=== PATIENT | male | born 1940 | race Caucasian/White ===

== ENCOUNTER 2016-09-02 01:41 | Observation (INO) | payer MEDICARE, BC ==
[~2016-09-02] VITALS: Ht 170.2 cm; Wt 78.0 kg
[2016-09-02] VITALS (12 sets, daily range): BP systolic 98–155; BP diastolic 46–73
[~2016-09-02 01:41] MED LIST: ALBU2.5V14 NEB; ALPR0.25 PO; ALPR0.254 PO; AMLO5TAB2 PO; ASPI-482 PO; ASPI-630 PO; ASPI325T8 PO; ATOR20TA PO; ATOR20TA58 PO; CLOP75TA57 PO; DM/P295L2 PO; DOCU-150 PO; ESCITALOPRAM OX20 MG PO; FURO-69 PO; GABA-586 PO; GUAI600T47 PO; IBUP200T58 PO; LEVO500T59 PO; LIDO30CR TP; LIDO700A4 TP; METO100T11 PO; METO25TA4 PO; MIDO10TA PO; MULT-245 PO; MULT-246 PO; ONDA4TAB11 PO; OXYC-323 PO; OXYC1TAB9 PO; PANT40TA5 PO; POLY17PO5 PO; POLY255P PO; POTA10TA10 PO; PRED-220 PO; PRED5TAB19 PO; PYRI50CA PO; SENN-79 PO; SIMV40TA3 PO; SULF1TAB24 PO; TEMA15CA PO; TEMA30CA PO
[2016-09-02] MEDS ORDERED: oxyCODONE/APAP 10/325 1 TAB TABLET PO PRN (03:30)
[2016-09-02] MEDS ORDERED: ONDANSETRON ODT 4 MG TAB.RAPDIS PO PRN (04:00)
[2016-09-02] MEDS ORDERED: TEMAZEPAM 15 MG CAPSULE PO PRN (04:15)
[2016-09-02 06:25] LABS: HEMATOCRIT 21.1 % (39.0-53.0); HEMOGLOBIN 7.4 g/dL (13.0-17.5)
[2016-09-02] MEDS ORDERED: PANTOPRAZOLE 40 MG TABLET. PO SCH (07:30)
[2016-09-02] MEDS ORDERED: predniSONE 10 MG TABLET PO SCH (08:00)
[2016-09-02] MEDS ORDERED: diphenhydrAMINE 50 MG/ML VIAL IVP PRN (08:15)
[2016-09-02] MEDS ORDERED: ASPIRIN 81 MG TAB.CHEW PO SCH (09:00)
[2016-09-02] MEDS ORDERED: MULTIVITAMIN with MINERAL TABLET. PO SCH (09:00)
[2016-09-02] MEDS ORDERED: ESCITALOPRAM 20 MG TABLET. PO SCH (09:00)
[2016-09-02] MEDS: MIDODRINE 5 MG TABLET PO SCH ×2 (09:02→16:57)
[2016-09-02] MEDS ORDERED: IV NORMAL SALINE 500ML 500 ML ONE (09:25)
[2016-09-02] MEDS ORDERED: FUROSEMIDE 20 MG/2 ML VIAL IVP ONE (12:00)
[2016-09-02 17:33] LABS: HEMATOCRIT 30.2 % (39.0-53.0); HEMOGLOBIN 10.6 g/dL (13.0-17.5)
[2016-09-02] MEDS ORDERED: TEMAZEPAM 15 MG CAPSULE PO SCH (21:00)
[2016-09-02] MEDS ORDERED: ATORVASTATIN CALCIUM 20 MG TABLET PO SCH (21:00)
== END 2016-09-02 18:20 | disposition home or self-care (01) ==
LOC: ICU 02:21 → INTOOBSV 02:21
PROVIDERS: ADMIT Family Medicine; ATTEND Family Medicine
DX: D46.1 Refractory anemia with ring sideroblasts (principal); D46.Z Other myelodysplastic syndromes; I10 Essential (primary) hypertension; E78.5 Hyperlipidemia, unspecified; N40.0 Benign prostatic hyperplasia without lower urinary tract symptoms; J45.909 Unspecified asthma, uncomplicated; J44.9 Chronic obstructive pulmonary disease, unspecified; F32.9 Major depressive disorder, single episode, unspecified; F17.210 Nicotine dependence, cigarettes, uncomplicated; Z87.438 Personal history of other diseases of male genital organs; Z87.898 Personal history of other specified conditions; Z85.46 Personal history of malignant neoplasm of prostate; Z86.010 Personal history of colon polyps; Z82.62 Family history of osteoporosis; Z80.42 Family history of malignant neoplasm of prostate
CPT/HCPCS: 36415; 36430; 85014; 85018; 86850; 86900; 86901; 86920; 87641; 96374; 96375; G0378; G0379; J1200; J1940; J7040; J7512; P9016

== ENCOUNTER 2019-01-18 16:44 | Inpatient (IN) | payer MEDICARE, BC ==
[~2019-01-18] VITALS: Ht 170.2 cm; Wt 73.2 kg
[~2019-01-18 16:44] MED LIST changes: +AMLO5TAB10 PO; -AMLO5TAB2 PO; +METO-247 PO; -METO100T11 PO; +ONDA-84 PO; -ONDA4TAB11 PO; -OXYC-323 PO; +OXYC-411 PO; +OXYC1TAB15 PO; -OXYC1TAB9 PO; -POLY255P PO; +POLY255P11 PO; -SENN-79 PO; +SENN-80 PO; +SIMV40TA18 PO; -SIMV40TA3 PO
--- NOTE | 2019-01-18 17:42 | PHYS DOC ---
Past History Past Medical History: Anxiety, Bronchitis, CAD, Cancer, CHF, Depression, High Cholesterol, Heart Disease, Hypertension, Pneumonia (ALFREDITO OHARA MD) Past Medical History: Anemia, CAD, Cancer, CHF, COPD, Hypertension (ANIBAL ORTIZ MD) Past Surgical History: Cancer Surgery, Tonsillectomy (ALFREDITO OHARA MD) Smoking: Cigarettes, Less than 1pk/day Alcohol Use: Occasionally Drug Use: None (ALFREDITO OHARA MD) Adult General Chief Complaint Chief Complaint: DIZZY/LIGHT HEADED HPI HPI Patient is a 78 -year-old male presenting with dizziness. Patient is a history of myelodysplastic syndrome transfusion-dependent gets them every 2 weeks usually gets them at [facility] but it closed down recently he has a history of CHF CABG Patient Dr. Mora patient says that he's been feeling weak or dizzy lightheaded mild headache he has typical bone pain symptoms these are all symptoms are Worse just before he needs a transfusion. He was supposed to get scheduled for this week but because he was feeling so dizzy and weak he came to the emergency room for evaluation denies chest pain denies melena denies ramón tochezia (ALFREDITO OHARA MD) Review of Systems Review of Systems Constitutional: Denies fever or chills [] Eyes: Denies change in visual acuity, redness, or eye pain [] HENT: Denies nasal congestion or sore throat [] Cardiovascular: No additional information not addressed in HPI [] Integument: Denies rash or skin lesions [] All other systems were reviewed and found to be within normal limits, except as documented in this note. (ALFREDITO OHARA MD) Allergies Allergies Allergies Coded Allergies Type Severity Reaction Last Updated Verified erythromycin base Allergy Intermediate 06/17/13 Yes naproxen Allergy Unknown 01/18/19 Yes pyridostigmine Allergy Unknown 01/18/19 Yes morphine Adverse Reaction Severe Nausea and Vomiting 02/05/14 Yes (ALFREDITO OHARA MD) Physical Exam Physical Exam Constitutional: Well developed, well nourished, no acute distress, non-toxic appearance. [] HENT: Normocephalic, atraumatic, bilateral external ears normal, oropharynx moist, no oral exudates, nose normal. [] Eyes: PERRLA, EOMI, conjunctiva normal, no discharge. [] Neck: Normal range of motion, no tenderness, supple, no stridor. [] Cardiovascular:Heart rate regular rhythm, 3/6 lorne noted Lungs & Thorax: decreased bibasilar sounds Abdomen: Bowel sounds normal, soft, no tenderness, no masses, no pulsatile masses. [] Skin:pale Back: No tenderness, no CVA tenderness. [] Extremities: No tenderness, no cyanosis, no clubbing, ROM intact, Neurologic: Alert and oriented X 3, normal motor function, normal sensory function, no focal deficits noted. [] Psychologic: Affect normal, judgement normal, mood normal. [] (ALFREDITO OHARA MD) Current Patient Data Vital Signs Vital Signs Date Time Temp Pulse Resp B/P (MAP) Pulse Ox O2 Delivery O2 Flow Rate FiO2 01/18/19 16:55 98.6 79 20 95 Room Air Lab Results mperature (Fahrenheit): * 98.6 degrees F (97.6-99.5) Patient Temperature * 98.6 degrees F (97.5-99.5) Temperature Source * Oral Blood Pressure Systolic * 141 mm Hg (100-140) H Blood Pressure Diastolic * 70 mm Hg (60-100) Blood Pressure Mean * 93 mm Hg Blood Pressure Location * Right Arm Blood Pressure Source * Automatic Cuff Pulse Rate * 79 beats per minute (60-90) Pulse Assessment Method * Monitor Respiratory Rate * 20 breaths per minute (12-24) Oxygen Delivery Method * Room Air Bedside Pulse Oximetry * 95 % Treatment Prior to Arrival (ALFREDITO OHARA MD) EKG EKG [] (ALFREDITO OHARA MD) Radiology/Procedures Radiology/Procedures [] (ALFREDITO OHARA MD) Course & Med Decision Making Course & Med Decision Making Pertinent Labs and Imaging studies reviewed. (See chart for details) []78 show male multiple medical problems and bypass surgery in the past congestive heart failure coronary artery disease myelodysplastic syndrome that is transfusion dependent apparently presenting with dizziness lightheadedness concerned about anemia this point time lab work and imaging is in process care will be signed over to Dr. Ortiz (ALFREDITO OHARA MD) Course & Med Decision Making PT. admitted to Dr. Marcelo- plan transfuse 2 units of PRBC. Pt. has hx of rapid drops of his hemoglobin. . 1. Anemia Hgb 8.4 2. Dizzy 3. Thrombocytopenia 73 4. DM =178 5. Hx. CHF 6. Hx CADz 7. Myleo dysplastic syndrome (ANIBAL ORTIZ MD) Dragon Disclaimer Dragon Disclaimer This electronic medical record was generated, in whole or in part, using a voice recognition dictation system. (ALFREDITO OHARA MD) Departure Departure: Disposition: 01 HOME/RESIDENCE PRIOR TO ADM Condition: STABLE Referrals: BERTRAM MARCELO MD (PCP) Dragon Disclaimer This chart was dictated in whole or in part using Voice Recognition software in a busy, high-work load, and often noisy Emergency Department environment. It may contain unintended and wholly unrecognized errors or omissions. (ANIBAL ORTIZ MD) Dragon Disclaimer This chart was dictated in whole or in part using Voice Recognition software in a busy, high-work load, and often noisy Emergency Department environment. It may contain unintended and wholly unrecognized errors or omissions. (ALFREDITO OHARA MD) Dragon Disclaimer This chart was dictated in whole or in part using Voice Recognition software in a busy, high-work load, and often noisy Emergency Department environment. It may contain unintended and wholly unrecognized errors or omissions. (ANIBAL ORTIZ MD) Dragon Disclaimer This chart was dictated in whole or in part using Voice Recognition software in a busy, high-work load, and often noisy Emergency Department environment. It may contain unintended and wholly unrecognized errors or omissions. (ALFREDITO OHARA MD) ALFREDITO OHARA MD Jan 18, 2019 17:42 ANIBAL ORTIZ MD Jan 18, 2019 19:01
[2019-01-18 17:45] LABS: BASO % 0 % (0-3); EOS % 0 % (0-3); HEMATOCRIT 25.2 % (39.0-53.0); HEMOGLOBIN 8.4 g/dL (13.0-17.5); LYMPH # 0.3 x10^3/uL (1.0-4.8); LYMPH % 5 % (24-48); MEAN CORPUSCULAR HEMOGLOBIN 31 pg (25-35); MEAN CORPUSCULAR HGB CONC 33 g/dL (31-37); MEAN CORPUSCULAR VOLUME 92 fL (79-100); MONO # 0.4 x10^3/uL (0.0-1.1); MONO % 7 % (0-9); NEUT # 4.8 x10^3uL (1.8-7.7); NEUT % 88 % (31-73); PLATELET COUNT 73 x10^3/uL (140-400); RED BLOOD COUNT 2.73 x10^6/uL (4.30-5.70); RED CELL DISTRIBUTION WIDTH 17.7 % (11.5-14.5); WHITE BLOOD COUNT 5.5 x10^3/uL (4.0-11.0)
--- NOTE | 2019-01-18 18:29 | RAD ---
Study: CHEST AP ONLY Indication: Dizziness and weakness. Comparison: 03/13/2016 Findings: Interval placement of a left chest wall Port-A-Cath with the tip terminating at the expected location of the distal superior vena cava. Unchanged configuration of the cardiomediastinal silhouette and rex. Linear lung markings at the right lung base that were mostly present on the prior and are suggestive of atelectasis or scarring. No discrete lobar infiltrate or layering effusion. Mild basilar volume loss and left. Millimetric nodular focus. In the left lung apex is most suggestive of a granuloma as a nodule of this size would not typically be seen by radiography unless calcified. Impression: 1. Normally positioned left chest wall Port-A-Cath. 2. No acute radiographic abnormality of the chest. Atelectasis or scarring at the right lung base as well as mild basilar volume loss on the left. Electronically signed by: CE LÓPEZ MD (01/18/2019 6:26 PM) [facility]
[2019-01-18 18:38] LABS: ALBUMIN 3.9 g/dL (3.4-5.0); ALBUMIN/GLOBULIN RATIO 1.7 (1.0-1.7); CREATININE 1.3 mg/dL (0.7-1.3); GFR 53.7; POTASSIUM 4.6 mmol/L (3.5-5.1); TOTAL BILIRUBIN 0.8 mg/dL (0.2-1.0); TOTAL PROTEIN 6.2 g/dL (6.4-8.2)
[2019-01-18] MEDS ORDERED: ONDANSETRON PF 4 MG/2 ML VIAL. IV PRN (18:45)
[2019-01-18] MEDS ORDERED: ACETAMINOPHEN 325 MG TABLET PO PRN (18:45)
[2019-01-18] MEDS ORDERED: diphenhydrAMINE 50 MG/ML VIAL IVP PRN (18:45)
[2019-01-18] MEDS ORDERED: ACETAMINOPHEN 500 MG TABLET PO PRN (19:00)
[2019-01-18 19:19] LABS: BACTERIA,URINE 0 /HPF (0-FEW); BILIRUBIN,URINE NEG (NEG); CLARITY,URINE CLEAR; COLOR,URINE YELLOW; GLUCOSE,URINE NEG (NEG); NITRITE,URINE NEG (NEG); RBC,URINE 0 /HPF (0-2); SQUAMOUS EPITHELIAL CELL,UR OCC /LPF; UROBILINOGEN,URINE 0.2 mg/dL (0.2 mg/dL); WBC,URINE OCC /HPF (0-4)
--- NOTE | 2019-01-18 20:30 | NUR ---
Admit to [facility] room 111 via EMS gurney. A/O x 4. VSS. Family at bedside. Orientated to room and wandy light. Reviewed POC to include RBC transfusion, Benadryl and lasix and not to get out of bed without assist. Patient verbalized understanding. Resting in bed with call light at hand. Family at bedside.
[2019-01-18 20:49] VITALS: BP 112/68
[2019-01-18] MEDS ORDERED: ALBU2.5V5 NEB (21:33)
[2019-01-18] MEDS ORDERED: BENZ-8 PO (21:35)
[2019-01-18] MEDS ORDERED: [UNRECOGNIZED DRUG - OTHER] TOP (21:38)
[2019-01-18] MEDS ORDERED: DEFERASIROX PO (21:54)
[2019-01-18] MEDS ORDERED: FOLI20CA PO (21:56)
[2019-01-18] MEDS ORDERED: FURO80TA3 PO (21:58)
[2019-01-18] MEDS ORDERED: FURO40TA4 PO (21:59)
[2019-01-18] MEDS ORDERED: HYDR28OI2 TP (22:01)
[2019-01-18] MEDS ORDERED: HYDR20TA PO (22:03)
[2019-01-18] MEDS ORDERED: HYDR10TA PO (22:04)
[2019-01-18] MEDS ORDERED: LOPE2CAP PO (22:09)
[2019-01-18] MEDS ORDERED: MIRT30TA3 PO (22:10)
[2019-01-18] MEDS ORDERED: NITR0.4T22 SL (22:11)
[2019-01-18] MEDS ORDERED: VIT1TABL32 PO (22:12)
[2019-01-18] MEDS ORDERED: POTA10TA5 PO (22:14)
[2019-01-18] MEDS ORDERED: SPIR50TA4 PO (22:16)
[2019-01-18] MEDS ORDERED: TIOT18CA IH (22:35)
[2019-01-18] MEDS ORDERED: oxyCODONE/APAP 10/325 1 TAB TABLET PO PRN (22:45)
[2019-01-18] MEDS ORDERED: BENZONATATE 100 MG CAPSULE. PO PRN (22:45)
[2019-01-18] MEDS ORDERED: NITROGLYCERIN SUBLINGUAL 0.4 MG BOTTLE OF 25. SL PRN (22:45)
[2019-01-18] MEDS ORDERED: HYDROCORTISONE 1% TOPICAL OINTMENT 30GM TUBE. TP PRN (23:00)
[2019-01-18] MEDS ORDERED: TEMAZEPAM 15 MG CAPSULE PO PRN (23:00)
[2019-01-18] MEDS ORDERED: ONDANSETRON ODT 4 MG TAB.RAPDIS PO PRN (23:00)
[2019-01-18 23:14] VITALS: BP 137/71
[2019-01-18 23:35] VITALS: BP 116/68
[2019-01-18 23:50] VITALS: BP 121/73
[2019-01-19] VITALS (12 sets, daily range): BP systolic 100–122; BP diastolic 53–74
[2019-01-19] MEDS ORDERED: ALBUTEROL SULFATE 2.5 MG/3 ML NEBU. NEB PRN
[2019-01-19] MEDS: FUROSEMIDE 40 MG/4 ML VIAL IVP PRN ×2 (02:39→15:21)
[2019-01-19 07:13] LABS: BASO % 0 % (0-3); EOS % 0 % (0-3); HEMATOCRIT 26.2 % (39.0-53.0); HEMOGLOBIN 8.8 g/dL (13.0-17.5); LYMPH # 0.6 x10^3/uL (1.0-4.8); LYMPH % 10 % (24-48); MEAN CORPUSCULAR HEMOGLOBIN 31 pg (25-35); MEAN CORPUSCULAR HGB CONC 34 g/dL (31-37); MEAN CORPUSCULAR VOLUME 92 fL (79-100); MONO # 0.6 x10^3/uL (0.0-1.1); MONO % 10 % (0-9); NEUT # 4.8 x10^3uL (1.8-7.7); NEUT % 80 % (31-73); PLATELET COUNT 71 x10^3/uL (140-400); RED BLOOD COUNT 2.85 x10^6/uL (4.30-5.70); RED CELL DISTRIBUTION WIDTH 16.2 % (11.5-14.5); WHITE BLOOD COUNT 5.9 x10^3/uL (4.0-11.0)
[2019-01-19 07:27] LABS: CREATININE 1.2 mg/dL (0.7-1.3); GFR 58.9
[2019-01-19] MEDS ORDERED: HYDROCORTISONE 10 MG TABLET PO SCH ×2 (08:00→21:00)
[2019-01-19] MEDS: IPRATRPIUM/ALBUTEROL 0.5/2.5MG 3 ML NEBU. NEB SCH ×2 (08:00→15:56)
[2019-01-19] MEDS ORDERED: POTASSIUM CHLORIDE 10 MEQ TABLET.ER. PO SCH (08:00)
[2019-01-19] MEDS ORDERED: LOPERAMIDE 2 MG CAPSULE PO SCH (09:00)
[2019-01-19] MEDS ORDERED: FUROSEMIDE 80 MG TABLET PO SCH (09:00)
[2019-01-19] MEDS ORDERED: SPIRONOLACTONE 25 MG TABLET PO SCH (09:00)
[2019-01-19] MEDS ORDERED: ASPIRIN 81 MG TAB.CHEW PO SCH (09:00)
[2019-01-19] MEDS ORDERED: FOLIC ACID 1 MG TABLET PO SCH (09:00)
[2019-01-19] MEDS ORDERED: CITALOPRAM 20 MG TABLET. PO SCH (09:00)
[2019-01-19] MEDS ORDERED: MULTIVITAMIN I-VITE TABLET. PO SCH (09:00)
[2019-01-19] MEDS ORDERED: diphenhydrAMINE HCL 25 MG CAPSULE PO PRN (11:15)
--- NOTE | 2019-01-19 11:17 | HP ---
ADMIT DATE: 01/18/2019 HISTORY OF PRESENT ILLNESS: A 78-year-old male with history of myelodysplastic syndrome. The patient has been feeling lightheaded and tired and weak. He has a standing order with Dr. Payton who is the head of Hematology/Oncology down at to receive blood transfusions for hemoglobins of 8 if he is symptomatic. He said he was symptomatic and so he was brought in for transfusion of 1 unit packed RBCs. Went up to 8.6 or 8 I believe and referral was made to Dr. Sánchez, pathologist who agreed to give him a second unit for now until Dr. Edwards could discuss with Dr. Payton the necessity of these situations with his transfusions, so the patient was admitted for transfusion. PAST MEDICAL HISTORY: As noted myelodysplastic disorder, right carotid endarterectomy, right-sided neck numbness since endarterectomy, chronic AFib, heart murmur, aneurysms, AAA, hypercholesterolemia, interstitial lung disease, cholecystectomy, bowel surgery, obesity. He has had myelodysplastic syndrome, orthopedic surgery of the right knee x 2, psychiatric problems, depression, anemia, cancer. IMMUNIZATIONS: Tetanus diphtheria, influenza, pneumococcal all up-to-date. FAMILY HISTORY: Mother with lung cancer, father with some form of cancer. Brother with cancer. ALLERGIES: ADVERSE EFFECTS TO ERYTHROMYCIN, MORPHINE, NAPROXEN AND PYRIDOSTIGMINE. SOCIAL HISTORY: The patient used to be a former smoker, but has not smoked for many years. Denies alcohol or drug use. CODE STATUS: The patient is a full code. REVIEW OF SYSTEMS: The patient has lightheadedness, shortness of breath, more so than usual. Denies chest pain; however, denies abdominal pain. Denies nausea, vomiting, melena, hematochezia, or hematemesis. Neurologically baseline except for his weakness, which he attributes to the low blood count. MEDICATIONS: Spiriva, albuterol, DuoNeb treatments, Lipitor 20, nitroglycerin, spironolactone, aspirin, oxycodone, Lexapro, temazepam, potassium chloride, furosemide, benzoate, loperamide, hydrocortisone, folic acid, multivitamins, deferasirox. PHYSICAL EXAMINATION: GENERAL: This is a white male, looking a little bit weak, lightheaded. VITAL SIGNS: Blood pressure 88/83, respiratory rate 20, pulse 92, afebrile. HEENT: The patient's head was atraumatic, normocephalic. Eyes: PERRLA without jaundice. The mouth and throat were normal. NECK: Supple, no JVD or thyromegaly. LUNGS: Diminished, but basically clear. CARDIOVASCULAR: Irregularly irregular rhythm. ABDOMEN: Soft, nontender, no rebound or guarding. Positive bowel sounds, no hepatosplenomegaly was noted. EXTREMITIES: No clubbing, cyanosis or edema. NEUROLOGIC: The patient was alert and oriented, little bit lightheaded, weak as noted, but otherwise no focal neurological abnormalities were noted throughout this individual. LABORATORY DATA: Showed an initial hemoglobin of 8.4 and hematocrit 25, white count 5, platelets low at 73. Sodium and potassium 137 and 4.6, BUN and creatinine 29 and 1.3, and a blood sugar in the 150s average. IMPRESSION: Myelodysplastic syndrome, anemia secondary to #1, history of congestive heart failure. PLAN: The patient will be transfused as noted in the HPI. BERTRAM MARCELO MD DR: DONALDO/silvia JOB#: [id number] / [id number]
--- NOTE | 2019-01-19 11:45 | NUR ---
1 more unit was ordered Dr Escudero did speak with Dr Sánchez the pathologist. PT can be discharged after second unit is complete, then pt will be coming in for scheduled blood transfusions. Wale HILLS
--- NOTE | 2019-01-19 13:00 | NUR ---
Tubing primed with saline then blood. Started transfusion at 60 cc per hour for 15 minutes, no reaction noted and increased rate to 100. IV started to leak, port was accessed using sterile technique with at 20g barnett needle. Blood transfusing with ease. Wale Mcdonough
[2019-01-19] MEDS ORDERED: FUROSEMIDE 40 MG/4 ML VIAL IVP ONE (13:30)
--- NOTE | 2019-01-19 15:24 | NUR ---
Blood transfusion completed,pt tolerated well. PT to be discharged home. Inge HILLS
--- NOTE | 2019-01-19 15:45 | NUR ---
PT dc to home. PT is able to verbalize understanding of discharge instructions and medications. Pt to have an H and H on Sunday. PT is in the process of setting up outpatient transfusion orders for q 2 weeks here OP. After DR Escudero had to call to talk to DR Sánchez the pathologist today, They want to review his outpatient case before authorizing. Wale HILLS
[2019-01-19] MEDS ORDERED: FUROSEMIDE 40 MG TABLET PO SCH (16:00)
[2019-01-19] MEDS ORDERED: MIRTAZAPINE 30 MG TABLET PO SCH (21:00)
[2019-01-19] MEDS ORDERED: ATORVASTATIN CALCIUM 20 MG TABLET PO SCH (21:00)
--- NOTE | 2019-01-20 12:14 | EKG ---
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
--- NOTE | 2019-01-24 17:17 | DS ---
DATE OF DISCHARGE: 01/19/2019 HOSPITAL COURSE: A 78-year-old gentleman came in for blood transfusion. He has a myelodysplastic syndrome. He is followed by doctors at the Hematology department at the [facility] They in turn have given the order to transfuse this gentleman if his hemoglobin goes in the low 8s and he is symptomatic. He did come in feeling generalized weakness and shortness of breath and as a result of this, he was feeling lightheaded, tired and weak. The patient came in and was given 1 unit and then the second unit was approved by the pathologist. He will talk to the surveillance sensor officer/oncologist, Dr. Strange down at to determine whether or not this gentleman needs this much blood. But in the meantime, he was transfused. His last blood pressure 122/74, respiratory rate 20, pulse was good at 80. The patient had a chest x-ray, which showed a Port-A-Cath, otherwise, basically unremarkable. The patient made good progress. See MRAD. He will be on a regular diet, decreased activity. Followup with his doctors down there at for further evaluation. IMPRESSION: Myelodysplastic disorder, anemia secondary to #1. PLAN: As above. Continue to monitor the patient as an outpatient and make further evaluation on him as indicated. BERTRAM MARCELO MD DR: DONALDO/silvia JOB#: [id number] / [id number]
== END 2019-01-19 15:45 | disposition home or self-care (01) | DRG 74 ==
LOC: ER 16:44 → 1 SOUTH 19:21
PROVIDERS: ADMIT Family Medicine; ATTEND Family Medicine
PROC: 30233N1 Transfusion of Nonautologous Red Blood Cells into Peripheral Vein, Percutaneous Approach (ICD-10-PCS; principal; 2019-01-18)
DX: G90.8 Other disorders of autonomic nervous system (principal); I48.20 Chronic atrial fibrillation, unspecified; D46.9 Myelodysplastic syndrome, unspecified; F41.9 Anxiety disorder, unspecified; I25.10 Atherosclerotic heart disease of native coronary artery without angina pectoris; I11.0 Hypertensive heart disease with heart failure; I50.9 Heart failure, unspecified; E78.00 Pure hypercholesterolemia, unspecified; J44.9 Chronic obstructive pulmonary disease, unspecified; D69.6 Thrombocytopenia, unspecified; D63.8 Anemia in other chronic diseases classified elsewhere; F32.9 Major depressive disorder, single episode, unspecified; E66.9 Obesity, unspecified; Z68.25 Body mass index [BMI] 25.0-25.9, adult; Z80.1 Family history of malignant neoplasm of trachea, bronchus and lung; Z95.1 Presence of aortocoronary bypass graft; Z88.1 Allergy status to other antibiotic agents; Z88.5 Allergy status to narcotic agent; Z87.891 Personal history of nicotine dependence
CPT/HCPCS: 36415; 71045; 80048; 80053; 81001; 83036; 84484; 85025; 85045; 86850; 86900; 86901; 86920; 93005; J1200; J1940; P9016; Q0163; 99285-25

== ENCOUNTER 2019-04-18 00:11 | Inpatient (IN) | payer MEDICARE, BC ==
[2019-04-18] VITALS (13 sets, daily range): BP systolic 102–120; BP diastolic 50–74
[~2019-04-18] VITALS: Ht 170.2 cm; Wt 76.9 kg
[~2019-04-18 00:11] MED LIST changes: +ALBU2.5V5 NEB; +BENZ-8 PO; +DEFERASIROX PO; +FOLI20CA PO; +FURO40TA4 PO; +FURO80TA3 PO; +HYDR10TA PO; +HYDR20TA PO; +HYDR28OI2 TP; +LOPE2CAP PO; +MIRT30TA3 PO; +NITR0.4T22 SL; +POTA10TA5 PO; +SPIR50TA4 PO; +TIOT18CA IH; +VIT1TABL32 PO; +[UNRECOGNIZED DRUG - OTHER] TOP
--- NOTE | 2019-04-18 00:46 | PHYS DOC ---
Past History Past Medical History: Anemia, CAD, Cancer, CHF, COPD, Hypertension Past Surgical History: Cancer Surgery, Tonsillectomy Smoking: Cigarettes, Less than 1pk/day Alcohol Use: Occasionally Drug Use: None Adult General Chief Complaint Chief Complaint: SHORTNESS OF BREATH HPI HPI Patient is a 78-year-old male with history of CAD, congestive heart failure, mild dysplastic syndrome and anemia who presents with progressive shortness breath past several hours. Patient wears oxygen at rest reports increased dyspnea with mild exertion and when supine. Reports chronic cough with clear sputum. No fevers chills or sweats. Reports chest tightness no chest pain. No abdominal pain. Denies increased leg pain or swelling. States she frequently becomes short of breath when his hemoglobin drops below 8.5 g/dL. Last had CBC drawn 2 days ago with a hemoglobin of 9.7 g/dL noted. [] Review of Systems Review of Systems Review of symptoms as per history of present illness. All other review symptoms are negative All other systems were reviewed and found to be within normal limits, except as documented in this note. Allergies Allergies Allergies Coded Allergies Type Severity Reaction Last Updated Verified erythromycin base Allergy Intermediate 06/17/13 Yes naproxen Allergy Unknown 01/18/19 Yes pyridostigmine Allergy Unknown 01/18/19 Yes morphine Adverse Reaction Severe Nausea and Vomiting 02/05/14 Yes Physical Exam Physical Exam Constitutional: Well developed, well nourished, no acute distress, non-toxic appearance. [] HENT: Normocephalic, atraumatic, bilateral external ears normal, oropharynx moist, no oral exudates, nose normal. [] Eyes: PERRLA, EOMI, conjunctiva normal, no discharge. [] Neck: Normal range of motion, no tenderness, supple, no stridor. [] Cardiovascular: Irregular rhythm, systolic heart murmur[] Lungs & Thorax respirations nonlabored, coarse breath sounds throughout all lung solitario most pronounced at bases, trace peripheral edema [] Abdomen: Bowel sounds normal, soft, no tenderness, no masses, no pulsatile masses. [] Skin: Warm, dry, no erythema, no rash. [] ] Extremities: No tenderness, no cyanosis, no clubbing, ROM intact, no edema. [] Neurologic: Alert and oriented X 3, normal motor function, normal sensory func tion, no focal deficits noted. [] Psychologic: Affect normal, judgement normal, mood normal. [] Current Patient Data Vital Signs Vital Signs Date Time Temp Pulse Resp B/P (MAP) Pulse Ox O2 Delivery O2 Flow Rate FiO2 04/18/19 00:11 98.0 77 16 84/34 (51) 97 Room Air EKG EKG EKG: A. fib, rate 80, no acute ST-T wave changes, QTC[] Radiology/Procedures Radiology/Procedures Chest x-ray: Pulmonary vascular congestion] Course & Med Decision Making Course & Med Decision Making Pertinent Labs and Imaging studies reviewed. (See chart for details) [CHF exacerbation. IV lasix given. Will admit to Dr. Escudero's service. ] Dragon Disclaimer Dragon Disclaimer This electronic medical record was generated, in whole or in part, using a voice recognition dictation system. Departure Departure: Impression: Primary Impression: Anemia Additional Impression: Dyspnea Disposition: ADMITTED INPATIENT Admitting Physician: Dean Escudero Condition: IMPROVED Referrals: DEAN ESCUDERO MD (PCP) Problem Qualifiers SHADE CROWE DO Apr 18, 2019 00:46
--- NOTE | 2019-04-18 00:49 | RAD ---
CHEST AP ONLY History: Shortness of breath Comparison: January 18, 2019 Findings: Mild bibasilar linear atelectasis. Stable left chest wall port. No pleural effusion. No pneumothorax. Unchanged heart size. Impression: 1. Mild bibasilar linear atelectasis. Electronically signed by: Giles Cline DO (04/18/2019 12:46 AM) [id number]
[2019-04-18] MEDS ORDERED: FUROSEMIDE 40 MG/4 ML VIAL IVP ONE (01:00)
[2019-04-18 01:12] LABS: BASO % 0 % (0-3); EOS % 0 % (0-3); HEMATOCRIT 26.4 % (39.0-53.0); HEMOGLOBIN 8.6 g/dL (13.0-17.5); LYMPH # 0.5 x10^3/uL (1.0-4.8); LYMPH % 9 % (24-48); MEAN CORPUSCULAR HEMOGLOBIN 30 pg (25-35); MEAN CORPUSCULAR HGB CONC 33 g/dL (31-37); MEAN CORPUSCULAR VOLUME 92 fL (79-100); MONO # 0.6 x10^3/uL (0.0-1.1); MONO % 10 % (0-9); NEUT # 4.8 x10^3uL (1.8-7.7); NEUT % 81 % (31-73); PLATELET COUNT 113 x10^3/uL (140-400); RED BLOOD COUNT 2.86 x10^6/uL (4.30-5.70); RED CELL DISTRIBUTION WIDTH 16.9 % (11.5-14.5); WHITE BLOOD COUNT 5.9 x10^3/uL (4.0-11.0)
[2019-04-18 01:19] LABS: CALCIUM 7.5 mg/dL (8.5-10.1); CREATININE 1.2 mg/dL (0.7-1.3); GFR 58.9; POTASSIUM 3.9 mmol/L (3.5-5.1)
[2019-04-18 01:25] LABS: ALBUMIN 4.1 g/dL (3.4-5.0); ALBUMIN/GLOBULIN RATIO 1.7 (1.0-1.7); TOTAL BILIRUBIN 0.8 mg/dL (0.2-1.0); TOTAL PROTEIN 6.5 g/dL (6.4-8.2)
[2019-04-18] MEDS ORDERED: ONDANSETRON PF 4 MG/2 ML VIAL. IV PRN (01:30)
[2019-04-18] MEDS ORDERED: IV NORMAL SALINE 1,000ML 1,000 ML IV ONE (02:15)
[2019-04-18] MEDS: oxyCODONE/APAP 10/325 1 TAB TABLET PO PRN ×2 (03:52→18:03)
--- NOTE | 2019-04-18 04:25 | EKG ---
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
[2019-04-18 05:28] LABS: BASO % 1 % (0-3); EOS % 0 % (0-3); HEMATOCRIT 23.5 % (39.0-53.0); HEMOGLOBIN 7.8 g/dL (13.0-17.5); LYMPH # 0.6 x10^3/uL (1.0-4.8); LYMPH % 13 % (24-48); MEAN CORPUSCULAR HEMOGLOBIN 30 pg (25-35); MEAN CORPUSCULAR HGB CONC 33 g/dL (31-37); MEAN CORPUSCULAR VOLUME 92 fL (79-100); MONO # 0.5 x10^3/uL (0.0-1.1); MONO % 10 % (0-9); NEUT # 3.5 x10^3uL (1.8-7.7); NEUT % 77 % (31-73); PLATELET COUNT 98 x10^3/uL (140-400); RED BLOOD COUNT 2.56 x10^6/uL (4.30-5.70); RED CELL DISTRIBUTION WIDTH 17.1 % (11.5-14.5); WHITE BLOOD COUNT 4.6 x10^3/uL (4.0-11.0)
[2019-04-18 05:34] LABS: CALCIUM 7.2 mg/dL (8.5-10.1); CREATININE 1.2 mg/dL (0.7-1.3); GFR 58.9; POTASSIUM 3.7 mmol/L (3.5-5.1)
[2019-04-18] MEDS ORDERED: HEPARIN PF 500 UNIT/5 ML DISP.SYRIN. IVP ONE (06:30)
[2019-04-18] MEDS ORDERED: ACETAMINOPHEN 325 MG TABLET PO ONE (06:30)
[2019-04-18] MEDS ORDERED: diphenhydrAMINE 50 MG/ML VIAL IVP ONE (06:30)
[2019-04-18] MEDS ORDERED: FUROSEMIDE 20 MG/2 ML VIAL IVP ONE ×2 (06:30)
[2019-04-18] MEDS ORDERED: LOPERAMIDE 2 MG CAPSULE PO SCH (09:00)
[2019-04-18] MEDS ORDERED: FUROSEMIDE 40 MG/4 ML VIAL IVP SCH (09:00)
[2019-04-18] MEDS ORDERED: clonazePAM 0.5 MG TABLET PO PRN (09:45)
[2019-04-18] MEDS: POTASSIUM CHLORIDE 10 MEQ TABLET.ER. PO SCH (10:05)
[2019-04-18] MEDS: ASPIRIN 81 MG TAB.CHEW PO SCH (10:05)
[2019-04-18] MEDS: CITALOPRAM 20 MG TABLET. PO SCH (10:05)
[2019-04-18] MEDS: FOLIC ACID 1 MG TABLET PO SCH (10:05)
--- NOTE | 2019-04-18 12:41 | RAD ---
Clinical Indications: Syncope. History of right endarterectomy.. Exam : Carotid Duplex with Grayscale Ultrasound and Spectral and Color Doppler Analysis: PQRS Compliance Statement - Stenosis calculations for CT, MR and conventional angiography are based upon measurement of the distal ICA diameter in accordance with the NASCET methodology. Stenosis calculations for carotid ultrasound studies are derived from validated velocity criteria which are known to correlate with the NASCET methodology. Comparison study: None available. Findings: The common, internal and external carotid arteries were examined by grayscale, color and spectral Doppler ultrasound. Postendarterectomy changes are present in the right internal carotid artery. Scattered atherosclerotic plaque along the right common carotid artery is present. Heavier plaque burden is present along the left carotid artery system. Flow in both vertebral arteries was antegrade and normal. The following are the velocities and ratios in the carotid arteries on both sides: RIGHT ICA PV: 122cm/sec RIGHT CCA PV: 73cm/sec RIGHT ICA ED: 60cm/sec RIGHT IC/CCPV: 1.6 RIGHT VERTEBRAL: antegrade flow RIGHT % STENOSIS: Less than 50 percent LEFT ICA PV: 308cm/sec LEFT CCA PV: 54cm/sec LEFT ICA ED: 113cm/sec LEFT IC/CCPV: 4.1 LEFT VERTEBRAL: antegrade flow LEFT % STENOSIS: Greater than 70 percent <50% ICA Stenosis: PSV < 125cm/s (EDV < 40cm/s; SVR < 2.0) 50-69% ICA Stenosis: PSV < 125-229cm/s (EDV 40-99cm/s; SVR 2.0-3.9) >70% ICA Stenosis: PSV > 230cm/s (EDV >100cm/s; SVR >4.0) Impression: 1. Greater than 70 percent stenosis of the left proximal internal carotid artery 2. Less than 50 percent stenosis of the distal right internal carotid artery, status post endarterectomy. Electronically signed by: Blanca Mckeon MD (04/18/2019 12:38 PM) [id number]
[2019-04-18] MEDS ORDERED: LOPERAMIDE 2 MG CAPSULE PO PRN (14:15)
[2019-04-18] MEDS: clonazePAM 0.5 MG TABLET PO PRN (14:18)
--- NOTE | 2019-04-18 14:42 | PDOC2 ---
CONSULT Date of Admission DATE: 04/18/19 TIME: 14:27 Reason for Consult: Congestive heart failure Referring Physician: Dr. Escudero Chief Complaint Shortness of breath Source: Chart review, Patient Problem List Problems Medical Problems: (1) Anemia Status: Acute (2) Dyspnea Status: Acute History of Present Illness 78-year-old male with history of coronary artery disease, heart failure with preserved ejection fraction, tricuspid regurgitation with RV dilatation, s/p Cardiomems usually followed by heart failure and transplant clinic at [facility] has history of myelodysplastic syndrome and has had recurrent outpatient blood transfusions at [facility] in the past. He felt like his anemia was coming back with his usual symptoms of dyspnea on mild exertion and initially presented to [facility] and subsequently transferred to [facility] for blood transfusion for hemoglobin of 7.8. He denied any chest pain, palpitations or syncope. His dyspnea improved since admission after diuresis and blood transfusion. Past Medical History Heart failure with preserved ejection fraction Severe tricuspid regurgitation with RV dilatation and dysfunction Coronary artery disease s/p PTCA without any stent placement in 2009 Abdominal aortic aneurysm s/p surgical repair in 2009 CardioMEMS placement 2-3 years ago with last check showing PAD 15 mmHg Myelodysplastic syndrome with recurrent anemia and blood transfusions Paroxysmal atrial fibrillation CAD stage 3 Adrenal insufficiency Pulmonary embolism Interstitial lung disease Depression Carotid artery stenosis Past Surgical History Tonsillectomy Surgical repair of abdominal aortic aneurysm Family History Not contributory Social History Patient smokes less than one pack of cigars daily and admitted to occasional alcohol use. He denied any drug abuse Current Medications Current Medications Furosemide (Lasix) 40 mg 1X ONCE IVP Last administered on 04/18/19at 01:50; Start 04/18/19 at 01:00; Stop 04/18/19 at 01:02; Status DC Ondansetron HCl (Zofran) 4 mg PRN Q4HRS PRN IV NAUSEA/VOMITING; Start 04/18/19 at 01:30; Stop 04/19/19 at 01:29 Furosemide (Lasix) 40 mg Q12HR IVP ; Start 04/18/19 at 09:00; Stop 04/18/19 at 14:07; Status DC Sodium Chloride 1,000 ml @ 60 mls/hr 1X ONCE IV Last administered on 04/18/19at 02:06; Start 04/18/19 at 02:15; Stop 04/18/19 at 18:54 Oxycodone/ Acetaminophen (Percocet 10/325) 1 tab PRN Q6HRS PRN PO PAIN Last administered on 04/18/19at 03:52; Start 04/18/19 at 03:15 Acetaminophen (Tylenol) 650 mg 1X ONCE PO Last administered on 04/18/19at 07:07; Start 04/18/19 at 06:30; Stop 04/18/19 at 06:31; Status DC Diphenhydramine HCl (Benadryl) 25 mg 1X ONCE IVP Last administered on 04/18/19 07:07; Start 04/18/19 at 06:30; Stop 04/18/19 at 06:31; Status DC Furosemide (Lasix) 20 mg 1X ONCE IVP Last administered on 04/18/19at 10:04; Start 04/18/19 at 06:30; Stop 04/18/19 at 06:31; Status DC Furosemide (Lasix) 20 mg 1X ONCE IVP ; Start 04/18/19 at 06:30; Stop 04/18/19 at 06:31; Status DC Heparin Sodium (Porcine) (Hep Lock Adult) 500 unit 1X ONCE IVP ; Start 04/18/19 at 06:30; Stop 04/18/19 at 06:31; Status DC Aspirin (Children'S Aspirin) 81 mg DAILY PO Last administered on 04/18/19at 10:05; Start 04/18/19 at 09:00 Loperamide HCl (Imodium) 2 mg DAILY PO ; Start 04/18/19 at 09:00 Citalopram Hydrobromide (CeleXA) 40 mg DAILY PO Last administered on 04/18/19at 10:05; Start 04/18/19 at 09:00 Folic Acid (Folic Acid) 1 mg DAILY PO Last administered on 04/18/19 10:05; Start 04/18/19 at 09:00 Potassium Chloride (Klor-Con) 10 meq DAILYWBKFT PO Last administered on 04/18/19at 10:05; Start 04/18/19 at 09:00 Clonazepam (KlonoPIN) 0.5 mg PRN Q8HRS PRN PO ANXIETY / AGITATION Last administered on 04/18/19at 10:05; Start 04/18/19 at 09:45; Stop 04/18/19 at 14:07; Status DC Clonazepam (KlonoPIN) 0.5 mg PRN Q4HRS PRN PO ANXIETY / AGITATION Last administered on 04/18/19at 14:18; Start 04/18/19 at 14:15 Furosemide (Lasix) 40 mg [id number] IVP ; Start 04/18/19 at 14:30 Active Scripts Active Temazepam 30 Mg Capsule 1 Cap PO QHS Reported Spiriva (Tiotropium [place]) 18 Mcg Cap.w.dev 18 Mcg IH DAILY Spironolactone 50 Mg Tablet 50 Mg PO DAILY Klor-Con 10 (Potassium Chloride) 10 Meq Tablet.er 4 Tab PO DAILY 30 Days Ocuvite Tablet (Vit A,C & E/Lutein/Minerals) 1 Each Tablet 1 Tab PO DAILY 30 Days NITROGLYCERIN SubLingual (Nitroglycerin) 0.4 Mg Tab.subl 0.4 Mg SL PRN Q5MIN PRN Mirtazapine 30 Mg Tablet 30 Mg PO HS Loperamide (Loperamide Hcl) 2 Mg Capsule 2 Mg PO DAILY Take 2 capsules by mouth initially, followed by 1 capsule by mouth after each loose stool up to a maximum of 8 tablets in 24 hours Cortef (Hydrocortisone) 10 Mg Tablet 10 Mg PO HS Cortef (Hydrocortisone) 20 Mg Tablet 20 Mg PO DAILY Hydrocortisone (Hydrocortisone Acetate) 28 Gm Oint...g. 28 Gm TP Q6HRS Furosemide 80 Mg Tablet 80 Mg PO DAILY Folic Acid 20 Mg Capsule 1 Cap PO DAILY 30 Days [Deferasirox] Unknown Dose PO [clobetas] TOP WEEKLY Benzonatate 100 Mg Capsule 100 Mg PO Q4HRS PRN Albuterol Sulfate Neb Soln (Albuterol Sulfate) 2.5 Mg/3 Ml Vial.neb 2.5 Mg NEB Q6HRS Oxycodone-Acetaminophen 10-325 (Oxycodone Hcl/Acetaminophen) 1 Each Tablet 1 Tab PO PRN Q6HRS PRN NEXT DOSE DUE: DATE: TODAY TIME: IF NEEDED Aspirin 81 Mg Tab.chew 81 Mg PO DAILY NEXT DOSE DUE: DATE: RESTART TODAY TIME: WHEN YOU GET HOME Atorvastatin Calcium 20 Mg Tablet 20 Mg PO QHS LAST DOSE GIVEN: DATE: YESTERDAY TIME: AT BEDTIME NEXT DOSE DUE: DATE: TODAY TIME: AT BEDTIME Ondansetron Hcl 4 Mg Tablet 8 Mg PO Q8HRS PRN NEXT DOSE DUE: DATE: TODAY TIME: IF NEEDED Escitalopram Oxalate 20 Mg Tablet 1 Tab PO DAILY NEXT DOSE DUE: DATE: RESTART TODAY TIME: WHEN YOU GET HOME Allergies: Coded Allergies: erythromycin base (Verified Allergy, Intermediate, 06/17/13) naproxen (Verified Allergy, Unknown, 01/18/19) pyridostigmine (Verified Allergy, Unknown, 01/18/19) morphine (Verified Adverse Reaction, Severe, Nausea and Vomiting, 02/05/14) PSYCHOLOGICAL ROS: No: Hallucinations Eyes: No: Loss of vision HEENT: No: Epistaxis Respiratory: YES: Cough, Shortness of breath; No: Hemoptysis Cardiovascular: No: Chest Pain Gastrointestinal: No: Vomiting, Diarrhea Neurological: No: Seizures Skin: No: Rash General: Alert, No acute distress HEENT: Atraumatic, PERRLA Lungs: Other (scattered crepitation bilaterally) Heart: Regular rate, Other (PSM left lower PSB) Abdomen: Soft Extremities: Other (trace edema) Psych/Mental Status: Mood NL VITALS Vital Signs Date Time Temp Pulse Resp B/P (MAP) Pulse Ox O2 Delivery O2 Flow Rate FiO2 04/18/19 11:41 98.0 86 16 117/52 (73) 98 Nasal Cannula 3.0 Labs Laboratory Tests Test 04/18/19 00:49 04/18/19 05:10 04/18/19 08:08 White Blood Count 5.9 x10^3/uL (4.0-11.0) 4.6 x10^3/uL (4.0-11.0) Red Blood Count 2.86 x10^6/uL (4.30-5.70) 2.56 x10^6/uL (4.30-5.70) Hemoglobin 8.6 g/dL (13.0-17.5) 7.8 g/dL (13.0-17.5) Hematocrit 26.4 % (39.0-53.0) 23.5 % (39.0-53.0) Mean Corpuscular Volume 92 fL (79-100) 92 fL (79-100) Mean Corpuscular Hemoglobin 30 pg (25-35) 30 pg (25-35) Mean Corpuscular Hemoglobin Concent 33 g/dL (31-37) 33 g/dL (31-37) Red Cell Distribution Width 16.9 % (11.5-14.5) 17.1 % (11.5-14.5) Platelet Count 113 x10^3/uL (140-400) 98 x10^3/uL (140-400) Neutrophils (%) (Auto) 81 % (31-73) 77 % (31-73) Lymphocytes (%) (Auto) 9 % (24-48) 13 % (24-48) Monocytes (%) (Auto) 10 % (0-9) 10 % (0-9) Eosinophils (%) (Auto) 0 % (0-3) 0 % (0-3) Basophils (%) (Auto) 0 % (0-3) 1 % (0-3) Neutrophils # (Auto) 4.8 x10^3uL (1.8-7.7) 3.5 x10^3uL (1.8-7.7) Lymphocytes # (Auto) 0.5 x10^3/uL (1.0-4.8) 0.6 x10^3/uL (1.0-4.8) Monocytes # (Auto) 0.6 x10^3/uL (0.0-1.1) 0.5 x10^3/uL (0.0-1.1) Eosinophils # (Auto) 0.0 x10^3/uL (0.0-0.7) 0.0 x10^3/uL (0.0-0.7) Basophils # (Auto) 0.0 x10^3/uL (0.0-0.2) 0.0 x10^3/uL (0.0-0.2) Sodium Level 140 mmol/L (136-145) 139 mmol/L (136-145) Potassium Level 3.9 mmol/L (3.5-5.1) 3.7 mmol/L (3.5-5.1) Chloride Level 102 mmol/L (98-107) 102 mmol/L (98-107) Carbon Dioxide Level 27 mmol/L (21-32) 28 mmol/L (21-32) Anion Gap 11 (6-14) 9 (6-14) Blood Urea Nitrogen 24 mg/dL (8-26) 23 mg/dL (8-26) Creatinine 1.2 mg/dL (0.7-1.3) 1.2 mg/dL (0.7-1.3) Estimated GFR (Cockcroft-Gault) 58.9 58.9 BUN/Creatinine Ratio 20 (6-20) Glucose Level 120 mg/dL (70-99) 121 mg/dL (70-99) Calcium Level 7.5 mg/dL (8.5-10.1) 7.2 mg/dL (8.5-10.1) Total Bilirubin 0.8 mg/dL (0.2-1.0) Aspartate Amino Transf (AST/SGOT) 16 U/L (15-37) Alanine Aminotransferase (ALT/SGPT) 29 U/L (16-63) Alkaline Phosphatase 66 U/L (46-116) Troponin I Quantitative 0.078 ng/mL (0-0.055) 0.076 ng/mL (0-0.055) 0.081 ng/mL (0-0.055) KT-Qzi-O-Type Natriuretic Peptide 3141 pg/mL (0-449) Total Protein 6.5 g/dL (6.4-8.2) Albumin 4.1 g/dL (3.4-5.0) Albumin/Globulin Ratio 1.7 (1.0-1.7) Creatine Kinase < 15 U/L (39-308) Assessment/Plan 1. Acute on chronic diastolic heart failure, probably precipitated by anemia. Symptoms improving with diuresis with Lasix. Patient has history of RV dysfunction, enlargement and tricuspid regurgitation and had undergone CardioMEMS in the past at [facility]. Check 2-D echo to assess LV/RV systolic function. 2. Slightly elevated troponin level most probably type 2/demand ischemia. He is currently chest pain-free. Patient has history of coronary artery disease and had undergone TTC without stent placement in 2009. Consider ischemic evaluation as an outpatient. 3. Myelodysplastic syndrome, anemia with hemoglobin 7.8, currently receiving blood transfusion. 4. Carotid artery stenosis s/p left CEA with carotid arterial duplex scan this admission showing 70% right ICA stenosis and less than 50% left ICA stenosis. Patient denied any TIA/CVA. Consider outpatient referral to ask for surgery. 5. Paroxysmal atrial fibrillation, presently in sinus rhythm. Patient is probably a poor candidate for long-term anticoagulation. 6. Hyperlipidemia: Continue statin therapy. Thank you for your consultation. AJ HERNANDEZ MD Apr 18, 2019 14:42
[2019-04-18] MEDS ORDERED: POTASSIUM CHLORIDE 20 MEQ TABLET.ER. PO ONE (15:00)
--- NOTE | 2019-04-18 15:03 | CARD ---
MR#: [id number] Date of Study: 04/18/2019 Ordering Physician: BERTRAM MARCELO, Referring Physician: BERTRAM MARCELO, Tech: Sana Madrid APPROVED REPORT EXAM: Two-dimensional and M-mode echocardiogram with Doppler and color Doppler. Other Information Quality : AverageHR: 80bpm INDICATION COPD Palpitations Dyspnea Cardiac Disease: CAD Chest Pain Congestive Heart Failure RISK FACTORS Hypertension 2D DIMENSIONS RVDd3.4 (2.9-3.5cm)Left Atrium(2D)3.1 (1.6-4.0cm) IVSd1.1 (0.7-1.1cm)Aortic Root(2D)3.8 (2.0-3.7cm) LVDd5.0 (3.9-5.9cm)LVOT Diameter2.2 (1.8-2.4cm) PWd0.9 (0.7-1.1cm)LVDs3.3 (2.5-4.0cm) FS (%) 33.4 %SV73.5 ml LVEF(%)61.9 (>50%) Aortic Valve AoV Peak Fabio.197.5cm/sAoV VTI42.9cm AO Peak GR.15.6mmHgLVOT Peak Fabio.144.5cm/s LVOT VTI 28.74cmAO Mean GR.7mmHg JADYN (VMAX)2.42dk6XDW (VTI)2.48cm2 Mitral Valve MV E Ayqmoyjz32.1cm/sMV E Peak Gr.36mmHg MV DECEL [id number] A Zemrphms01.3cm/s E/A Ratio0.9 Pulmonary Valve PV Peak Nprmsnkw74.7cm/sPV Peak Grad.3mmHg Tricuspid Valve TR P. Kyqohawi355pn/sTR Peak Gr.58mmHg Pulmonary Vein S1 Hdwvswei65.1cm/sD2 Zrsyklwl89.7cm/s LEFT VENTRICLE The left ventricle is normal size. There is borderline to mild concentric left ventricular hypertroph y. The left ventricular systolic function is normal and the ejection fraction is within normal range. The Ejection Fraction is 55%. Septal motion suggestive of conduction defect and RV pressure overload . Otherwise, normal LV wall motion. Transmitral Doppler flow pattern is Grade II-pseudonormal filling dynamics. RIGHT VENTRICLE The right ventricle is severely dilated. There is normal right ventricular wall thickness. RV Systoli c function is mildly reduced. ATRIA The left atrium is borderline dilated. The right atrium is moderately dilated. The interatrial septum is intact with no evidence for an atrial septal defect or patent foramen ovale as noted on 2-D or Do ppler imaging. AORTIC VALVE The aortic valve is normal in structure and function. Doppler and Color Flow revealed no significant aortic regurgitation. There is no significant aortic valvular stenosis. MITRAL VALVE The mitral valve is normal in structure and function. There is no evidence of mitral valve prolapse. There is no mitral valve stenosis. Doppler and Color-flow revealed trace mitral regurgitation. TRICUSPID VALVE The tricuspid valve is normal in structure and function. Doppler and Color Flow revealed probable sev ere eccentric tricuspid regurgitation with an estimated PAP of 61 mmHg. There is severe pulmonary hyp ertension. There is no tricuspid valve stenosis. PULMONIC VALVE Doppler and Color Flow revealed mild pulmonic valvular regurgitation. There is no pulmonic valvular s tenosis. GREAT VESSELS The aortic root is mildly enlarged. The ascending aorta is Mildly dilated. The IVC is normal in size and collapses >50% with inspiration. PERICARDIAL EFFUSION There is no evidence of significant pericardial effusion. Critical Notification Critical Value: No <Conclusion> The left ventricular systolic function is normal and the ejection fraction is within normal range. Th e Ejection Fraction is 55%. Septal motion suggestive of conduction defect and RV pressure overload. Otherwise, normal LV wall mot ion. The right ventricle is severely dilated. RV Systolic function is mildly reduced. Doppler and Color Flow revealed probable severe eccentric tricuspid regurgitation with an estimated P AP of 61 mmHg. There is severe pulmonary hypertension. Signed by : Anupam Butler, Electronically Approved : 04/18/2019 15:03:25
[2019-04-18] MEDS ORDERED: HEPARIN PF 500 UNIT/5 ML DISP.SYRIN. ONE (15:46)
[2019-04-18] MEDS: MUPIROCIN 2% TOPICAL OINTMENT 22GM TUBE. TP SCH ×2 (16:49→21:11)
[2019-04-18] MEDS: FUROSEMIDE 40 MG/4 ML VIAL IVP SCH (16:49)
--- NOTE | 2019-04-18 19:48 | HP ---
ADMIT DATE: 04/18/2019 HISTORY OF PRESENT ILLNESS: A 78-year-old male came in through the Emergency Room last night. The patient was feeling extremely tired and run down. The patient has myeloproliferative disorder and has problems with when his hemoglobin drops down below 8, he becomes very weak. He has been seen by Dr. Alexandr horton at , who is the head, adjunct instructor who agrees because of his other multiple medical problems, the patient would require 2 units of packed RBCs. The patient has been wearing oxygen at home and after hydration, his hemoglobin had dropped down to 7.8 and 23. Otherwise, the patient's troponins have been 0.081 and a little bit lower than that. Otherwise, calcium low at 7.2. The patient was admitted for further evaluation, acute on top of chronic diastolic heart failure. BNP of greater than 3000. PAST MEDICAL HISTORY: As stated, extensive dizziness, right carotid endarterectomy, right sided neck numbness secondary to endarterectomy, chronic atrial fibrillation, AAA repair. He is on Plavix, hypercholesterol medications multiple, bronchitis, interstitial lung disease, gallbladder disorder, obstructive bowel disorder, hiatal hernia, abdominal surgery, bowel surgery, obesity, bone cancer, arthritis, orthopedic surgeries, psychiatric problems, depression, myelodysplastic syndrome. VACCINATIONS: Influenza, pneumococcal up-to-date. FAMILY HISTORY: Long history of lung disease, allergies, coronary artery disease, hyperlipidemia, gallstones, COPD, carotid artery stenosis, abdominal aortic aneurysm repair and the like. ALLERGIES: THE PATIENT HAS ALLERGY TO ERYTHROMYCIN, MORPHINE, NAPROXEN AND PYRIDOSTIGMINE. SOCIAL HISTORY: The patient has a history of about [id number] history of smoking, quit several years ago. Denies alcohol or drug use. He is a full code. REVIEW OF SYSTEMS: Generalized weakness. Denies chest pain, does have shortness of breath. Denies abdominal pain. Denies nausea, vomiting, melena, hematochezia, and hematemesis, generalized weakness in his extremities. Neurologically some slight change in mental status, somewhat agitated and irritated overall. PHYSICAL EXAMINATION: GENERAL: The patient otherwise on exam is a very pleasant white male, somewhat frail appearing. VITAL SIGNS: Blood pressure 114/70, respiratory rate 16. His blood pressure had gone down as low as 84/34, respiratory rate 16, pulse 77, afebrile as well. He was given 2 units of packed RBCs as he was symptomatic with hypotension. HEENT: Atraumatic, normocephalic. Eyes: PERRLA without jaundice. Mouth and throat were normal. NECK: Supple, without JVD, carotid bruits or thyromegaly. LUNGS: Diminished throughout, poor movement of air, but basically clear. CARDIOVASCULAR: Regular sinus rhythm, S1, S2, without murmur, rub, thrill, or extra heart sound. ABDOMEN: Soft, nontender. EXTREMITIES: No clubbing, cyanosis or edema. NEUROLOGIC: The patient is alert and oriented, baseline for this individual hemoglobin as noted, went down to 7.8 and 23. LABORATORY DATA: The patient's troponins 0.081. BNP greater than 3000. The patient will be seen by Cardiology. Echocardiogram shows 55% ejection fraction. IMPRESSION: Hypotension secondary to anemia, myelodysplastic syndrome causing anemia, elevated troponin levels, acute on top of chronic diastolic heart failure, mild agitation, hypocalcemia. We will continue to monitor. Two units of packed RBCs. Cardiology to evaluate and make further evaluation at that time. BERTRAM MARCELO MD DR: DONALDO/silvia JOB#: [id number] / [id number]
[2019-04-19] MEDS ORDERED: chlordiazePOXIDE HCL 25 MG CAPSULE PO PRN ×2 (00:45)
[2019-04-19] MEDS: clonazePAM 0.5 MG TABLET PO PRN ×3 (01:39→22:22)
[2019-04-19 06:00] VITALS: BP 100/57
[2019-04-19] MEDS: oxyCODONE/APAP 10/325 1 TAB TABLET PO PRN ×4 (08:20→20:55)
[2019-04-19] MEDS: ASPIRIN 81 MG TAB.CHEW PO SCH (08:20)
[2019-04-19] MEDS: FOLIC ACID 1 MG TABLET PO SCH (08:21)
[2019-04-19] MEDS: CITALOPRAM 20 MG TABLET. PO SCH (08:21)
[2019-04-19] MEDS: POTASSIUM CHLORIDE 10 MEQ TABLET.ER. PO SCH (08:21)
[2019-04-19] MEDS: FUROSEMIDE 40 MG/4 ML VIAL IVP SCH ×2 (08:22→15:55)
[2019-04-19] MEDS ORDERED: MVI, ADULT NO.4 WITH VIT K 10 ML, THIAMINE INJ 100 MG, FOLIC ACID INJ 1 MG in IV NORMAL... IV SCH ×4 (09:00)
[2019-04-19 09:02] LABS: BASO % 0 % (0-3); EOS % 0 % (0-3); HEMATOCRIT 30.9 % (39.0-53.0); HEMOGLOBIN 10.2 g/dL (13.0-17.5); LYMPH # 0.8 x10^3/uL (1.0-4.8); LYMPH % 12 % (24-48); MEAN CORPUSCULAR HEMOGLOBIN 30 pg (25-35); MEAN CORPUSCULAR HGB CONC 33 g/dL (31-37); MEAN CORPUSCULAR VOLUME 92 fL (79-100); MONO # 0.7 x10^3/uL (0.0-1.1); MONO % 10 % (0-9); NEUT # 5.2 x10^3uL (1.8-7.7); NEUT % 77 % (31-73); PLATELET COUNT 114 x10^3/uL (140-400); RED BLOOD COUNT 3.36 x10^6/uL (4.30-5.70); RED CELL DISTRIBUTION WIDTH 16.8 % (11.5-14.5); WHITE BLOOD COUNT 6.8 x10^3/uL (4.0-11.0)
--- NOTE | 2019-04-19 09:20 | RAD ---
Right Leg Venous Doppler Ultrasound, 04/19/2019 Indication: Pain and swelling Comparison: None available Procedure: Real-time grayscale, color flow color duplex Doppler and spectral analysis are obtained with and without compression in the area of the common femoral vein, superficial femoral vein - femoral vein junction, main femoral vein (superficial femoral vein) and popliteal vein. Veins of the proximal calf are also imaged. Findings: There is normal duplex flow, color flow and compressibility of all visualized vein segments. No evidence of deep venous thrombus is present. Impression: Negative venous Doppler of right lower extremity. Electronically signed by: Shelly Kulkarni MD (04/19/2019 9:17 AM) [id number]
[2019-04-19 09:30] LABS: CALCIUM 7.8 mg/dL (8.5-10.1); CREATININE 1.2 mg/dL (0.7-1.3); GFR 58.9; POTASSIUM 4.1 mmol/L (3.5-5.1)
[2019-04-19] MEDS ORDERED: LIDOCAINE 2%/EPI 1:100,000 20 ML VIAL. IJ ONE (09:30)
[2019-04-19 11:00] VITALS: BP 102/48
[2019-04-19] MEDS: DICLOFENAC SODIUM 1% TOPICAL GEL 100GM TUBE. TP SCH ×2 (11:02→22:11)
[2019-04-19] MEDS: MUPIROCIN 2% TOPICAL OINTMENT 22GM TUBE. TP SCH ×2 (11:02→22:11)
--- NOTE | 2019-04-19 13:58 | RAD ---
Exam performed: 3 views right knee and 3 views right elbow. Clinical indication: Swelling Date of Service: 04/19/2019 Comparison: None available 3 views [right] knee findings: There is mild narrowing of the lateral tibiofemoral and patellofemoral joint. The articular margins are smooth. There is no fracture or dislocation. Evidence of calcific loose body or joint effusion is absent. Impression: 1. Degenerative arthrosis. No acute abnormality seen. End impression 3 views right elbow findings: AP, oblique and lateral radiographs of the elbow reveal the osseous structures to be intact and well aligned. The joint space is well-preserved. Evidence of fracture or dislocation is not seen. Impression: 1. No acute findings seen in the right elbow. Electronically signed by: Shelly Kulkarni MD (04/19/2019 1:55 PM) [id number]
--- NOTE | 2019-04-19 14:15 | OP ---
DATE OF SURGERY: INDICATIONS: A 78-year-old male in with swelling to his right elbow, was fairly soft, tender to touch. The patient requested it to be drained and we did an arthrocentesis of the right elbow. DESCRIPTION OF PROCEDURE: After the patient gave his written consent, told the possible complications of infection and drainage and the like, the patient gave his consent. We went ahead with nurse, Ledy, celeste. Sterile preparation was performed over the elbow itself in sterile technique, lidocaine with epinephrine was injected to numb up the entry point. Another sterile 18-gauge needle was introduced into the olecranon area of the right elbow and drawn off approximately 16 mL of a murky-looking fluid that we could not read the newspaper print through and that was deposited in a sterile cup. Culture sensitivities were performed and then that was sent to the lab for further analysis. Culture sensitivities ____. The patient tolerated the procedure well, had good relief actually with the drainage of all the fluid out of the right elbow. It was sterilely dressed. The patient remained in bed where he was in the ICU bed #2. There were no complications. Answered questions for the patient. IMPRESSION: Olecranon bursitis with procedure of drainage of the olecranon bursa and arthrocentesis of that joint. BERTRAM MARCELO MD DR: DONALDO/silvia JOB#: [id number] / [id number]
[2019-04-19 15:22] VITALS: BP 102/48
[2019-04-19 16:22] LABS: BF CLARITY CLOUDY; BF COLOR AMBER; BF SOURCE SYNOVIAL
[2019-04-19 16:23] LABS: BF MON % 28 %; BF PMN % 72 %; BF RBC COUNT 3629; BF WBC COUNT 1158
[2019-04-19 19:37] VITALS: BP 105/67
[2019-04-19] MEDS: methylPREDNISolone SOD SUCC PF 40 MG/ML VIAL. IV SCH (20:55)
[2019-04-19] MEDS: FEBUXOSTAT 40 MG TABLET PO SCH (21:00)
--- NOTE | 2019-04-19 21:49 | PN ---
DATE: SUBJECTIVE: A 78-year-old gentleman in with myelodysplastic disorder. The patient received 2 units packed RBCs; however, this morning, his right knee became increasingly twice the normal size, swelling up, unable to walk. The patient also has swelling to his right elbow and a procedure now was performed on that is aspiration. OBJECTIVE GENERAL: The patient otherwise does not feel good. LUNGS: Diminished throughout, but clear. CARDIOVASCULAR: Regular sinus rhythm, 1/6 systolic ejection murmur. ABDOMEN: Soft, nontender, no rebound or guarding, positive bowel sounds, no hepatosplenomegaly. EXTREMITIES: The patient's right elbow was markedly swollen and erythematous, although after aspiration it went down. The patient in turn the right knee is swollen and tender, hot to touch and will continue to be monitored there. Probably get an x-ray of that. The patient otherwise has no swelling to the lower extremities. NEUROLOGIC: The patient is alert and oriented x 3. IMPRESSION: 1. Myelodysplastic disorder. 2. Anemia secondary to #1. 3. Severe acute flare-up of the right knee. 4. Elevated troponins. Has been reviewed by Cardiology. Make further evaluation on him as indicated per those results. 5. Also hypotension, acute degenerative arthritis, olecranon bursitis, hyperglycemia, elevated troponin levels, thrombocytopenia. PLAN: Continue to monitor the patient accordingly, make further evaluation on him as indicated. BERTRAM MARCELO MD DR: DONALDO/silvia JOB#: [id number] / [id number]
[2019-04-19] MEDS: MIRTAZAPINE 30 MG TABLET PO SCH (22:10)
[2019-04-19 22:57] VITALS: BP 130/64
--- NOTE | 2019-04-20 00:29 | PN ---
DATE: SUBJECTIVE: The patient had some swelling in his right knee as well as his right elbow. We aspirated the right elbow and sent that off to pathology for possible birefringent status to rule out gout look for uric acid crystals, which are anti-birefringent or pseudogout. In any case, the patient is resting fairly comfortably. He has got his blood transfusion. OBJECTIVE: VITAL SIGNS: Blood pressure 102/48, respirations 16, pulse 82, afebrile. GENERAL: The patient otherwise seems to be resting fairly comfortably. Sed rate was only 22. He had elevated cardiac enzymes which are also a problem. His uric acid was elevated at 11.7. Whether or not this is related to the gout or not it is hard to say. Cultures on the situation on his elbow, see procedure note. Like I said, he needs to be further evaluated for crystals. Anyway for now, we will put him on Uloric because of the elevated uric acid and otherwise continue to monitor him. LUNGS: Diminished throughout, but clear. CARDIOVASCULAR: Stable. EXTREMITIES: Right elbow after aspiration looks much better down the right knee is swollen; however, it is not red, it is little bit warm, but not very much. X-rays of the knee demonstrated degenerative arthritic changes. The right elbow did not look like anything in particular. He does not have any tophaceous gouty evidence on his hands or fingers. So in any case, he does have elevated uric acid. We will continue to monitor him accordingly and start him on Uloric, some prednisone. He is on pain medication and we will continue to monitor his progression with these other issues at hand. He is not on ICU today. BERTRAM MARCELO MD DR: DONALDO/silvia JOB#: [id number] / [id number]
[2019-04-20] MEDS: clonazePAM 0.5 MG TABLET PO PRN ×2 (05:12→21:07)
[2019-04-20 05:17] VITALS: BP 103/61
[2019-04-20 06:50] LABS: BASO % 0 % (0-3); EOS % 0 % (0-3); HEMATOCRIT 28.8 % (39.0-53.0); HEMOGLOBIN 9.6 g/dL (13.0-17.5); LYMPH # 0.3 x10^3/uL (1.0-4.8); LYMPH % 4 % (24-48); MEAN CORPUSCULAR HEMOGLOBIN 31 pg (25-35); MEAN CORPUSCULAR HGB CONC 33 g/dL (31-37); MEAN CORPUSCULAR VOLUME 92 fL (79-100); MONO # 0.4 x10^3/uL (0.0-1.1); MONO % 6 % (0-9); NEUT # 5.9 x10^3uL (1.8-7.7); NEUT % 90 % (31-73); PLATELET COUNT 102 x10^3/uL (140-400); RED BLOOD COUNT 3.13 x10^6/uL (4.30-5.70); RED CELL DISTRIBUTION WIDTH 16.4 % (11.5-14.5); WHITE BLOOD COUNT 6.6 x10^3/uL (4.0-11.0)
[2019-04-20 06:58] LABS: CREATININE 1.5 mg/dL (0.7-1.3); GFR 45.5
[2019-04-20] MEDS: POTASSIUM CHLORIDE 10 MEQ TABLET.ER. PO SCH (08:00)
[2019-04-20] MEDS ORDERED: HYDROCORTISONE 10 MG TABLET PO SCH ×2 (08:00→12:00)
[2019-04-20 08:50] LABS: CALCIUM 7.9 mg/dL (8.5-10.1); POTASSIUM 5.1 mmol/L (3.5-5.1)
[2019-04-20] MEDS: FUROSEMIDE 40 MG/4 ML VIAL IVP SCH (09:37)
[2019-04-20] MEDS: methylPREDNISolone SOD SUCC PF 40 MG/ML VIAL. IV SCH ×2 (09:38→21:07)
[2019-04-20] MEDS: FOLIC ACID 1 MG TABLET PO SCH (09:38)
[2019-04-20] MEDS: CITALOPRAM 20 MG TABLET. PO SCH (09:38)
[2019-04-20] MEDS: ASPIRIN 81 MG TAB.CHEW PO SCH (09:38)
[2019-04-20] MEDS: FEBUXOSTAT 40 MG TABLET PO SCH (09:39)
[2019-04-20] MEDS: MUPIROCIN 2% TOPICAL OINTMENT 22GM TUBE. TP SCH ×2 (09:41→21:00)
[2019-04-20] MEDS: DICLOFENAC SODIUM 1% TOPICAL GEL 100GM TUBE. TP SCH ×2 (09:41→21:09)
[2019-04-20 10:42] LABS: % ATYL 3 % (0-0); % BANDS 9 % (0-9); % LYMPHS 5 % (24-48); % MONOS 6 % (0-10); % MYELOS 1 % (0-0); % SEGS 76 % (35-66)
[2019-04-20 10:44] LABS: PLT ESTIMATE DECREASED (ADEQUATE)
[2019-04-20 10:47] LABS: BURR CELLS PRESENT; TEAR DROP CELLS PRESENT
[2019-04-20 11:50] VITALS: BP 95/57
[2019-04-20] MEDS ORDERED: IV 1/2 NORMAL SALINE 1,000 ML IV PRN (12:00)
[2019-04-20] MEDS ORDERED: BISACODYL 10 MG SUPP.RECT PR PRN (12:00)
[2019-04-20] MEDS ORDERED: TRIAMCINOLONE ACETONIDE 40 MG/ML VIAL. INT SYNO ONE (12:15)
[2019-04-20] MEDS ORDERED: LIDOCAINE 2%/EPI 1:100,000 20 ML VIAL. IJ ONE (12:15)
[2019-04-20] MEDS: oxyCODONE/APAP 10/325 1 TAB TABLET PO PRN ×2 (13:16→23:29)
[2019-04-20] MEDS: DOCUSATE SODIUM 100 MG CAPSULE PO SCH ×2 (13:16→21:08)
[2019-04-20 15:44] VITALS: BP 93/49
--- NOTE | 2019-04-20 16:39 | RAD ---
Exam performed: CT abdomen and pelvis without contrast. HISTORY: Abdominal pain and nausea with vomiting. DATE OF SERVICE: 10/02/2019 COMPARISON: CT abdomen and pelvis from 07/13/2013 and 03/07/2010 TECHNIQUE: Contiguous helical acquisitions are obtained through the abdomen and pelvis without IV contrast. Sagittal and coronal reformatted images are obtained and reviewed. FINDINGS: Linear bibasilar opacities likely atelectasis. The visualized heart is normal. Atheromatous coronary calcification. Liver is normal, cyst right hepatic lobe.. Cholecystectomy. Stable Splenomegaly. Pancreas appears unremarkable. Both adrenal glands and bilateral kidneys are normal in size. Probable cyst in the right mid to inferior renal pole is unchanged. Diffuse atheromatous aortic calcification with ectasia. No definite aneurysm. Small and large bowel loops are nondilated and unremarkable. The urinary bladder is distended. Prostate gland, seminal vesicles and rectum appear normal. Bones are grossly normal. IMPRESSION: No acute intra-abdominal or pelvic process seen. Splenomegaly. PQRS Compliance Statement: One or more of the following individualized dose reduction techniques were utilized for this examination: 1. Automated exposure control 2. Adjustment of the mA and/or kV according to patient size 3. Use of iterative reconstruction technique Electronically signed by: Shelly Kulkarni MD (04/20/2019 4:36 PM) [id number]
[2019-04-20 19:35] VITALS: BP 109/68
[2019-04-20] MEDS: MIRTAZAPINE 30 MG TABLET PO SCH (21:07)
[2019-04-20] MEDS: SENNOSIDES 8.6 MG TABLET PO SCH (21:08)
[2019-04-20 21:50] LABS: BACTERIA,URINE FEW /HPF (0-FEW); BILIRUBIN,URINE NEG (NEG); CLARITY,URINE CLEAR; COLOR,URINE AMBER; GLUCOSE,URINE NEG (NEG); NITRITE,URINE NEG (NEG); RBC,URINE OCC /HPF (0-2); SQUAMOUS EPITHELIAL CELL,UR OCC /LPF; UROBILINOGEN,URINE 0.2 mg/dL (0.2 mg/dL); WBC,URINE OCC /HPF (0-4)
[2019-04-20 21:51] LABS: HYALINE CASTS, URINE MOD /HPF
[2019-04-20 22:40] VITALS: BP 103/64
--- NOTE | 2019-04-20 22:58 | OP ---
DATE OF SURGERY: INDICATIONS: A 78-year-old male with severe pain to his right knee. The patient wanted to have it injected with steroid to help relieve the pain and some of the swelling that was occurring to the joint itself. DESCRIPTION OF PROCEDURE: After the patient gave his written consent, told the possible complication, benefit versus risk, I answered questions for him. The patient's area was prepped in the usual sterile fashion and sterile technique, injected with a steroid injection of 40 mg of triamcinolone. The patient tolerated the procedure well. Had some relief to the joint after the infusion of the steroid into the right knee. IMPRESSION: Degenerative arthritis of the right knee with attempted arthrocentesis and injection of steroid into the right knee. BERTRAM MARCELO MD DR: DONALDO/silvia JOB#: [id number] / [id number]
--- NOTE | 2019-04-21 01:26 | PN ---
DATE: 04/20/2019 SUBJECTIVE: The patient is a 78-year-old male with multiple medical problems include myelodysplastic disease, anemia. The patient has been having flareups of severe pain to his right knee and right elbow. He has also been extremely hypotensive as well. The patient had a procedure today. Other than that, the patient is still in severe pain with his knee and unable to bear weight on it. OBJECTIVE: VITAL SIGNS: The patient's blood pressure is 93/49, pulse rate 64, afebrile. GENERAL: The patient is alert and oriented. LUNGS: Diminished, but clear. CARDIOVASCULAR: Regular sinus rhythm. ABDOMEN: Soft, nontender. Right elbow is healing up. Right knee is swollen, tender, and hot to touch. LABORATORY DATA: Hemoglobin 9.6 and 28, white count 6.6, platelets 102. IMPRESSION: Therefore, anemia secondary to myelodysplastic disorder, hypotension, possible gout, hyperuricemia, degenerative arthritis of the right knee, acute renal stasis, and hypocalcemia. PLAN: As above. Continue to monitor the patient accordingly. BERTRAM MARCELO MD DR: DONALDO/silvia JOB#: [id number] / [id number]
[2019-04-21 05:27] VITALS: BP 119/68
[2019-04-21 06:34] LABS: BASO % 0 % (0-3); EOS % 0 % (0-3); HEMATOCRIT 26.1 % (39.0-53.0); HEMOGLOBIN 8.7 g/dL (13.0-17.5); LYMPH # 0.2 x10^3/uL (1.0-4.8); LYMPH % 4 % (24-48); MEAN CORPUSCULAR HEMOGLOBIN 31 pg (25-35); MEAN CORPUSCULAR HGB CONC 33 g/dL (31-37); MEAN CORPUSCULAR VOLUME 93 fL (79-100); MONO # 0.1 x10^3/uL (0.0-1.1); MONO % 3 % (0-9); NEUT # 4.8 x10^3uL (1.8-7.7); NEUT % 93 % (31-73); PLATELET COUNT 96 x10^3/uL (140-400); RED BLOOD COUNT 2.82 x10^6/uL (4.30-5.70); RED CELL DISTRIBUTION WIDTH 16.5 % (11.5-14.5); WHITE BLOOD COUNT 5.1 x10^3/uL (4.0-11.0)
[2019-04-21 06:41] LABS: CALCIUM 8.5 mg/dL (8.5-10.1); CREATININE 1.5 mg/dL (0.7-1.3); GFR 45.5; POTASSIUM 5.1 mmol/L (3.5-5.1)
[2019-04-21] MEDS: SENNOSIDES 8.6 MG TABLET PO SCH (08:26)
[2019-04-21] MEDS: ASPIRIN 81 MG TAB.CHEW PO SCH (08:26)
[2019-04-21] MEDS: CITALOPRAM 20 MG TABLET. PO SCH (08:26)
[2019-04-21] MEDS: FEBUXOSTAT 40 MG TABLET PO SCH (08:27)
[2019-04-21] MEDS: DOCUSATE SODIUM 100 MG CAPSULE PO SCH (08:27)
[2019-04-21] MEDS: FOLIC ACID 1 MG TABLET PO SCH (08:27)
[2019-04-21] MEDS: DICLOFENAC SODIUM 1% TOPICAL GEL 100GM TUBE. TP SCH (08:27)
[2019-04-21] MEDS: methylPREDNISolone SOD SUCC PF 40 MG/ML VIAL. IV SCH (08:27)
[2019-04-21] MEDS: MUPIROCIN 2% TOPICAL OINTMENT 22GM TUBE. TP SCH (08:28)
[2019-04-21 10:39] VITALS: BP 117/65
[2019-04-21] MEDS ORDERED: DICL100G18 TP (12:22)
[2019-04-21] MEDS ORDERED: DOCU-109 PO (12:22)
[2019-04-21] MEDS ORDERED: BISA10SU4 PR (12:22)
[2019-04-21] MEDS ORDERED: PRED-220 PO (12:22)
[2019-04-21] MEDS ORDERED: FEBU40TA PO (12:22)
[2019-04-21] MEDS ORDERED: SENN-87 PO (12:22)
[2019-04-21] MEDS ORDERED: FURO40TA4 PO (12:22)
--- NOTE | 2019-04-21 12:25 | DISCH ---
HOME HEALTH DISCHARGE/MEDS DISCHARGE INFORMATION: Discharge Date: Apr 21, 2019 Final Diagnosis: Problems Medical Problems: (1) Anemia Status: Acute (2) Dyspnea Status: Acute Condition on Discharge: Stable CODE STATUS: Code Status: Full HOME HEALTH: Face to Face: I certify this patient is under my care and that I, or a nurse practitioner or physician's shop assistant working with me, had a face to face encounter that meets the physician face to face encounter requirements with this patient on [Date]. Medical Condition(s): CHF, Other (wound on coccyx area) Snf For: Assess Cardiopulm Status, Assess & Educate Safety, Assess/Skilled Observatio, Medication Management, Pain Management, Wound Care Homebound Status Met By: Unsteady balance w/ amb,, Fatigue w/ amb. POST DISCHARGE ORDERS: Activity Instructions for Disc: Activity as tolerated Weight Bearing Status after Di: No restrictions DIET AFTER DISCHARGE: Regular CERTIFICATION STATEMENT: Certification Statement: Based on the above finding, I certify that this patient is confined to the home and needs intermittent fdc care, physical therapy and/or speech therapy, or continues to need occupational therapy.~ This patient is under my care, and I have initiated the establishment of the plan of care.~ This patient will be followed by myself or a community physician who will periodically review the plan of care. DISCHARGE MEDICATIONS: Home Meds Active Scripts Temazepam (TEMAZEPAM) 30 Mg Capsule, 1 CAP PO QHS, #30 CAP 2 Refills Prov:BERTRAM MARCELO MD 03/14/16 Reported Medications Tiotropium [place] (SPIRIVA) 18 Mcg Cap.w.dev, 18 MCG IH DAILY for asthma 01/18/19 Spironolactone (SPIRONOLACTONE) 50 Mg Tablet, 50 MG PO DAILY for diuretic, TAB 01/18/19 Potassium Chloride (KLOR-CON 10) 10 Meq Tablet.er, 4 TAB PO DAILY for potassium supplement for 30 Days, #120 TAB 0 Refills 01/18/19 Vit A,C & E/Lutein/Minerals (OCUVITE TABLET) 1 Each Tablet, 1 TAB PO DAILY for supplement for 30 Days, #30 TAB 0 Refills 01/18/19 Nitroglycerin (NITROGLYCERIN SubLingual) 0.4 Mg Tab.subl, 0.4 MG SL PRN Q5MIN PRN for CHEST PAIN, BOTTLE 01/18/19 Mirtazapine (MIRTAZAPINE) 30 Mg Tablet, 30 MG PO HS for insomnia, TAB 01/18/19 Loperamide Hcl (LOPERAMIDE) 2 Mg Capsule, 2 MG PO DAILY for diarrhea, CAP Take 2 capsules by mouth initially, followed by 1 capsule by mouth after each loose stool up to a maximum of 8 tablets in 24 hours 01/18/19 Hydrocortisone (CORTEF) 10 Mg Tablet, 10 MG PO HS for rejection, TAB 01/18/19 Hydrocortisone (CORTEF) 20 Mg Tablet, 20 MG PO DAILY for rejection, TAB 01/18/19 Hydrocortisone Acetate (HYDROCORTISONE) 28 Gm Oint...g., 28 GM TP Q6HRS for itching, MISC 01/18/19 Furosemide (FUROSEMIDE) 80 Mg Tablet, 80 MG PO DAILY for CHF, TAB 01/18/19 Folic Acid (FOLIC ACID) 20 Mg Capsule, 1 CAP PO DAILY for suplement for 30 Days, #30 CAP 0 Refills 01/18/19 [Deferasirox] No Conflict Check, PO for 4 tablets in morning juice 01/18/19 [clobetas] No Conflict Check, TOP WEEKLY 01/18/19 Benzonatate (BENZONATATE) 100 Mg Capsule, 100 MG PO Q4HRS PRN for COUGH, CAP 01/18/19 Albuterol Sulfate (ALBUTEROL SULFATE NEB SOLN ) 2.5 Mg/3 Ml Vial.neb, 2.5 MG NEB Q6HRS for short of breath or wheezing, EACH 0 Refills 01/18/19 Oxycodone Hcl/Acetaminophen (OXYCODONE-ACETAMINOPHEN 10-325) 1 Each Tablet, 1 TAB PO PRN Q6HRS PRN for PAIN NEXT DOSE DUE: DATE: TODAY TIME: IF NEEDED 03/13/16 Aspirin (ASPIRIN) 81 Mg Tab.chew, 81 MG PO DAILY for PREVENT BLOOD CLOTS NEXT DOSE DUE: DATE: RESTART TODAY TIME: WHEN YOU GET HOME 12/07/15 Atorvastatin Calcium (ATORVASTATIN CALCIUM) 20 Mg Tablet, 20 MG PO QHS for FOR CHOLESTEROL LAST DOSE GIVEN: DATE: YESTERDAY TIME: AT BEDTIME NEXT DOSE DUE: DATE: TODAY TIME: AT BEDTIME 12/07/15 Ondansetron Hcl (ONDANSETRON HCL) 4 Mg Tablet, 8 MG PO Q8HRS PRN for NAUSEA NEXT DOSE DUE: DATE: TODAY TIME: IF NEEDED 12/07/15 Escitalopram Oxalate (ESCITALOPRAM OXALATE) 20 Mg Tablet, 1 TAB PO DAILY for DEPRESSION NEXT DOSE DUE: DATE: RESTART TODAY TIME: WHEN YOU GET HOME 12/07/15 BERTRAM MARCELO MD Apr 21, 2019 12:25
[2019-04-21] MEDS: clonazePAM 0.5 MG TABLET PO PRN (13:49)
[2019-04-24] MEDS ORDERED: FOLIC ACID 1 MG TABLET PO SCH (09:00)
[2019-04-24] MEDS ORDERED: THIAMINE 100 MG TABLET. PO SCH (09:00)
[2019-04-24] MEDS ORDERED: MULTIVITAMIN with MINERAL TABLET. PO SCH (09:00)
== END 2019-04-21 13:55 | disposition home health service (06) | DRG 557 ==
LOC: ER 00:11 → ICU 01:00 → 1 SOUTH 04-19 19:23
PROVIDERS: ADMIT Family Medicine; ATTEND Family Medicine
PROC: 30233N1 Transfusion of Nonautologous Red Blood Cells into Peripheral Vein, Percutaneous Approach (ICD-10-PCS; 2019-04-18)
PROC: 0R9L3ZX Drainage of Right Elbow Joint, Percutaneous Approach, Diagnostic (ICD-10-PCS; 2019-04-19)
PROC: 3E0U33Z Introduction of Anti-inflammatory into Joints, Percutaneous Approach (ICD-10-PCS; principal; 2019-04-20)
PROC: 3E0U3BZ Introduction of Anesthetic Agent into Joints, Percutaneous Approach (ICD-10-PCS; 2019-04-20)
DX: M70.20 Olecranon bursitis, unspecified elbow (principal); I50.33 Acute on chronic diastolic (congestive) heart failure; E27.40 Unspecified adrenocortical insufficiency; I48.20 Chronic atrial fibrillation, unspecified; I24.8 Other forms of acute ischemic heart disease; J84.9 Interstitial pulmonary disease, unspecified; D46.9 Myelodysplastic syndrome, unspecified; M25.421 Effusion, right elbow; M17.11 Unilateral primary osteoarthritis, right knee; D69.6 Thrombocytopenia, unspecified; E78.00 Pure hypercholesterolemia, unspecified; E78.5 Hyperlipidemia, unspecified; E83.51 Hypocalcemia; F17.210 Nicotine dependence, cigarettes, uncomplicated; I07.1 Rheumatic tricuspid insufficiency; I11.0 Hypertensive heart disease with heart failure; I25.10 Atherosclerotic heart disease of native coronary artery without angina pectoris; I48.0 Paroxysmal atrial fibrillation; I65.29 Occlusion and stenosis of unspecified carotid artery; J44.9 Chronic obstructive pulmonary disease, unspecified; Z79.02 Long term (current) use of antithrombotics/antiplatelets; Z82.49 Family history of ischemic heart disease and other diseases of the circulatory system; Z82.5 Family history of asthma and other chronic lower respiratory diseases; Z86.711 Personal history of pulmonary embolism; Z86.79 Personal history of other diseases of the circulatory system; Z98.61 Coronary angioplasty status; Z99.81 Dependence on supplemental oxygen; E66.9 Obesity, unspecified; F32.9 Major depressive disorder, single episode, unspecified; K44.9 Diaphragmatic hernia without obstruction or gangrene; K82.9 Disease of gallbladder, unspecified; Z23 Encounter for immunization
CPT/HCPCS: 36415; 71045; 73080; 73562; 74176; 80048; 80053; 81001; 82550; 83880; 84132; 84443; 84484; 84550; 85007; 85025; 85651; 86850; 86900; 86901; 86920; 87071; 87075; 89050; 89060; 93005; 93306; 93880; 93971; 96361; 96374; J1200; J1940; J2920; J3301; P9016; 99285-25; J7030

== ENCOUNTER 2019-07-17 19:44 | Emergency (ER) | payer MEDICARE, BC ==
[~2019-07-17] VITALS: Ht 170.2 cm; Wt 73.0 kg
[~2019-07-17 19:44] MED LIST changes: +BISA10SU4 PR; +DICL100G18 TP; +DOCU-109 PO; +FEBU40TA PO; +SENN-182 PO; -SENN-80 PO; +SENN-87 PO
[2019-07-17] MEDS ORDERED: IV RINGERS SOLUTION,LACTATED 1,000 ML IV SCH (19:52)
--- NOTE | 2019-07-17 19:52 | PHYS DOC ---
Past History Past Medical History: A-Fib, Anemia, Arthritis, Bronchitis, CAD, Cancer, CHF, COPD, Depression, Hypertension, Kidney Stones Past Medical History Gout, myelo dysplastic, interstitial lung disease Past Surgical History: Cancer Surgery, Tonsillectomy Past Surgical History Aortic aneurysm repair, ports for IV access right and left subclavian, endarterectomy Smoking: Cigarettes, Less than 1pk/day Alcohol Use: Occasionally Drug Use: None General Adult HPI: HPI: ".. I usually have diarrhea at least once a day... but I ve had over six diarrheas today.. not blood ..just watery... I should not be anemic because I ve had two units already... " Patient is a 79 year old male who presents with above hx and complaints of Diarrhea with Dyspnea. Patient has a history of chronic anemia secondary to myelodysplastic syndrome. Patient normally follows with Dr. Strange at as is oncology/medical record retrieval specialist. Patient also follows with Dr. Nunez at for his cardiac issues. Patient follows Dr. Mora as a primary. Patient denies any intake of bad food. No recent travel outside the [place] area. No specific ill contacts. Patient has other medical history of hypertension, gout, hyperuricemia, degenerative arthritis, bursitis, renal stones, hypocalcemia, coronary artery disease, COPD, coronary artery disease, continued tobacco use, chronic bronchitis, interstitial lung disease, periodic obstructive bowel ileus, hiatal hernia, depression, A. fib and deconditioning, Review of Systems: Review of Systems: Constitutional: Denies fever or chills Eyes: Denies change in visual acuity HENT: Denies nasal congestion or sore throat Respiratory: Complains of dyspnea Cardiovascular: Denies chest pain or edema GI: Denies abdominal pain, nausea, vomiting, bloody stools. Complains of diarrhea : Denies dysuria Musculoskeletal: Denies back pain or joint pain Integument: Denies rash Neurologic: Denies headache, focal weakness or sensory changes Endocrine: Denies polyuria or polydipsia Lymphatic: Denies swollen glands Psychiatric: Denies depression or anxiety Heart Score: HEART Score for Chest Pain: HEART Score for Chest Pain Response (Comments) Value History Moderately Suspicious 1 ECG Nonspecific Repolarizatio 1 Age > 65 2 Risk Factors 1 or 2 Risk Factors 1 Total 5 Risk Factors: Risk Factors: DM, Current or recent (<one month) smoker, HTN, HLP, family history of CAD, obesity. Risk Scores: Score 0 - 3: 2.5% MACE over next 6 weeks - Discharge Home Score 4 - 6: 20.3% MACE over next 6 weeks - Admit for Clinical Observation Score 7 - 10: 72.7% MACE over next 6 weeks - Early Invasive Strategies Family History: Family History: Noncontributory to presentation., There is history of lung disease allergies coronary artery disease hyperlipidemia gallstones COPD carotid artery stenosis aortic aneurysms. Current Medications: Current Meds: See nursing for home meds Allergies: Allergies: Allergies Coded Allergies Type Severity Reaction Last Updated Verified erythromycin base Allergy Intermediate 06/17/13 Yes naproxen Allergy Unknown 01/18/19 Yes pyridostigmine Allergy Unknown 01/18/19 Yes morphine Adverse Reaction Severe Nausea and Vomiting 02/05/14 Yes Physical Exam: PE: Constitutional: , no acute distress, non-toxic appearance. [] HENT: Normocephalic, atraumatic, bilateral external ears normal, oropharynx moist, no oral exudates, nose normal. [] Eyes: PERRLA, EOMI, conjunctiva normal, no discharge. [] Neck: Normal range of motion, no tenderness, supple, no stridor. Carotid scars Cardiovascular:Heart rate regular rhythm, no murmur [, PMI to the left, does have occasional PACs and PVCs on monitor.] Lungs & Thorax: Bilateral breath sounds equal apex with basilar crackles on auscultation []. Has old port site on right. New port site on left. Old surgery scars. Abdomen: Bowel sounds hyperactivity, soft, no tenderness, no masses, no pulsatile masses. Large midline Scar Back: No tenderness, no CVA tenderness. [] Extremities: No tenderness, no cyanosis, no clubbing, ROM intact, no edema. Arthritic changes. Neurologic: Alert and oriented X 3, normal motor function, normal sensory function, no focal deficits noted. [] Psychologic: Affect anxious, judgement normal, mood normal. [] EKG: EKG: My interpretation EKG shows a sinus rhythm at 89 bpm. Does have occasional premature complexes and PAC. RVH, no findings acute STEMI with contra lateral changes [] Radiology/Procedures: Radiology/Procedures: [][address] [address] IMAGING REPORT Signed PATIENT: TERELL CALDWELL ACCOUNT: [id number] : 1940 LOCATION: ER AGE: 79 SEX: M EXAM STATUS: PRE ER ORD. PHYSICIAN: ANIBAL PATEL MD REASON: pain, WEAKNESS, DIFFICULTY BREATHING. PROCEDURE: ACUTE ABDOMEN SERIES Exam: Acute abdominal series INDICATION: Pain TECHNIQUE: Frontal view of chest with upright and supine views of the abdomen Comparisons: CT abdomen pelvis 04/20/2019 FINDINGS: Left anterior chest wall port with catheter tip at the atrial caval junction. The cardiomediastinal silhouette and pulmonary vessels are within normal limits. Strandy opacities at dependent portion the lung bases bilaterally likely atelectasis. Air and stool are noted throughout the colon to level the rectum in a nonobstructive bowel gas pattern. No suspicious masses or calcifications. IMPRESSION: 1. Bibasilar atelectasis. 2. Nonobstructive bowel gas pattern. Electronically signed by: Adebayo Gimenez MD (07/17/2019 9:34 PM) [id number] DICTATED AND SIGNED BY: ADEBAYO GIMENEZ MD DATE: 07/17/192133 CC: BERTRAM MARCELO MD; ANIBAL PATEL MD ~ Course & Med Decision Making: Course & Med Decision Making Pertinent Labs and Imaging studies reviewed. (See chart for details) Patient insistent on discharge in spite of abnormal d-dimer, hypo-magnesium, anemia and thrombocytopenia. Patient exhibits UCAR capacity. States he will follow up with Dr. Marcelo and his Oncologist. Pt. encouraged to return if elected admit and further evaluation. Pt. did not have a stool during ED evaluation. Impression: 1. Complaints of increased diarrhea 2. Complaints of dyspnea 3. Hx chronic anemia some secondary to myelodysplastic anemia 4. Hemoglobin 9.5 5. Thrombocytopenia= 90 6. Elevated d-dimer 1.33 7. Hypo-magnesium 1.7 8. BNP 963 9. Complaints of Diarrhea. [] Dragon Disclaimer: Dragon Disclaimer: This electronic medical record was generated, in whole or in part, using a voice recognition dictation system. Departure Departure: Disposition: 01 HOME/RESIDENCE PRIOR TO ADM Condition: STABLE Referrals: BERTRAM MARCELO MD (PCP) Em[place] Disclaimer This chart was dictated in whole or in part using Voice Recognition software in a busy, high-work load, and often noisy Emergency Department environment. It may contain unintended and wholly unrecognized errors or omissions. ANIBAL PATEL MD Jul 17, 2019 19:52
[2019-07-17 20:59] LABS: BILIRUBIN,URINE NEG (NEG); CLARITY,URINE CLEAR; COLOR,URINE YELLOW; GLUCOSE,URINE NEG (NEG); NITRITE,URINE NEG (NEG); UROBILINOGEN,URINE 0.2 mg/dL (0.2 mg/dL)
[2019-07-17] MEDS ORDERED: MORPHINE SULFATE 10 MG/ML SYRINGE. SQ ONE (21:00)
[2019-07-17 21:01] LABS: BACTERIA,URINE FEW /HPF (0-FEW); RBC,URINE RARE /HPF (0-2); SQUAMOUS EPITHELIAL CELL,UR FEW /LPF; WBC,URINE 0 /HPF (0-4)
[2019-07-17 21:16] LABS: BASO % 1 % (0-3); EOS % 0 % (0-3); HEMATOCRIT 28.8 % (39.0-53.0); LYMPH # 0.6 x10^3/uL (1.0-4.8); LYMPH % 10 % (24-48); MEAN CORPUSCULAR HEMOGLOBIN 30 pg (25-35); MEAN CORPUSCULAR HGB CONC 33 g/dL (31-37); MEAN CORPUSCULAR VOLUME 92 fL (79-100); MONO # 0.6 x10^3/uL (0.0-1.1); MONO % 9 % (0-9); NEUT # 5.2 x10^3uL (1.8-7.7); NEUT % 80 % (31-73); PLATELET COUNT 90 x10^3/uL (140-400); RED BLOOD COUNT 3.14 x10^6/uL (4.30-5.70); RED CELL DISTRIBUTION WIDTH 18.4 % (11.5-14.5); WHITE BLOOD COUNT 6.4 x10^3/uL (4.0-11.0)
[2019-07-17 21:17] LABS: HEMOGLOBIN 9.5 g/dL (13.0-17.5)
[2019-07-17 21:28] LABS: CALCIUM 8.1 mg/dL (8.5-10.1); CREATININE 1.3 mg/dL (0.7-1.3); GFR 53.5; POTASSIUM 3.9 mmol/L (3.5-5.1)
--- NOTE | 2019-07-17 21:37 | RAD ---
Exam: Acute abdominal series INDICATION: Pain TECHNIQUE: Frontal view of chest with upright and supine views of the abdomen Comparisons: CT abdomen pelvis 04/20/2019 FINDINGS: Left anterior chest wall port with catheter tip at the atrial caval junction. The cardiomediastinal silhouette and pulmonary vessels are within normal limits. Strandy opacities at dependent portion the lung bases bilaterally likely atelectasis. Air and stool are noted throughout the colon to level the rectum in a nonobstructive bowel gas pattern. No suspicious masses or calcifications. IMPRESSION: 1. Bibasilar atelectasis. 2. Nonobstructive bowel gas pattern. Electronically signed by: Adebayo Gaming MD (07/17/2019 9:34 PM) [id number]
[2019-07-17 21:41] LABS: DIRECT BILIRUBIN 0.3 mg/dL (0.0-0.2); MAGNESIUM 1.7 mg/dL (1.8-2.4); TOTAL BILIRUBIN 0.8 mg/dL (0.2-1.0); TOTAL PROTEIN 6.5 g/dL (6.4-8.2)
[2019-07-17 23:00] LABS: AMPHETAMINE/METHAMPHETAMINE NEG (NEG); BARBITURATES NEG (NEG); BENZODIAZEPINES NEG (NEG); CANNABINOIDS NEG (NEG); COCAINE NEG (NEG); METHADONE NEG (NEG); OPIATES POS (NEG); PHENCYCLIDINE NEG (NEG)
[2019-07-17 23:15] VITALS: BP 114/54
--- NOTE | 2019-07-18 06:45 | EKG ---
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
[2019-07-18 20:49] LABS: THYROID STIM HORMONE (TSH) 1.885 uIU/mL (0.358-3.740)
== END 2019-07-17 23:18 | disposition home or self-care (01) ==
LOC: ER 19:44
DX: R19.7 Diarrhea, unspecified (principal); R06.00 Dyspnea, unspecified; D69.6 Thrombocytopenia, unspecified; R79.1 Abnormal coagulation profile; E83.42 Hypomagnesemia; I48.91 Unspecified atrial fibrillation; M19.90 Unspecified osteoarthritis, unspecified site; I25.10 Atherosclerotic heart disease of native coronary artery without angina pectoris; I11.0 Hypertensive heart disease with heart failure; I50.9 Heart failure, unspecified; J44.9 Chronic obstructive pulmonary disease, unspecified; F17.210 Nicotine dependence, cigarettes, uncomplicated; Z86.2 Personal history of diseases of the blood and blood-forming organs and certain disorders involving the immune mechanism; Z87.442 Personal history of urinary calculi; Z88.1 Allergy status to other antibiotic agents; Z88.8 Allergy status to other drugs, medicaments and biological substances
CPT/HCPCS: 36415; 74022; 80048; 80061; 80076; 80307; 81001; 82550; 83605; 83690; 83735; 83880; 84443; 84484; 85025; 85045; 85379; 85610; 85730; 86850; 86900; 86901; 87040; 87205; 93005; 96360; 96361; 96372; 99285; J2270; J7120

== ENCOUNTER → 2019-08-29 | Outpatient (CLI) | payer MEDICARE, BC ==
[~2019-08-29] MED LIST changes: +ACET325T9 PO; -OXYC-411 PO; +OXYC1TAB20 PO; -PANT40TA5 PO; +PANT40TA6 PO; +SPIR25TA5 PO
[2019-09-02 16:00] VITALS: BP 99/49
[2019-09-23 14:14] LABS: HEMATOCRIT 27.6 % (39.0-53.0); HEMOGLOBIN 9.2 g/dL (13.0-17.5); MEAN CORPUSCULAR HEMOGLOBIN 32 pg (25-35); MEAN CORPUSCULAR HGB CONC 34 g/dL (31-37); MEAN CORPUSCULAR VOLUME 96 fL (79-100); PLATELET COUNT 117 x10^3/uL (140-400); RED BLOOD COUNT 2.87 x10^6/uL (4.30-5.70); RED CELL DISTRIBUTION WIDTH 26.3 % (11.5-14.5); WHITE BLOOD COUNT 5.9 x10^3/uL (4.0-11.0)
[2019-09-23 14:15] LABS: % SEGS 81 % (35-66); BASO % 1 % (0-3); EOS % 0 % (0-3); LYMPH % 16 % (24-48); MONO # 0.5 x10^3/uL (0.0-1.1); MONO % 8 % (0-9); NEUT # 4.4 x10^3uL (1.8-7.7); NEUT % 75 % (31-73)
[2019-09-23 14:18] LABS: % EOS 1 % (0-5); % LYMPHS 12 % (24-48); % MONOS 6 % (0-10); PLT ESTIMATE DECREASED (ADEQUATE)
[2019-09-23 14:19] LABS: ANISOCYTOSIS MARKED; OVALOCYTES FEW; POLYCHROMASIA SLIGHT; TARGET CELLS OCC; TEAR DROP CELLS OCC
== END | disposition home or self-care (01) ==
LOC: LAB 09:25
PROVIDERS: ATTEND Internal Medicine Hematology & Oncology
DX: E83.111 Hemochromatosis due to repeated red blood cell transfusions (principal); N18.3 Chronic kidney disease, stage 3 (moderate); I50.32 Chronic diastolic (congestive) heart failure; I25.110 Atherosclerotic heart disease of native coronary artery with unstable angina pectoris; D63.0 Anemia in neoplastic disease; I48.0 Paroxysmal atrial fibrillation; D46.Z Other myelodysplastic syndromes
CPT/HCPCS: 36415; 85007; 85025

== ENCOUNTER 2019-09-01 19:52 | Inpatient (IN) | payer MEDICARE, BC ==
[~2019-09-01] VITALS: Ht 170.2 cm; Wt 73.8 kg
[~2019-09-01 19:52] MED LIST changes: -ACET325T9 PO; +OXYC-411 PO; -OXYC1TAB20 PO; +PANT40TA5 PO; -PANT40TA6 PO; -SPIR25TA5 PO
[2019-09-01] MEDS ORDERED: IV NORMAL SALINE 1,000ML 1,000 ML IV ONE (20:15)
[2019-09-01 20:40] LABS: BASO % 0 % (0-3); EOS % 0 % (0-3); HEMATOCRIT 24.2 % (39.0-53.0); HEMOGLOBIN 8.2 g/dL (13.0-17.5); LYMPH # 0.5 x10^3/uL (1.0-4.8); LYMPH % 9 % (24-48); MEAN CORPUSCULAR HEMOGLOBIN 33 pg (25-35); MEAN CORPUSCULAR HGB CONC 34 g/dL (31-37); MEAN CORPUSCULAR VOLUME 97 fL (79-100); MONO # 0.5 x10^3/uL (0.0-1.1); MONO % 9 % (0-9); NEUT # 4.5 x10^3uL (1.8-7.7); NEUT % 81 % (31-73); PLATELET COUNT 113 x10^3/uL (140-400); RED BLOOD COUNT 2.49 x10^6/uL (4.30-5.70); RED CELL DISTRIBUTION WIDTH 25.8 % (11.5-14.5); WHITE BLOOD COUNT 5.6 x10^3/uL (4.0-11.0)
[2019-09-01 20:48] LABS: CREATININE 1.2 mg/dL (0.7-1.3); GFR 58.7; POTASSIUM 4.2 mmol/L (3.5-5.1)
[2019-09-01 20:53] LABS: ALBUMIN 4.1 g/dL (3.4-5.0); ALBUMIN/GLOBULIN RATIO 1.6 (1.0-1.7); TOTAL BILIRUBIN 1.2 mg/dL (0.2-1.0); TOTAL PROTEIN 6.7 g/dL (6.4-8.2)
[2019-09-01] MEDS ORDERED: HYDROmorphone PF 1 MG/ML DISP.SYRIN ONE (20:57)
--- NOTE | 2019-09-01 20:59 | PHYS DOC ---
Past History Past Medical History: A-Fib, Anemia, Arthritis, Bronchitis, CAD, Cancer, CHF, COPD, Depression, Hypertension, Kidney Stones Past Surgical History: Cancer Surgery, Tonsillectomy Smoking: Cigarettes, Less than 1pk/day Alcohol Use: Occasionally Drug Use: None General Adult EDM: Chief Complaint: SHORTNESS OF BREATH HPI: HPI: 79-year-old male returns emergency room with generalized body aches and fatigue. Patient has longstanding difficulty with anemia. See previous notes for more details. Today around 5:00 he started to feel a little lower short of breath and generally crampy and fatigue. He was not doing anything strenuous. He was worried that it could be his hemoglobin dropping again. He has been taking his breathing treatments. He has been using his oxygen at home. He denies fever chills. Review of Systems: Review of Systems: Constitutional: Fatigue. Denies fever or chills. Body aches Eyes: Denies change in visual acuity HENT: Denies nasal congestion or sore throat Respiratory: shortness of breath Cardiovascular: Denies chest pain or edema GI: Denies abdominal pain, nausea, vomiting, bloody stools or diarrhea : Denies dysuria Musculoskeletal: Denies back pain or joint pain Integument: Denies rash Neurologic: Denies headache, focal weakness or sensory changes Endocrine: Denies polyuria or polydipsia Lymphatic: Denies swollen glands Psychiatric: Denies depression or anxiety Heart Score: Risk Factors: Risk Factors: DM, Current or recent (<one month) smoker, HTN, HLP, family history of CAD, obesity. Risk Scores: Score 0 - 3: 2.5% MACE over next 6 weeks - Discharge Home Score 4 - 6: 20.3% MACE over next 6 weeks - Admit for Clinical Observation Score 7 - 10: 72.7% MACE over next 6 weeks - Early Invasive Strategies Current Medications: Current Meds: Current Medications Medications (Trade) Dose Ordered Sig/Rod Start Time Stop Time Status Last Admin Dose Admin Hydromorphone HCl (Dilaudid) 1 mg 1X ONCE 09/01/19 21:00 09/01/19 21:01 UNV Sodium Chloride 1,000 ml @ 1,000 mls/hr 1X ONCE 09/01/19 20:15 09/01/19 21:14 09/01/19 20:28 1,000 MLS/HR Allergies: Allergies: Allergies Coded Allergies Type Severity Reaction Last Updated Verified erythromycin base Allergy Intermediate 06/17/13 Yes naproxen Allergy Intermediate 07/17/19 Yes pyridostigmine Allergy Intermediate 07/17/19 Yes Physical Exam: PE: Constitutional: Well developed, well nourished, no acute distress, non-toxic appearance. [] HENT: Normocephalic, atraumatic, bilateral external ears normal, oropharynx moist, no oral exudates, nose normal. [] Eyes: PERRLA, EOMI, conjunctiva normal, no discharge. [] Neck: Normal range of motion, no tenderness, supple, no stridor. [] Cardiovascular: Heart rate regular rhythm, 4/6 systolic murmur [] Lungs & Thorax: Bilateral breath sounds clear to auscultation [] Abdomen: Bowel sounds normal, soft, no tenderness, no masses, no pulsatile masses. [] Skin: Various stages of bruising on the bilateral arms [] Back: No tenderness, no CVA tenderness. [] Extremities: No tenderness, no cyanosis, no clubbing, ROM intact, no edema. [] Neurologic: Alert and oriented X 3, normal motor function, normal sensory function, no focal deficits noted. [] Psychologic: Affect normal, judgement normal, mood anxious. [] Current Patient Data: Labs: Laboratory Tests Test 09/01/19 20:26 White Blood Count 5.6 x10^3/uL (4.0-11.0) Red Blood Count 2.49 x10^6/uL (4.30-5.70) L Hemoglobin 8.2 g/dL (13.0-17.5) L Hematocrit 24.2 % (39.0-53.0) L Mean Corpuscular Volume 97 fL (79-100) Mean Corpuscular Hemoglobin 33 pg (25-35) Mean Corpuscular Hemoglobin Concent 34 g/dL (31-37) Red Cell Distribution Width 25.8 % (11.5-14.5) H Platelet Count 113 x10^3/uL (140-400) L Neutrophils (%) (Auto) 81 % (31-73) H Lymphocytes (%) (Auto) 9 % (24-48) L Monocytes (%) (Auto) 9 % (0-9) Eosinophils (%) (Auto) 0 % (0-3) Basophils (%) (Auto) 0 % (0-3) Neutrophils # (Auto) 4.5 x10^3uL (1.8-7.7) Lymphocytes # (Auto) 0.5 x10^3/uL (1.0-4.8) L Monocytes # (Auto) 0.5 x10^3/uL (0.0-1.1) Eosinophils # (Auto) 0.0 x10^3/uL (0.0-0.7) Basophils # (Auto) 0.0 x10^3/uL (0.0-0.2) Sodium Level 138 mmol/L (136-145) Potassium Level 4.2 mmol/L (3.5-5.1) Chloride Level 100 mmol/L (98-107) Carbon Dioxide Level 27 mmol/L (21-32) Anion Gap 11 (6-14) Blood Urea Nitrogen 24 mg/dL (8-26) Creatinine 1.2 mg/dL (0.7-1.3) Estimated GFR (Cockcroft-Gault) 58.7 BUN/Creatinine Ratio 20 (6-20) Glucose Level 126 mg/dL (70-99) H Calcium Level 8.0 mg/dL (8.5-10.1) L Total Bilirubin 1.2 mg/dL (0.2-1.0) H Aspartate Amino Transferase (AST) 24 U/L (15-37) Alanine Aminotransferase (ALT) 44 U/L (16-63) Alkaline Phosphatase 63 U/L (46-116) Total Protein 6.7 g/dL (6.4-8.2) Albumin 4.1 g/dL (3.4-5.0) Albumin/Globulin Ratio 1.6 (1.0-1.7) Vital Signs: Vital Signs Date Time Temp Pulse Resp B/P (MAP) Pulse Ox O2 Delivery O2 Flow Rate FiO2 09/01/19 19:52 98.4 82 20 129/70 (89) 98 Nasal Cannula 3.0 EKG: EKG: [] Radiology/Procedures: Radiology/Procedures: [] Course & Med Decision Making: Course & Med Decision Making Pertinent Labs and Imaging studies reviewed. (See chart for details) The patient's hemoglobin is 8.2. He is usually transfuse anything below 8.8. Admit him to the hospital for transfusions. I spoke with Dr. Johns and he has accepted the patient for admission. [] Dragon Disclaimer: Dragon Disclaimer: This electronic medical record was generated, in whole or in part, using a voice recognition dictation system. Departure Departure: Impression: Primary Impression: Anemia Disposition: ADMITTED INPATIENT Admitting Physician: Ishan Johns Condition: STABLE Referrals: BERTRAM MARCELO MD (PCP) Justification of Admission: Justification of Admission: Justification of Admission Dx: Comment: Comments: anemia requiring transfusion per cardiology SHADE DUPREE DO Sep 01, 2019 20:59
[2019-09-01] MEDS ORDERED: HYDROmorphone PF 1 MG/ML DISP.SYRIN IV ONE (21:30)
[2019-09-01] MEDS ORDERED: ONDANSETRON PF 4 MG/2 ML VIAL. IVP PRN (21:30)
--- NOTE | 2019-09-01 21:31 | RAD ---
EXAM: AP View of the chest DATE: 09/01/2019 8:09 PM INDICATION: Shortness of breath, cough COMPARISON: 04/18/2019, 01/18/2019 FINDINGS: Left chest port tip terminates within the distal SVC. The heart is not enlarged. Atherosclerotic calcifications of aorta are seen. Linear opacities right greater than left lung base as well as patchy opacities infrahilar right lung likely consolidation and/or atelectasis/scarring. No lobar consolidation. No pleural effusion or pneumothorax. IMPRESSION: 1. Bibasilar opacities may represent atelectasis or developing consolidative process. Imaging follow-up to resolution is recommended. 2. Left port is in stable position. Electronically signed by: Sandoval Varma MD (09/01/2019 9:28 PM) MIREYA
[2019-09-01 22:20] LABS: ANISOCYTOSIS MOD; HYPOCHROMIA SLIGHT; PLT ESTIMATE DECREASED (ADEQUATE)
[2019-09-01 22:21] LABS: OVALOCYTES FEW
[2019-09-01 22:22] LABS: POLYCHROMASIA SLIGHT; TEAR DROP CELLS OCC
[2019-09-01 22:23] LABS: POIKILOCYTOSIS SLIGHT
[2019-09-01 23:38] VITALS: BP 125/54
[2019-09-02] VITALS (12 sets, daily range): BP systolic 90–116; BP diastolic 37–57
[2019-09-02] MEDS: HYDROmorphone PF 1 MG/ML DISP.SYRIN IV PRN ×4 (01:19→13:40)
[2019-09-02 06:22] LABS: BASO % 0 % (0-3); EOS % 0 % (0-3); HEMATOCRIT 21.5 % (39.0-53.0); HEMOGLOBIN 7.3 g/dL (13.0-17.5); LYMPH # 0.6 x10^3/uL (1.0-4.8); LYMPH % 15 % (24-48); MEAN CORPUSCULAR HEMOGLOBIN 33 pg (25-35); MEAN CORPUSCULAR HGB CONC 34 g/dL (31-37); MEAN CORPUSCULAR VOLUME 97 fL (79-100); MONO # 0.5 x10^3/uL (0.0-1.1); MONO % 11 % (0-9); NEUT # 3.3 x10^3uL (1.8-7.7); NEUT % 74 % (31-73); PLATELET COUNT 104 x10^3/uL (140-400); RED BLOOD COUNT 2.23 x10^6/uL (4.30-5.70); RED CELL DISTRIBUTION WIDTH 26.5 % (11.5-14.5); WHITE BLOOD COUNT 4.4 x10^3/uL (4.0-11.0)
[2019-09-02] MEDS ORDERED: diphenhydrAMINE 50 MG/ML VIAL IVP ONE ×2 (07:00→10:00)
[2019-09-02] MEDS ORDERED: ACETAMINOPHEN 325 MG TABLET PO ONE (07:15)
[2019-09-02] MEDS ORDERED: FURO80TA3 PO (08:49)
[2019-09-02] MEDS ORDERED: SPIR25TA5 PO (08:49)
[2019-09-02] MEDS ORDERED: FURO40TA4 PO (08:49)
[2019-09-02] MEDS ORDERED: LOPERAMIDE 2 MG CAPSULE PO PRN (09:00)
[2019-09-02] MEDS ORDERED: BENZONATATE 100 MG CAPSULE. PO PRN (09:00)
[2019-09-02] MEDS ORDERED: MULTIVITAMIN I-VITE TABLET. PO SCH (09:00)
[2019-09-02] MEDS ORDERED: ASPIRIN CHEWABLE 81 MG TABLET. PO SCH (09:00)
[2019-09-02] MEDS ORDERED: NON FORMULARY ITEM (Tiotropium Bromide (Spiriva) 18 MCG) IH SCH (09:00)
[2019-09-02] MEDS ORDERED: DOCUSATE SODIUM 100 MG CAPSULE PO SCH (09:00)
[2019-09-02] MEDS ORDERED: NITROGLYCERIN SUBLINGUAL 0.4 MG BOTTLE OF 25. SL PRN (09:00)
[2019-09-02] MEDS ORDERED: DICLOFENAC SODIUM 1% TOPICAL GEL 100GM TUBE. TP SCH ×3 (09:00→14:00)
[2019-09-02] MEDS ORDERED: NON FORMULARY ITEM (Folic Acid 1 CAP) PO SCH (09:00)
[2019-09-02] MEDS ORDERED: SENNOSIDES 8.6 MG TABLET PO SCH (09:00)
[2019-09-02] MEDS ORDERED: BISACODYL 10 MG SUPP.RECT PR PRN (09:00)
[2019-09-02] MEDS ORDERED: FUROSEMIDE 80 MG TABLET PO SCH (09:00)
[2019-09-02] MEDS ORDERED: oxyCODONE/APAP 10/325 1 TAB TABLET PO PRN (09:00)
[2019-09-02] MEDS ORDERED: ONDANSETRON ODT 4 MG TAB.RAPDIS PO PRN (09:30)
[2019-09-02] MEDS ORDERED: FUROSEMIDE 20 MG/2 ML VIAL IVP ONE ×2 (10:00→15:45)
--- NOTE | 2019-09-02 10:06 | HP ---
ADMIT DATE: HISTORY OF PRESENT ILLNESS: A 79-year-old male with long history of myelodysplastic disease, came in through the Emergency Room, general body ache, longstanding difficulty with anemia. He has been seen by Dr. Strange, noted program aide group work at , recommended to get a couple units of packed RBCs. The patient was short of breath, generally crampy, fatigue, severe pain throughout his body. The patient was brought in for transfusion as well as continue to monitor his achiness. He was seen through the Emergency Room. The patient denies fever, chills, chest pain, shortness of breath. PAST MEDICAL AND SURGICAL HISTORY: Fairly extensive in the multiplicity of medical problems included endarterectomy of the right carotid on 01/14/2014, chronic headaches, numbness on the right side of the neck, numbness since endarterectomy, cardiac symptoms of AFib, history of aneurysm. He has had AAA surgery repair. He has had cardiac catheterization. He has been on Plavix. Hypercholesterolemia, bronchitis, interstitial lung disease, pneumonias, cholecystectomy, hiatal hernias, abdominal surgery, abdominal aortic aneurysm surgery, bowel surgery. Obesity, bone cancer that is to say his myelodysplastic disease, multiple polyarthritis, psychiatric problems of severe depression. Right knee surgery, arthroscopes, no hardware. Tetanus, influenza and pneumococcal vaccines all up-to-date. Last pneumococcal 2016. FAMILY HISTORY: Mother with lung disease. Father with some form of cancer and that is all that is known. ALLERGIES: He has allergies to ERYTHROMYCIN, NAPROXEN and PYRIDOSTIGMINE. SOCIAL HISTORY: The patient used to be a smoker, quit in the last several years. Denies alcohol or drug use of any sort outside of what is given to him. REVIEW OF SYSTEMS: Just general body achiness. He denies fever, chills, nausea, vomiting, headaches. Denies any significant shortness of breath or orthopnea than usual. No chest pain. Denies abdominal pain, nausea, vomiting, problem with bowels or bladder. Neurologically baseline except he is in pain. PHYSICAL EXAMINATION: GENERAL: The patient is a pleasant gentleman. Complaining of pain 8-9/10. VITAL SIGNS: Blood pressure 108/50, respiratory rate 20, pulse 80. He is afebrile, 2 liters at 98%. HEENT: The patient otherwise head was atraumatic, normocephalic. Eyes: PERRLA without jaundice. The mouth and throat were normal. NECK: Supple, without JVD, carotid bruits. No thyromegaly. Numbness on the right side of his neck and side of his face. LUNGS: The patient's lungs are diminished. Some crackles noted in the bases, very faint. CARDIOVASCULAR: Regular sinus rhythm. ABDOMEN: Soft, diffusely tender, but no rebound or guarding. Positive bowel sounds. EXTREMITIES: No clubbing, cyanosis, or edema. Pulses noted distally, dorsalis pedis, posterior tibialis. NEUROLOGIC: Alert and oriented. Speech is fluent, spontaneous, appropriate. Speech pattern normal. He is just talking about pain, especially in his left AC joint. We will put some Voltaren gel on that. LABORATORY DATA: Otherwise, his labs show a drop in his hemoglobin from 8.2-7.3 in approximately 5 hours. The patient otherwise is alert and oriented and other labs are basically stable. Sodium and potassium 138 and 4.2, BUN and creatinine of 24 and 1.2, glucose 126, total bilirubin 1.2, albumin 4.1. Platelets 104. IMPRESSION: Myelodysplastic disorder with anemia, polyarthritis, chronic pain. He has O positive blood. Hyperbilirubinemia, thrombocytopenia. PLAN: The patient will be admitted, transfused with 2 units packed RBCs given adjusted on his pain medication and make further evaluation per those results. BERTRAM MARCELO MD DR: DONALDO/silvia JOB#: [id number] / [id number]
[2019-09-02] MEDS: IPRATRPIUM/ALBUTEROL 0.5/2.5MG 3 ML NEBU. NEB SCH ×2 (10:35→15:32)
[2019-09-02] MEDS ORDERED: ALBUTEROL SULFATE 2.5 MG/3 ML NEBU. NEB PRN (12:00)
[2019-09-02] MEDS ORDERED: SPIRONOLACTONE 25 MG TABLET PO SCH (12:00)
[2019-09-02] MEDS ORDERED: FUROSEMIDE 40 MG TABLET PO SCH (14:00)
[2019-09-02] MEDS ORDERED: MIRTAZAPINE 30 MG TABLET PO SCH (21:00)
[2019-09-02] MEDS ORDERED: TEMAZEPAM 15 MG CAPSULE PO SCH (21:00)
[2019-09-02] MEDS ORDERED: HYDROCORTISONE 10 MG TABLET PO SCH (21:00)
[2019-09-02] MEDS ORDERED: ATORVASTATIN CALCIUM 20 MG TABLET PO SCH (21:00)
[2019-09-03] MEDS ORDERED: POTASSIUM CHLORIDE 20 MEQ TABLET.ER. PO SCH (08:00)
[2019-09-03] MEDS ORDERED: HYDROCORTISONE 10 MG TABLET PO SCH (08:00)
[2019-09-03] MEDS ORDERED: CITALOPRAM 20 MG TABLET. PO SCH (09:00)
== END 2019-09-02 16:34 | disposition home or self-care (01) | DRG 841 ==
LOC: ER 19:52 → ICU 21:22
PROVIDERS: ADMIT Family Medicine; ATTEND Family Medicine
PROC: 30233N1 Transfusion of Nonautologous Red Blood Cells into Peripheral Vein, Percutaneous Approach (ICD-10-PCS; principal; 2019-09-02)
DX: C94.6 Myelodysplastic disease, not elsewhere classified (principal); R17 Unspecified jaundice; R71.0 Precipitous drop in hematocrit; D69.6 Thrombocytopenia, unspecified; E78.00 Pure hypercholesterolemia, unspecified; G89.29 Other chronic pain; I11.0 Hypertensive heart disease with heart failure; I25.10 Atherosclerotic heart disease of native coronary artery without angina pectoris; I48.91 Unspecified atrial fibrillation; I50.9 Heart failure, unspecified; J44.9 Chronic obstructive pulmonary disease, unspecified; M13.0 Polyarthritis, unspecified; Z87.442 Personal history of urinary calculi; Z87.891 Personal history of nicotine dependence; E66.9 Obesity, unspecified; F32.9 Major depressive disorder, single episode, unspecified; Z79.899 Other long term (current) drug therapy; Z88.8 Allergy status to other drugs, medicaments and biological substances
CPT/HCPCS: 36415; 71045; 80053; 85025; 86850; 86900; 86901; 86920; 94640; 96360; 99285; J1170; J1200; P9016; J7030

== ENCOUNTER 2019-09-26 15:24 | Inpatient (IN) | payer MEDICARE, BC ==
[~2019-09-26] VITALS: Ht 170.2 cm; Wt 71.9 kg
[~2019-09-26 15:24] MED LIST changes: -OXYC-411 PO; +OXYC1TAB20 PO; +SPIR25TA5 PO
--- NOTE | 2019-09-26 15:58 | PHYS DOC ---
Past History Past Medical History: A-Fib, Anemia, Arthritis, Bronchitis, CAD, Cancer, CHF, COPD, Depression, Hypertension, Kidney Stones Past Surgical History: Cancer Surgery, Tonsillectomy Smoking: Cigarettes, Less than 1pk/day Alcohol Use: Occasionally Drug Use: None General Adult EDM: Chief Complaint: SHORTNESS OF BREATH HPI: HPI: 79-year-old male past medical history of "myelodysplasia"-diagnosed 2017, CHF, history of DVT and PEs (formally on Coumadin, no IVC filter), AAA w/repair, presents to the ED with complaints of worsening, exertional shortness of breath, is very concerned he is anemic. Reports KRISTEN has a hospital protocol if his hemoglobin drops below 8.8 he needs a transfusion. Had blood work drawn this morning but states he is confident his hemoglobin has decreased since then. Patient states he was told by his pcp that he cannot get covid because of his blood disorder. States he was started on 3 L nasal cannula du to having a blood clot in his chest, that the oxygen is for his heart. Denies any falls or head trauma. Review of systems: Denies associated fever, chills, hemoptysis, sore throat, cough, leg swelling, n/v/d/c, abdominal or back pain, headache, neck pain, Review of Systems: Review of Systems: Constitutional: Denies fever or chills Eyes: Denies change in visual acuity HENT: Denies nasal congestion or sore throat Respiratory: Denies cough Cardiovascular: Denies chest pain or edema GI: Denies abdominal pain, nausea, vomiting, bloody stools or diarrhea : Denies dysuria Musculoskeletal: Denies back pain or joint pain Integument: Denies rash Neurologic: Denies headache, focal weakness or sensory changes Endocrine: Denies polyuria or polydipsia Lymphatic: Denies swollen glands Psychiatric: Denies depression or anxiety Heart Score: Risk Factors: Risk Factors: DM, Current or recent (<one month) smoker, HTN, HLP, family history of CAD, obesity. Risk Scores: Score 0 - 3: 2.5% MACE over next 6 weeks - Discharge Home Score 4 - 6: 20.3% MACE over next 6 weeks - Admit for Clinical Observation Score 7 - 10: 72.7% MACE over next 6 weeks - Early Invasive Strategies Current Medications: Current Meds: Current Medications Medications (Trade) Dose Ordered Sig/Rod Start Time Stop Time Status Last Admin Dose Admin Iohexol (Omnipaque 350 Mg/ml) 100 ml 1X ONCE 09/26/19 16:00 09/26/19 16:01 Allergies: Allergies: Allergies Coded Allergies Type Severity Reaction Last Updated Verified erythromycin base Allergy Intermediate 06/17/13 Yes naproxen Allergy Intermediate 07/17/19 Yes pyridostigmine Allergy Intermediate 07/17/19 Yes Physical Exam: PE: Constitutional: Well developed, well nourished, no acute distress, non-toxic appearance. [] HENT: Normocephalic, atraumatic, bilateral external ears normal, oropharynx moist, nose normal. [] Eyes: EOMI, conjunctiva normal, no discharge. [] Neck: Normal range of motion, no tenderness, supple, no stridor. [] Cardiovascular:Heart rate regular rhythm, no murmur [] Lungs & Thorax: Bilateral breath sounds intact, some expiratory wheezing, on 3L NC Abdomen: Bowel sounds normal, soft, no tenderness, no masses, no pulsatile masses. [] Skin: Warm, dry, no erythema, no rash. [] Back: No tenderness, no CVA tenderness. [] Extremities: No tenderness, no cyanosis, no clubbing, ROM intact, no edema. [] Neurologic: Alert and oriented X 3, normal motor function, normal sensory function, no focal deficits noted. [] Psychologic: Affect normal, judgement normal, mood normal. [] Current Patient Data: Vital Signs: Vital Signs Date Time Temp Pulse Resp B/P (MAP) Pulse Ox O2 Delivery O2 Flow Rate FiO2 09/26/19 15:43 98.4 102 18 116/51 (72) 93 Nasal Cannula 3.0 EKG: EKG: [] Radiology/Procedures: Radiology/Procedures: IMAGING REPORT Signed PATIENT: TERELL CALDWELL ACCOUNT: [id number] : 1940 LOCATION: ER AGE: 79 SEX: M EXAM STATUS: REG ER ORD. PHYSICIAN: TRUDY VITAL DO REASON: r/o pe, short of air PROCEDURE: CT ANGIOGRAPHY CHEST Exam: CT of chest with contrast INDICATION: Short of air TECHNIQUE: Sequential axial images through the chest obtained following the administration of IV contrast. Sagittal and coronal reformatted images were reconstructed from the axial data and reviewed. Comparisons: Chest x-ray 09/01/2019 FINDINGS: Visualized portions of the thyroid are unremarkable. No enlarged mediastinal lymph nodes are identified. Heart size is normal. No pericardial effusion. Thoracic aorta has a normal course and caliber. Pulmonary artery is not enlarged. No pulmonary embolus identified within the main, lobar or segmental pulmonary arteries. Airways are patent. No consolidation or pneumothorax. Strandy opacities noted at dependent portion lungs likely representing atelectasis. Mild centrilobular emphysematous change in the upper lungs. No pleural effusion or thickening. Spleen is enlarged measuring up to 18 cm in long axis. Otherwise visualized upper abdomen is unremarkable. No suspicious osseous lesions or acute fractures. IMPRESSION: 1. No pulmonary embolus identified within the main, lobar or segmental pulmonary arteries. 2. Strandy opacities at dependent portion lungs likely represent atelectasis. 3. Splenomegaly Exposure: One or more of the following in the visualized dose reduction techniques were utilized for this examination: 1. Automated exposure control 2. Adjustment of the MA and/or KV according to patient size 3. Use of iterative of reconstructive technique Electronically signed by: Adebayo Gimenez MD (09/26/2019 4:30 PM) [id number] DICTATED AND SIGNED BY: ADEBAYO GIMENEZ MD DATE: 09/26/19 1630 CC: BERTRAM MARCELO MD; TRUDY VITAL DO ~ Course & Med Decision Making: Course & Med Decision Making Pertinent Labs and Imaging studies reviewed. (See chart for details) CT of the chest showed no evidence for pulmonary embolus. Hemoglobin went from 9 to 8.4. Reports no sxs of blood loss (no hematuria, hemoptysis, melena, hematochezia, or hematemesis). Labs show chronic thrombocytopenia, roughly at baseline. Creatinine 1.5, has been elevated to this level back in July. Covid test pending. Suspect dypsnea could be related to copd - mild expiratory wheezing. On 3L NC. Steroids/breathing txs started in ed. I discussed patient's care with Dr. Mora who states he would review his chart and consider transfusion. Pt does continue to ask for pain medications, suspect this may play a role in his persistence to be admitted for a transfusion. Will admit to the medical surgical floor for further monitoring. Patient agrees with this plan. I have spoken with the patient and/or caregivers. I have explained the patient's condition, diagnosis and treatment plan based on the information available to me at this time. I have answered the patient's and/or caregivers questions and answered any concerns. The patient and/or caregivers have as good an understanding of the patient's diagnosis, condition and treatment plan as can be expected at this point. The patient has been stabilized within the capability of the emergency department. The patient will be transported for further care and management or will be moved to an observation or inpatient service. I have communicated with the staff or medical practitioner taking over this patient's care. Dragon Disclaimer: Dragon Disclaimer: This electronic medical record was generated, in whole or in part, using a voice recognition dictation system. Departure Departure: Impression: Primary Impression: Dyspnea Additional Impression: COPD (chronic obstructive pulmonary disease) with chronic bronchitis Disposition: ADMITTED INPATIENT Admitting Physician: Bertram Marcelo Condition: STABLE Referrals: BERTRAM MARCELO MD (PCP) Justification of Admission: Justification of Admission: Justification of Admission Dx: Yes Acute COPD Exacerbation: Acute COPD Exacerbation TRUDY VITAL DO Sep 26, 2019 15:58
[2019-09-26] MEDS ORDERED: IOHEXOL 350 MG/ML 100 ML VIAL. IV ONE (16:00)
[2019-09-26] MEDS ORDERED: MORPHINE SULFATE 4 MG/ML DISP.SYRIN. IV ONE ×2 (16:15→18:30)
[2019-09-26 16:19] LABS: BASO % 1 % (0-3); EOS % 0 % (0-3); HEMATOCRIT 24.5 % (39.0-53.0); HEMOGLOBIN 8.4 g/dL (13.0-17.5); LYMPH # 0.4 x10^3/uL (1.0-4.8); LYMPH % 6 % (24-48); MEAN CORPUSCULAR HEMOGLOBIN 33 pg (25-35); MEAN CORPUSCULAR HGB CONC 34 g/dL (31-37); MEAN CORPUSCULAR VOLUME 97 fL (79-100); MONO # 0.4 x10^3/uL (0.0-1.1); MONO % 6 % (0-9); NEUT # 5.6 x10^3uL (1.8-7.7); NEUT % 88 % (31-73); PLATELET COUNT 107 x10^3/uL (140-400); RED BLOOD COUNT 2.53 x10^6/uL (4.30-5.70); RED CELL DISTRIBUTION WIDTH 24.3 % (11.5-14.5); WHITE BLOOD COUNT 6.3 x10^3/uL (4.0-11.0)
[2019-09-26 16:29] LABS: CALCIUM 8.2 mg/dL (8.5-10.1); CREATININE 1.5 mg/dL (0.7-1.3); GFR 45.4; POTASSIUM 4.2 mmol/L (3.5-5.1)
--- NOTE | 2019-09-26 16:33 | RAD ---
Exam: CT of chest with contrast INDICATION: Short of air TECHNIQUE: Sequential axial images through the chest obtained following the administration of IV contrast. Sagittal and coronal reformatted images were reconstructed from the axial data and reviewed. Comparisons: Chest x-ray 09/01/2019 FINDINGS: Visualized portions of the thyroid are unremarkable. No enlarged mediastinal lymph nodes are identified. Heart size is normal. No pericardial effusion. Thoracic aorta has a normal course and caliber. Pulmonary artery is not enlarged. No pulmonary embolus identified within the main, lobar or segmental pulmonary arteries. Airways are patent. No consolidation or pneumothorax. Strandy opacities noted at dependent portion lungs likely representing atelectasis. Mild centrilobular emphysematous change in the upper lungs. No pleural effusion or thickening. Spleen is enlarged measuring up to 18 cm in long axis. Otherwise visualized upper abdomen is unremarkable. No suspicious osseous lesions or acute fractures. IMPRESSION: 1. No pulmonary embolus identified within the main, lobar or segmental pulmonary arteries. 2. Strandy opacities at dependent portion lungs likely represent atelectasis. 3. Splenomegaly Exposure: One or more of the following in the visualized dose reduction techniques were utilized for this examination: 1. Automated exposure control 2. Adjustment of the MA and/or KV according to patient size 3. Use of iterative of reconstructive technique Electronically signed by: Adebayo Gaming MD (09/26/2019 4:30 PM) [id number]
[2019-09-26 16:35] LABS: ALBUMIN 3.8 g/dL (3.4-5.0); ALBUMIN/GLOBULIN RATIO 1.5 (1.0-1.7); MAGNESIUM 1.5 mg/dL (1.8-2.4); TOTAL BILIRUBIN 1.1 mg/dL (0.2-1.0); TOTAL PROTEIN 6.4 g/dL (6.4-8.2)
[2019-09-26 17:07] LABS: % BANDS 7 % (0-9); % LYMPHS 7 % (24-48); % MONOS 1 % (0-10); % MYELOS 2 % (0-0); % SEGS 83 % (35-66)
[2019-09-26 17:08] LABS: PLT ESTIMATE DECREASED (ADEQUATE)
[2019-09-26 17:10] LABS: ANISOCYTOSIS SLIGHT
[2019-09-26] MEDS ORDERED: IPRATRPIUM/ALBUTEROL 0.5/2.5MG 3 ML NEBU. NEB ONE (17:30)
[2019-09-26] MEDS ORDERED: methylPREDNISolone SOD SUCC PF 125 MG/2 ML VIAL. IV ONE (17:30)
[2019-09-26] MEDS ORDERED: oxyCODONE/APAP 10/325 1 TAB TABLET PO PRN (18:45)
[2019-09-26] MEDS ORDERED: BENZONATATE 100 MG CAPSULE. PO PRN (18:45)
[2019-09-26] MEDS ORDERED: LOPERAMIDE 2 MG CAPSULE PO PRN (18:45)
[2019-09-26] MEDS ORDERED: BISACODYL 10 MG SUPP.RECT PR PRN (18:45)
[2019-09-26] MEDS ORDERED: NITROGLYCERIN SUBLINGUAL 0.4 MG BOTTLE OF 25. SL PRN (18:45)
[2019-09-26 19:15] VITALS: BP 106/82
[2019-09-26] MEDS ORDERED: ONDANSETRON ODT 4 MG TAB.RAPDIS PO PRN ×2 (19:15)
--- NOTE | 2019-09-26 19:15 | NUR ---
Pt admitted from ER to ICU bed 4 via gurney, accompanied by EMS and nursing staff. Admission assessment completed. VSS, pt on 3L NC O2 (his normal O2 requirements). Pt here for increased SOA, COPD and weakness. Pt was here earlier today as an outpt for lab draw for a possible blood transfusion. Pt did not meet transfusion requirements per his standing order, so he went home and had increasing SOA and came back in to the ER. Health history and home medications reviewed with pt. Pt was swabbed in ER for Covid, placed in precautions as a PUI. Lives home alone. SCDs for VTE. Dr Escudero called for orders, to transfuse only 1 unit of PRBCs tonight and recheck in the AM. POC reviewed with pt, understanding verbalized. Pt was given written information regarding hospital policies, unit procedures and contact persons. Valuables were checked and left at bedside.
[2019-09-26] MEDS ORDERED: ALBUTEROL SULFATE 8GM INHALER. INH PRN (19:30)
[2019-09-26] MEDS ORDERED: IPRATRPIUM/ALBUTEROL 0.5/2.5MG 3 ML NEBU. NEB SCH (20:00)
[2019-09-26 20:15] VITALS: BP 118/47
[2019-09-26] MEDS ORDERED: diphenhydrAMINE 50 MG/ML VIAL IVP ONE (20:15)
[2019-09-26 21:00] VITALS: BP 113/57
[2019-09-26] MEDS ORDERED: MIRTAZAPINE 30 MG TABLET PO SCH (21:00)
[2019-09-26] MEDS ORDERED: HYDROCORTISONE 10 MG TABLET PO SCH (21:00)
[2019-09-26] MEDS ORDERED: TEMAZEPAM 15 MG CAPSULE PO SCH (21:00)
[2019-09-26] MEDS ORDERED: ATORVASTATIN CALCIUM 20 MG TABLET PO SCH (21:00)
[2019-09-26] MEDS ORDERED: FUROSEMIDE 40 MG TABLET PO SCH (21:00)
[2019-09-26] MEDS ORDERED: FUROSEMIDE 20 MG/2 ML VIAL IVP ONE (21:00)
[2019-09-26] MEDS: ACETAMINOPHEN 325 MG TABLET PO PRN (21:12)
--- NOTE | 2019-09-26 21:15 | NUR ---
Pt premedicated with PO Tylenol and IV Benadryl. Blood verified by 2 RNs at bedside. Blood transfusion started at 5. Tubing primed with normal saline and then primed with blood. Transfusion started at 60mls/hr, pt was monitored closely [id number]. No reaction noted, transfusion rate increased to 120mls/hr. Pt to receive IV Lasix after unit. Recheck in AM.
[2019-09-26 21:30] VITALS: BP 123/49
[2019-09-26] MEDS: DOCUSATE SODIUM 100 MG CAPSULE PO SCH (21:39)
[2019-09-26] MEDS: DICLOFENAC SODIUM 1% TOPICAL GEL 100GM TUBE. TP SCH (21:40)
[2019-09-26] MEDS: SENNOSIDES 8.6 MG TABLET PO SCH (21:41)
[2019-09-26] MEDS: IPRATROPIUM/ALBUTEROL 20/100mcg/INH INHALER. INH SCH (21:41)
[2019-09-26 22:30] VITALS: BP 99/53
[2019-09-26 23:30] VITALS: BP 113/47
[2019-09-27] VITALS (10 sets, daily range): BP systolic 112–118; BP diastolic 40–55
[2019-09-27] MEDS ORDERED: ALBUTEROL SULFATE 2.5 MG/3 ML NEBU. NEB PRN
[2019-09-27 05:43] LABS: BASO % 0 % (0-3); EOS % 0 % (0-3); HEMOGLOBIN 9.2 g/dL (13.0-17.5); LYMPH # 0.3 x10^3/uL (1.0-4.8); LYMPH % 6 % (24-48); MEAN CORPUSCULAR HEMOGLOBIN 33 pg (25-35); MEAN CORPUSCULAR HGB CONC 34 g/dL (31-37); MEAN CORPUSCULAR VOLUME 96 fL (79-100); MONO # 0.1 x10^3/uL (0.0-1.1); MONO % 1 % (0-9); NEUT # 5.4 x10^3uL (1.8-7.7); NEUT % 93 % (31-73); PLATELET COUNT 87 x10^3/uL (140-400); RED BLOOD COUNT 2.82 x10^6/uL (4.30-5.70); RED CELL DISTRIBUTION WIDTH 22.6 % (11.5-14.5); WHITE BLOOD COUNT 5.8 x10^3/uL (4.0-11.0)
[2019-09-27 05:51] LABS: CALCIUM 7.8 mg/dL (8.5-10.1); CREATININE 1.6 mg/dL (0.7-1.3); GFR 42.1; POTASSIUM 5.3 mmol/L (3.5-5.1)
[2019-09-27] MEDS ORDERED: POTASSIUM CHLORIDE 20 MEQ TABLET.ER. PO SCH (08:00)
[2019-09-27] MEDS ORDERED: HYDROCORTISONE 10 MG TABLET PO SCH (08:00)
[2019-09-27] MEDS: IPRATROPIUM/ALBUTEROL 20/100mcg/INH INHALER. INH SCH ×3 (08:00→17:22)
[2019-09-27] MEDS: SENNOSIDES 8.6 MG TABLET PO SCH (08:46)
[2019-09-27] MEDS: DOCUSATE SODIUM 100 MG CAPSULE PO SCH (08:48)
[2019-09-27] MEDS ORDERED: FUROSEMIDE 80 MG TABLET PO SCH (09:00)
[2019-09-27] MEDS ORDERED: CITALOPRAM 20 MG TABLET. PO SCH (09:00)
[2019-09-27] MEDS: DICLOFENAC SODIUM 1% TOPICAL GEL 100GM TUBE. TP SCH (09:00)
[2019-09-27] MEDS ORDERED: ASPIRIN CHEWABLE 81 MG TABLET. PO SCH (09:00)
[2019-09-27] MEDS ORDERED: MAGNESIUM CHLORIDE ER 64 MG TABLET.ER PO SCH (09:00)
[2019-09-27] MEDS ORDERED: FOLIC ACID 1 MG TABLET PO SCH (09:00)
[2019-09-27] MEDS ORDERED: MULTIVITAMIN I-VITE TABLET. PO SCH (09:00)
[2019-09-27] MEDS ORDERED: NON FORMULARY ITEM (Tiotropium Bromide (Spiriva) 18 MCG) IH SCH (09:00)
[2019-09-27] MEDS ORDERED: ACETAMINOPHEN 500 MG TABLET PO PRN (10:30)
[2019-09-27] MEDS ORDERED: diphenhydrAMINE 50 MG/ML VIAL IVP ONE (11:30)
[2019-09-27] MEDS ORDERED: SPIRONOLACTONE 25 MG TABLET PO SCH (12:00)
[2019-09-27] MEDS: ACETAMINOPHEN 325 MG TABLET PO PRN (13:59)
--- NOTE | 2019-09-27 16:13 | NUR ---
Blood transfusion started at 1444. Tubing primed w Normal Saline and then primed with blood. Transfusion started at 60mL/hr then increased to 120 at 1545. Pt port-a-cath already accessed, blood return noted. Pt pretreated with 625mg PO tylenol and 50mg IV benadryl.
[2019-09-27] MEDS ORDERED: HEPARIN PF 500 UNIT/5 ML DISP.SYRIN. IVP ONE (18:00)
[2019-09-27] MEDS ORDERED: FUROSEMIDE 20 MG/2 ML VIAL IVP ONE (18:00)
[2019-09-27 18:33] LABS: HEMATOCRIT 30.5 % (39.0-53.0); HEMOGLOBIN 10.5 g/dL (13.0-17.5)
[2019-09-27] MEDS ORDERED: ACET325T9 PO (18:36)
--- NOTE | 2019-09-27 19:07 | NUR ---
Blood transfusion complete at 1758- 1X dose of 20mg IV lasix given, H&H collected, and IVAD de-accessed with a heparin lock. Pt tolerated well, bandage applied. Pt had all belongings including cell phone, portable oxygen tank, and wallet. Daughter in law was at hospital to pick patient up at 1850, patient ambulated to personal vehicle in stable condition.
--- NOTE | 2019-09-28 21:53 | HP ---
ADMIT DATE: 09/26/2019 HISTORY OF PRESENT ILLNESS: A 79-year-old male came in through the Emergency Room increasingly weak and tired. The patient in turn has a history of a myelodysplastic disorder. He has been seen by Dr. Alexandr horton at [facility] and they recommended if his hemoglobin drops below 8.5, to receive packed RBCs. He stated to the ER doctor that I told him he could not get COVID because of his blood disorder, I never said any such thing and obviously, he is probably a little bit more at risk than anybody because of his decreased immune status because of his myelodysplastic disorder. In any case, the patient with increased shortness of breath and he was on 6 liters per nasal cannula when he came in to maintain proper oxygen saturation. He was admitted for acute exacerbation of respiratory distress as well as his myelodysplastic syndrome. PAST MEDICAL HISTORY: Indicates that of right carotid endarterectomy in 2013. He has had right-sided neck numbness since then. Chronic atrial fibrillation, congestive heart failure, aneurysm AAA repair. He has been on Plavix. COPD, chronic bronchitis, pneumonia, interstitial lung disease, oxygen administration 2-3 liters at all times, cholecystectomy, hiatal hernia, abdominal surgery, bowel surgery, obesity, bone cancer, arthritis; orthopedic surgery, right knee x 2, no hardware; depression. The patient has a smoking history, continues to smoke off and on. Blood disorder, myelodysplastic anemia and does get blood transfusions every 2-3 weeks and has been chelated down at because of accumulation of iron. His immunizations are all up-to-date. FAMILY HISTORY: Significant for heart disease in several relatives as well as cancer in the father and the like. ALLERGIES: ERYTHROMYCIN, NAPROXEN AND PYRIDOSTIGMINE. MEDICATIONS: The patient's home medications include that of Spiriva, albuterol sulfate, atorvastatin 20, nitroglycerin, spironolactone 25 mg, aspirin 81, Voltaren gel, oxycodone 10/325, Lexapro 20, temazepam 30, potassium chloride, furosemide, benzoate, loperamide, docusate sodium, vitamins and alike. SOCIAL HISTORY: As noted, has about [id number] history of smoking. Very rare occasional alcohol use. The patient is a full code. REVIEW OF SYSTEMS: The patient denies any headaches, visual changes, blurred vision, just generalized weakness and inability to breathe well. He denies any fever, chills, nausea, loss of taste, loss of smell. Denies chest pain, abdominal pain. Denies any melena, hematochezia, hematemesis and neurologically baseline for him. He is on continuous oxygen. PHYSICAL EXAMINATION: VITAL SIGNS: The patient's blood pressure 120/50, respiratory rate 16, temperature 97.9. He has been on 3 liters of oxygen. His pulse rate at one time was over 100. HEENT: The patient's head is atraumatic, normocephalic. Eyes: PERRLA without jaundice. Mouth and throat were normal. NECK: Supple. No JVD or thyromegaly. LUNGS: Diminished throughout, poor movement of air, decreased breath sounds. CARDIOVASCULAR: Regular sinus rhythm and tachycardic at times. ABDOMEN: Soft, nontender, no rebound or guarding. Positive bowel sounds. Some mild splenomegaly was noted. Previous surgical scars from previous surgeries noted. EXTREMITIES: No clubbing, cyanosis or edema. NEUROLOGIC: Speech was fluent, spontaneous, appropriate. Cranial nerves 2-12 are grossly intact. LABORATORY DATA: The patient's white count was 6, hemoglobin 8.4 and hematocrit 24, platelets down to 87,000. The patient otherwise chemistries, sodium 136, potassium did go up to 5.3. He was discontinued on his potassium sparing drugs. Coags were negative. The patient's serology was COVID-19 negative. The patient had a CTA of his chest that was basically negative for PE, some atelectasis and he does have splenomegaly as noted. IMPRESSION: 1. Myelodysplastic disorder. 2. Anemia secondary to myelodysplastic disorder. 3. Generalized weakness and fatigue secondary to myelodysplastic disorder. 4. Acute on top of chronic respiratory distress, pulmonary fibrosis. PLAN: The patient will be admitted for further evaluation and blood transfusion, apparently 2 units recommended by with Dr. Strange. I will make further evaluation on him as indicated per those results. BERTRAM MARCELO MD DR: DONALDO/silvia JOB#: [id number] / [id number]
--- NOTE | 2019-10-01 12:32 | NUR ---
IP: notified patient of COVID result.
== END 2019-09-27 18:50 | disposition home or self-care (01) | DRG 812 ==
LOC: ER 15:24 → ICU 18:30
PROVIDERS: ADMIT Family Medicine; ATTEND Family Medicine
PROC: 30233N1 Transfusion of Nonautologous Red Blood Cells into Peripheral Vein, Percutaneous Approach (ICD-10-PCS; principal; 2019-09-26)
DX: D46.9 Myelodysplastic syndrome, unspecified (principal); J98.11 Atelectasis; I48.20 Chronic atrial fibrillation, unspecified; R06.03 Acute respiratory distress; D63.8 Anemia in other chronic diseases classified elsewhere; I11.0 Hypertensive heart disease with heart failure; I25.10 Atherosclerotic heart disease of native coronary artery without angina pectoris; I50.9 Heart failure, unspecified; J44.9 Chronic obstructive pulmonary disease, unspecified; J84.10 Pulmonary fibrosis, unspecified; Z86.718 Personal history of other venous thrombosis and embolism; Z86.79 Personal history of other diseases of the circulatory system; Z87.442 Personal history of urinary calculi; Z87.891 Personal history of nicotine dependence; E66.9 Obesity, unspecified; F32.9 Major depressive disorder, single episode, unspecified; M19.90 Unspecified osteoarthritis, unspecified site; Z20.828 Contact with and (suspected) exposure to other viral communicable diseases; Z88.8 Allergy status to other drugs, medicaments and biological substances; Z79.899 Other long term (current) drug therapy; Z68.24 Body mass index [BMI] 24.0-24.9, adult
CPT/HCPCS: 36415; 71275; 80048; 80053; 83735; 84484; 85007; 85014; 85018; 85025; 85610; 85730; 86850; 86900; 86901; 86920; 94640; 96374; 96375; J1200; J2270; J2930; J7613; P9016; Q9967; 97530; 99285-25; U0003-CS

== ENCOUNTER 2019-10-13 17:36 | Emergency (ER) | payer MEDICARE, BC ==
[~2019-10-13] VITALS: Ht 170.2 cm; Wt 74.0 kg
[~2019-10-13 17:36] MED LIST changes: +ACET325T9 PO; -PANT40TA5 PO; +PANT40TA6 PO
[2019-10-13 17:39] VITALS: BP 99/61
--- NOTE | 2019-10-13 18:17 | PHYS DOC ---
Past History Past Medical History: Cancer Additional Past Medical Histor: leukemia Past Surgical History: Cholecystectomy, Knee Replacement, Other Additional Past Surgical Histo: AAA repair Smoking: Cigarettes, Less than 1pk/day Alcohol Use: Rarely Drug Use: None General Adult EDM: Chief Complaint: SHORTNESS OF BREATH HPI: HPI: 79-year-old male presents with shortness of breath and concern for low hemoglobin. Patient has leukemia and he has standing orders for blood transfusions when his hemoglobin gets below 8.8. Patient has been feeling much more short of breath today. He is on 3 L at baseline. His oxygen saturation is maintaining okay at 3 L, but he feels more winded. When he typically gets this feeling, his hemoglobin is low. He has not had it checked recently and is concerned it is getting low again. He denies fever or chills. He has no other complaints at this time. Review of Systems: Review of Systems: Constitutional: Denies fever or chills Eyes: Denies change in visual acuity HENT: Denies nasal congestion or sore throat Respiratory: shortness of breath Cardiovascular: Denies chest pain or edema GI: Denies abdominal pain, nausea, vomiting, bloody stools or diarrhea : Denies dysuria Musculoskeletal: Denies back pain or joint pain Integument: Denies rash Neurologic: Denies headache, focal weakness or sensory changes Endocrine: Denies polyuria or polydipsia Lymphatic: Denies swollen glands Psychiatric: Denies depression or anxiety Heart Score: Risk Factors: Risk Factors: DM, Current or recent (<one month) smoker, HTN, HLP, family history of CAD, obesity. Risk Scores: Score 0 - 3: 2.5% MACE over next 6 weeks - Discharge Home Score 4 - 6: 20.3% MACE over next 6 weeks - Admit for Clinical Observation Score 7 - 10: 72.7% MACE over next 6 weeks - Early Invasive Strategies Allergies: Allergies: Allergies Coded Allergies Type Severity Reaction Last Updated Verified erythromycin base Allergy Intermediate 06/17/13 Yes naproxen Allergy Intermediate 07/17/19 Yes pyridostigmine Allergy Intermediate 07/17/19 Yes Physical Exam: PE: Constitutional: Well developed, well nourished, no acute distress, non-toxic appearance. [] HENT: Normocephalic, atraumatic, bilateral external ears normal, oropharynx moist, no oral exudates, nose normal. [] Eyes: PERRLA, EOMI, conjunctiva normal, no discharge. [] Neck: Normal range of motion, no tenderness, supple, no stridor. [] Cardiovascular: Heart rate regular rhythm, no murmur [] Lungs & Thorax: Bilateral breath sounds clear to auscultation, on 3 L nasal cannula [] Abdomen: Bowel sounds normal, soft, no tenderness, no masses, no pulsatile masses. [] Skin: Various bruises on different stages of healing. Warm, dry, no erythema, no rash. [] Back: No tenderness, no CVA tenderness. [] Extremities: No tenderness, no cyanosis, no clubbing, ROM intact, no edema. [] Neurologic: Alert and oriented X 3, normal motor function, normal sensory function, no focal deficits noted. [] Psychologic: Affect normal, judgement normal, mood normal. [] Current Patient Data: Vital Signs: Vital Signs Date Time Temp Pulse Resp B/P (MAP) Pulse Ox O2 Delivery O2 Flow Rate FiO2 10/13/19 17:39 98.4 90 20 99/61 (74) 99 Nasal Cannula 3.0 EKG: EKG: [] Radiology/Procedures: Radiology/Procedures: [] Impressions: Chest AP portable at 1843: Reason for examination: Short of breath. Comparison is made to previous study dated 09/01/2019. Port-A-Cath remains present on the left with the tip at the superior vena cava/right atrial junction. The heart size is normal. Mediastinum is unremarkable. Lung solitario continue show a linear density at the right lung base consistent with atelectasis or scarring which is unchanged. No new infiltrates or pleural effusions are seen. No acute bony abnormalities are seen. Impression: Continued presence of linear densities at the right lung base consistent with atelectasis or scarring. No other acute abnormalities evident. Electronically signed by: Nguyen Ray MD (10/13/2019 7:30 PM) [facility] DICTATED AND SIGNED BY: NGUYEN RAY MD DATE: 10/13/191929 CC: SHADE DUPREE DO; BERTRAM MARCELO MD ~ Course & Med Decision Making: Course & Med Decision Making Pertinent Labs and Imaging studies reviewed. (See chart for details) The patient's labs remarkable for hemoglobin of 8.8. His transfusion limit is 8.5. He does not need to be transfused tonight. I spoke with Dr. Mora and he is in agreement with this plan. The patient is also in agreement. He will follow-up his labs tomorrow or the next day at the office. He is stable for discharge at this time. [] Dragon Disclaimer: Dragon Disclaimer: This electronic medical record was generated, in whole or in part, using a voice recognition dictation system. Departure Departure: Impression: Primary Impression: Anemia Qualified Codes: D61.9 - Aplastic anemia, unspecified Additional Impression: Dyspnea Disposition: HOME/RESIDENCE PRIOR TO ADM Condition: STABLE Referrals: BERTRAM MARCELO MD (PCP) Justification of Admission: Justification of Admission: Justification of Admission Dx: N/A Acute COPD Exacerbation: Acute COPD Exacerbation SHADE DUPREE DO Oct 13, 2019 18:17
[2019-10-13] MEDS ORDERED: ONDANSETRON PF 4 MG/2 ML VIAL. IVP ONE (18:30)
[2019-10-13] MEDS ORDERED: MORPHINE SULFATE 2 MG/ML DISP.SYRIN. IV ONE ×2 (18:30→20:15)
[2019-10-13 18:59] LABS: BASO # 0.1 x10^3/uL (0.0-0.2); BASO % 1 % (0-3); EOS % 0 % (0-3); HEMATOCRIT 25.8 % (39.0-53.0); HEMOGLOBIN 8.8 g/dL (13.0-17.5); LYMPH # 0.5 x10^3/uL (1.0-4.8); LYMPH % 8 % (24-48); MEAN CORPUSCULAR HEMOGLOBIN 33 pg (25-35); MEAN CORPUSCULAR HGB CONC 34 g/dL (31-37); MEAN CORPUSCULAR VOLUME 98 fL (79-100); MONO # 0.5 x10^3/uL (0.0-1.1); MONO % 7 % (0-9); NEUT # 5.7 x10^3uL (1.8-7.7); NEUT % 85 % (31-73); PLATELET COUNT 84 x10^3/uL (140-400); RED BLOOD COUNT 2.64 x10^6/uL (4.30-5.70); RED CELL DISTRIBUTION WIDTH 24.2 % (11.5-14.5); WHITE BLOOD COUNT 6.7 x10^3/uL (4.0-11.0)
[2019-10-13 19:07] LABS: CALCIUM 7.8 mg/dL (8.5-10.1); CREATININE 1.2 mg/dL (0.7-1.3); GFR 58.7; POTASSIUM 4.4 mmol/L (3.5-5.1)
[2019-10-13 19:13] LABS: ALBUMIN/GLOBULIN RATIO 1.5 (1.0-1.7); TOTAL PROTEIN 6.6 g/dL (6.4-8.2)
--- NOTE | 2019-10-13 19:33 | RAD ---
Chest AP portable at 1843: Reason for examination: Short of breath. Comparison is made to previous study dated 09/01/2019. Port-A-Cath remains present on the left with the tip at the superior vena cava/right atrial junction. The heart size is normal. Mediastinum is unremarkable. Lung solitario continue show a linear density at the right lung base consistent with atelectasis or scarring which is unchanged. No new infiltrates or pleural effusions are seen. No acute bony abnormalities are seen. Impression: Continued presence of linear densities at the right lung base consistent with atelectasis or scarring. No other acute abnormalities evident. Electronically signed by: Nguyen Robles MD (10/13/2019 7:30 PM) [facility]
[2019-10-13 19:39] LABS: BILIRUBIN,URINE NEG (NEG); CLARITY,URINE CLEAR; COLOR,URINE YELLOW; GLUCOSE,URINE NEG (NEG)
[2019-10-13 19:41] LABS: BACTERIA,URINE 0 /HPF (0-FEW); NITRITE,URINE NEG (NEG); RBC,URINE OCC /HPF (0-2); UROBILINOGEN,URINE 0.2 mg/dL (0.2 mg/dL); WBC,URINE OCC /HPF (0-4)
[2019-10-13 21:15] LABS: ANISOCYTOSIS MOD; PLT ESTIMATE DECREASED (ADEQUATE)
== END 2019-10-13 19:26 | disposition home or self-care (01) ==
LOC: ER 17:36
DX: D61.9 Aplastic anemia, unspecified (principal); R06.02 Shortness of breath; F17.210 Nicotine dependence, cigarettes, uncomplicated
CPT/HCPCS: 36415; 71045; 80053; 81001; 85025; 96374; 96375; 96376; 99284; J2270; J2405

== ENCOUNTER → 2019-10-14 | Outpatient (CLI) | payer MEDICARE, BC ==
[2019-10-14] VITALS (9 sets, daily range): BP systolic 94–124; BP diastolic 46–65
[~2019-10-14] MED LIST changes: +ACETAMINOPHEN 325 MG TABLET PO ONE; +FUROSEMIDE 20 MG/2 ML VIAL IVP ONE; +FUROSEMIDE 20 MG/2 ML VIAL ONE; +HEPARIN PF 500 UNIT/5 ML DISP.SYRIN. IVP ONE; +HEPARIN PF 500 UNIT/5 ML DISP.SYRIN. ONE; +diphenhydrAMINE 50 MG/ML VIAL IVP ONE
[2019-10-14 09:31] LABS: HEMATOCRIT 26.8 % (39.0-53.0); HEMOGLOBIN 9.1 g/dL (13.0-17.5); RED BLOOD COUNT 2.75 x10^6/uL (4.30-5.70); RED CELL DISTRIBUTION WIDTH 23.9 % (11.5-14.5); WHITE BLOOD COUNT 5.6 x10^3/uL (4.0-11.0)
--- NOTE | 2019-10-14 12:00 | NUR ---
Tubing primed with normal saline then blood. Transfusion started at 60 cc and pt monitored closely for 15 minutes. No reaction noted. health technical writer did talk to pathology to approve unit considering hgb 9.1. 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
--- NOTE | 2019-10-14 15:00 | NUR ---
Delay between units r/t pathologist approved one unit not two. Talked with DR Murrell personally and he was on with giving final unit. New Tubing primed with normal saline then blood. Transfusion started at 60 cc and pt monitored closely for 15 minutes. No reaction noted. [facility] GLOBAL CHIEF CREATIVE OFFICER
--- NOTE | 2019-10-14 18:41 | NUR ---
Blood transfusion complete. Pt tolerated well. Gave lasix and flushed wtih 20cc. Pt hep locked. PT left via wc with daughter driving. [place]
== END | disposition home or self-care (01) ==
LOC: OPINF 08:58
PROVIDERS: ATTEND Internal Medicine Hematology & Oncology
DX: D46.9 Myelodysplastic syndrome, unspecified (principal); I13.0 Hypertensive heart and chronic kidney disease with heart failure and stage 1 through stage 4 chronic kidney disease, or unspecified chronic kidney disease; I50.32 Chronic diastolic (congestive) heart failure; N18.3 Chronic kidney disease, stage 3 (moderate); I25.10 Atherosclerotic heart disease of native coronary artery without angina pectoris; I48.20 Chronic atrial fibrillation, unspecified; J44.9 Chronic obstructive pulmonary disease, unspecified; F32.9 Major depressive disorder, single episode, unspecified; G89.29 Other chronic pain; E78.00 Pure hypercholesterolemia, unspecified; M17.11 Unilateral primary osteoarthritis, right knee; E66.9 Obesity, unspecified; Z68.24 Body mass index [BMI] 24.0-24.9, adult; Z79.02 Long term (current) use of antithrombotics/antiplatelets; Z79.899 Other long term (current) drug therapy; Z87.891 Personal history of nicotine dependence
CPT/HCPCS: 36415; 36430; 85027; 86850; 86900; 86901; 86920; 96374; 96375; 96376; J1200; P9016; 36591

== ENCOUNTER 2019-10-28 01:36 | Emergency (ER) | payer MEDICARE, BC ==
[~2019-10-28] VITALS: Ht 170.2 cm; Wt 74.1 kg
[~2019-10-28 01:36] MED LIST changes: -ACETAMINOPHEN 325 MG TABLET PO ONE; -FUROSEMIDE 20 MG/2 ML VIAL IVP ONE; -FUROSEMIDE 20 MG/2 ML VIAL ONE; -HEPARIN PF 500 UNIT/5 ML DISP.SYRIN. IVP ONE; -HEPARIN PF 500 UNIT/5 ML DISP.SYRIN. ONE; -diphenhydrAMINE 50 MG/ML VIAL IVP ONE
--- NOTE | 2019-10-28 02:04 | PHYS DOC ---
Past History Past Medical History: Cancer Additional Past Medical Histor: leukemia Past Surgical History: Cholecystectomy, Knee Replacement, Other Additional Past Surgical Histo: AAA repair Smoking: Cigarettes, Less than 1pk/day Alcohol Use: Rarely Drug Use: None General Adult EDM: Chief Complaint: SHORTNESS OF BREATH HPI: HPI: The history was obtained from the patient. Patient is a 79-year-old male with PMH oxygen dependent COPD, myelodysplasia who presents with a chief complaint of shortness of breath. Patient states he has mild increase in shortness of breath. He states that over he gets this way his hemoglobin is typically low and he needs a transfusion. He states that his transfusion threshold is 8.5 due to his history of coronary artery disease. Denies any cough or fever. Denies any syncope. Denies chest pain. States he will reason is here because he thinks his hemoglobin is low. Notes that he did have an outpatient trial yesterday that was normal. He states he has not had any blood loss. Notes that he does have an appoint with his slot ambassador tomorrow morning at [facility]. States that he typically uses 2 to 3 L of nasal cannula at baseline which is what he is currently on he states. Denies urinary symptoms. Denies abdominal pain. Denies vomiting. Denies falls or trauma. No other complaints. Review of Systems: Review of Systems: Constitutional: Positive for weakness Eyes: Denies change in visual acuity HENT: Denies nasal congestion or sore throat Respiratory: Positive shortness of breath Cardiovascular: Denies chest pain or edema GI: Denies abdominal pain, nausea, vomiting, bloody stools or diarrhea : Denies dysuria Musculoskeletal: Denies back pain or joint pain Integument: Denies rash Neurologic: Denies headache, focal weakness or sensory changes Endocrine: Denies polyuria or polydipsia Lymphatic: Denies swollen glands Psychiatric: Denies depression or anxiety Heart Score: Risk Factors: Risk Factors: DM, Current or recent (<one month) smoker, HTN, HLP, family history of CAD, obesity. Risk Scores: Score 0 - 3: 2.5% MACE over next 6 weeks - Discharge Home Score 4 - 6: 20.3% MACE over next 6 weeks - Admit for Clinical Observation Score 7 - 10: 72.7% MACE over next 6 weeks - Early Invasive Strategies Current Medications: Current Meds: Current Medications Medications (Trade) Dose Ordered Sig/Rod Start Time Stop Time Status Last Admin Dose Admin Oxycodone/ Acetaminophen (Percocet 10/325) 1 tab 1X ONCE 10/28/19 02:00 10/28/19 02:01 UNV Allergies: Allergies: Allergies Coded Allergies Type Severity Reaction Last Updated Verified erythromycin base Allergy Intermediate 10/13/19 Yes naproxen Allergy Intermediate 10/13/19 Yes pyridostigmine Allergy Intermediate 10/13/19 Yes Physical Exam: PE: Constitutional: Well developed, well nourished, no acute distress, non-toxic appearance. [] HENT: Normocephalic, atraumatic, bilateral external ears normal, oropharynx moist, no oral exudates, nose normal. [] Eyes: PERRLA, EOMI, conjunctiva normal, no discharge. [] Neck: Normal range of motion, no tenderness, supple, no stridor. [] Cardiovascular:Heart rate regular rhythm, no murmur [] Lungs & Thorax: Bilateral breath sounds clear to auscultation. 3 L nasal cannula in place. 93%. [] Abdomen:soft, no tenderness, no masses, no pulsatile masses. [] Skin: Warm, dry, no erythema, no rash. [] Back: No tenderness, no CVA tenderness. [] Extremities: No tenderness, no cyanosis, no clubbing, ROM intact, no edema. [] Neurologic: Alert and oriented X 3, normal motor function, normal sensory function, no focal deficits noted. [] Psychologic: Affect normal, judgement normal, mood normal. [] Current Patient Data: Labs: Laboratory Tests Test 10/28/19 02:00 White Blood Count 5.9 x10^3/uL Red Blood Count 2.78 x10^6/uL Hemoglobin 9.2 g/dL Hematocrit 27.0 % Mean Corpuscular Volume 97 fL Mean Corpuscular Hemoglobin 33 pg Mean Corpuscular Hemoglobin Concent 34 g/dL Red Cell Distribution Width 23.0 % Platelet Count 120 x10^3/uL Neutrophils (%) (Auto) 81 % Lymphocytes (%) (Auto) 10 % Monocytes (%) (Auto) 8 % Eosinophils (%) (Auto) 0 % Basophils (%) (Auto) 0 % Neutrophils # (Auto) 4.8 x10^3uL Lymphocytes # (Auto) 0.6 x10^3/uL Monocytes # (Auto) 0.5 x10^3/uL Eosinophils # (Auto) 0.0 x10^3/uL Basophils # (Auto) 0.0 x10^3/uL Platelet Estimate Decreased Anisocytosis Mod Microcytosis Slight Macrocytosis Slight Sodium Level 136 mmol/L Potassium Level 4.0 mmol/L Chloride Level 100 mmol/L Carbon Dioxide Level 26 mmol/L Anion Gap 10 Blood Urea Nitrogen 22 mg/dL Creatinine 1.4 mg/dL Estimated GFR (Cockcroft-Gault) 49.1 Glucose Level 164 mg/dL Calcium Level 7.7 mg/dL Troponin I Quantitative < 0.017 ng/mL Current Medications Medications (Trade) Dose Ordered Sig/Rod Route PRN Reason Start Time Stop Time Status Last Admin Dose Admin Oxycodone/ Acetaminophen (Percocet 10/325) 1 tab 1X ONCE PO 10/28/19 02:15 10/28/19 02:16 DC 10/28/19 02:20 Vital Signs: Vital Signs Date Time Temp Pulse Resp B/P (MAP) Pulse Ox O2 Delivery O2 Flow Rate FiO2 10/28/19 02:53 98.2 93 18 150/75 (100) 97 EKG: EKG: EKG consistent with normal sinus rhythm. [place] normal. Ventricular rate of [address] flattening noted in the lateral precordial leads. No acute ST segment elevation appreciated. [] Radiology/Procedures: Radiology/Procedures: [] Course & Med Decision Making: Course & Med Decision Making Pertinent Labs and Imaging studies reviewed. (See chart for details) [] Patient is a 79-year-old male with a history of myelodysplastic disorder who presents with chief complaint of some generalized weakness and increased shortness of breath. He states that this occurs his hemoglobin is typically low and requires blood transfusion. Initial vital signs are grossly unremarkable. He is on his home oxygen requirement. Hemoglobin today noted to be 9.2. Previous value 9.4. Chemistry panel reveals a mild elevated creatinine at 1.4. Negative troponin. Patient does have history of multiple CAT scan images of his chest. Given he does report some shortness of breath and has a history of cancer d-dimer was obtained. Chest x-ray also obtained. Prior to these results returning patient did request discharge home. He states that his greatest concern was finding out what his hemoglobin level is and since he is not receiving a transfusion you like to be discharged home. He states he does have a follow-up with his slot ambassador later today. Given that I have not seen the d-dimer result or chest x-ray results I told him that our work-up is incomplete and that he would have to leave AGAINST MEDICAL ADVICE given we cannot fully exclude life or limb threatening illness at this time in his work-up. He did express understanding would like to leave AGAINST MEDICAL ADVICE. He does appear to have capacity. He is alert and oriented x3. He does have basic understanding of his healthcare needs and potential consequences including life and limb threat. He states he will follow-up with his slot ambassador later today. Patient will be leaving AGAINST MEDICAL ADVICE due to his work-up not being completed in the emergency department. Emelia Disclaimer: Emelia Disclaimer: This electronic medical record was generated, in whole or in part, using a voice recognition dictation system. Departure Departure: Impression: Primary Impression: Dyspnea Qualified Codes: R06.00 - Dyspnea, unspecified Disposition: 07 AGAINST MEDICAL ADVICE Condition: STABLE Referrals: BERTRAM MARCELO MD (PCP) Justification of Admission: Justification of Admission: Justification of Admission Dx: N/A Acute COPD Exacerbation: Acute COPD Exacerbation TYSHAWN ALFARO DO Oct 28, 2019 02:04
[2019-10-28] MEDS ORDERED: oxyCODONE/APAP 10/325 1 TAB TABLET PO ONE (02:15)
[2019-10-28 02:22] LABS: BASO % 0 % (0-3); EOS % 0 % (0-3); HEMOGLOBIN 9.2 g/dL (13.0-17.5); LYMPH # 0.6 x10^3/uL (1.0-4.8); LYMPH % 10 % (24-48); MEAN CORPUSCULAR HEMOGLOBIN 33 pg (25-35); MEAN CORPUSCULAR HGB CONC 34 g/dL (31-37); MEAN CORPUSCULAR VOLUME 97 fL (79-100); MONO # 0.5 x10^3/uL (0.0-1.1); MONO % 8 % (0-9); NEUT # 4.8 x10^3uL (1.8-7.7); NEUT % 81 % (31-73); PLATELET COUNT 120 x10^3/uL (140-400); RED BLOOD COUNT 2.78 x10^6/uL (4.30-5.70); WHITE BLOOD COUNT 5.9 x10^3/uL (4.0-11.0)
[2019-10-28 02:28] LABS: CALCIUM 7.7 mg/dL (8.5-10.1); CREATININE 1.4 mg/dL (0.7-1.3); GFR 49.1
[2019-10-28 02:40] LABS: ANISOCYTOSIS MOD; MICROCYTOSIS SLIGHT; PLT ESTIMATE DECREASED (ADEQUATE)
[2019-10-28 02:53] VITALS: BP 150/75
--- NOTE | 2019-10-28 03:35 | RAD ---
EXAM: CHEST 1 VIEW History: Shortness of breath COMPARISON: None available. TECHNIQUE: Single portable radiograph of the chest FINDINGS: Mild cardiomegaly. Left-sided Port-A-Cath is identified. Mild bibasilar lung atelectasis or infiltrates. IMPRESSION: Mild bibasilar lung airspace opacities likely atelectasis or infiltrates. Electronically signed by: Mekhi Castañeda MD (10/28/2019 3:32 AM) [id number]
--- NOTE | 2019-10-28 05:11 | EKG ---
[facility] ED [facility] [address] [place] [id number] Test Date: 2019-10-28 Test Time: 01:49:39 Pat Name: TERELL CALDWELL Department: Room: Gender: M Rn Field: : 1940 Requested By: TYSHAWN ALFARO Order Number: [id number] Reading MD: Measurements Intervals Taylor Rate: 91 P: 0 OR: 104 QRS: 11 QRSD: 88 T: 35 QT: 422 QTc: 521 Interpretive Statements SINUS RHYTHM ATRIAL PREMATURE COMPLEX(ES) QRS(T) CONTOUR ABNORMALITY CONSIDER INFERIOR MYOCARDIAL DAMAGE ST & T ABNORMALITY, CONSIDER ANTEROSEPTAL ISCHEMIA OR LEFT VENTRICULAR STRAIN ABNORMAL ECG RI6.02 No previous ECG available for comparison
== END 2019-10-28 03:00 | disposition left against medical advice (07) ==
LOC: ER 01:36
DX: R06.02 Shortness of breath (principal); J44.9 Chronic obstructive pulmonary disease, unspecified; F17.210 Nicotine dependence, cigarettes, uncomplicated; Z99.81 Dependence on supplemental oxygen; Z88.1 Allergy status to other antibiotic agents; Z88.8 Allergy status to other drugs, medicaments and biological substances
CPT/HCPCS: 36415; 71045; 80048; 84484; 85025; 85379; 93005; 99285

== ENCOUNTER 2019-11-15 13:50 | Emergency (ER) | payer MEDICARE, BC ==
--- NOTE | 2019-11-15 15:35 | RAD ---
Exam performed: One view chest. Indication: Reason: chest pain / Spl. Instructions: / History: Date of Service: 11/15/2019 2:54 PM Comparison: None available. Single AP upright portable view chest findings: Cardiomediastinal silhouette is within mildly enlarged, however stable. There is a left-sided Port-A-Cath in place. Linear bibasilar opacities are seen in both lungs similar to prior exam likely atelectasis or scarring.. No acute infiltrates, effusion or pneumothorax is detected. The bony structures are normal. Impression: Stable linear bibasilar opacities likely atelectasis or scarring Electronically signed by: Shelly Kulkarni MD (11/15/2019 3:32 PM) [facility]
[2019-11-15 15:36] LABS: BASO % 1 % (0-3); EOS % 0 % (0-3); HEMATOCRIT 26.6 % (39.0-53.0); HEMOGLOBIN 8.8 g/dL (13.0-17.5); LYMPH # 0.4 x10^3/uL (1.0-4.8); LYMPH % 5 % (24-48); MEAN CORPUSCULAR HEMOGLOBIN 33 pg (25-35); MEAN CORPUSCULAR HGB CONC 33 g/dL (31-37); MEAN CORPUSCULAR VOLUME 100 fL (79-100); MONO # 0.4 x10^3/uL (0.0-1.1); MONO % 6 % (0-9); NEUT % 88 % (31-73); PLATELET COUNT 94 x10^3/uL (140-400); RED BLOOD COUNT 2.67 x10^6/uL (4.30-5.70); RED CELL DISTRIBUTION WIDTH 23.9 % (11.5-14.5); WHITE BLOOD COUNT 6.8 x10^3/uL (4.0-11.0)
[2019-11-15 15:39] LABS: CALCIUM 8.4 mg/dL (8.5-10.1); CREATININE 1.3 mg/dL (0.7-1.3); GFR 53.5; POTASSIUM 4.4 mmol/L (3.5-5.1)
[2019-11-15 15:51] LABS: ALBUMIN 4.2 g/dL (3.4-5.0); ALBUMIN/GLOBULIN RATIO 1.7 (1.0-1.7); TOTAL BILIRUBIN 1.7 mg/dL (0.2-1.0); TOTAL PROTEIN 6.7 g/dL (6.4-8.2)
[2019-11-15] MEDS ORDERED: ACETAMINOPHEN 325 MG TABLET PO PRN (16:15)
[2019-11-15] MEDS ORDERED: diphenhydrAMINE HCL 25 MG CAPSULE PO PRN (16:15)
--- NOTE | 2019-11-15 16:58 | PHYS DOC ---
Past History Past Medical History: No Pertinent History Additional Past Medical Histor: leukemia (CERDIC WRIGHT MD) Past Surgical History: No Surgical History Additional Past Surgical Histo: AAA repair (CEDRIC WRIGHT MD) Smoking: Cigarettes, Less than 1pk/day Alcohol Use: None Drug Use: None (CEDRIC WRIGHT MD) Adult General Chief Complaint Chief Complaint: ABNORMAL LABS HPI HPI Patient is a 79-year-old male with past medical history of MDS, severe congestive heart failure, pulmonary fibrosis who presents to the emergency room feeling short of breath. Patient is chronically on oxygen but has had to increa se his oxygen over the last few hours. He states he gets like this when he needs a blood transfusion. He has a standing order to get 2 units of blood anytime his hemoglobin is under 9.6. Last transfusion was 2 weeks ago. He states this feels exactly like every other time he is required a transfusion. He denies any new symptoms. He has not been having any fevers. He has no ad ditional complaints. (CEDRIC WRIGHT MD) Review of Systems Review of Systems General: Denies fever, chills, sweats, fatigue Eyes: Denies drainage, blurred vision, eye redness HENT: Denies rhinorrhea, sore throat, earache Respiratory: Reports cough, shortness of breath Cardiac: Denies edema, palpitations, chest pain GI: Denies abdominal pain, Nausea, vomiting MSK: Denies back pain, neck pain Skin: Denies rash, jaundice Neuro: Denies headache, dizziness Psychiatric: Denies SI/HI (CEDRIC WRIGHT MD) Current Medications Current Medications Current Medications Medications (Trade) Dose Ordered Sig/Rod Start Time Stop Time Status Last Admin Dose Admin Acetaminophen (Tylenol) 650 mg PRN 1X PRN 11/15/19 16:15 11/16/19 16:14 Diphenhydramine HCl (Benadryl) 50 mg PRN 1X PRN 11/15/19 16:15 11/16/19 16:14 (CEDRIC WRIGHT MD) Allergies Allergies Allergies Coded Allergies Type Severity Reaction Last Updated Verified erythromycin base Allergy Intermediate 10/13/19 Yes naproxen Allergy Intermediate 10/13/19 Yes pyridostigmine Allergy Intermediate 10/13/19 Yes (CEDRIC WRIGHT MD) Physical Exam Physical Exam General: Awake, alert, NAD. Well Nourished, well hydrated. Cooperative HEENT: Atraumatic, EOMI, PERRL, airway patent, moist oral mucosa Neck: Supple, trachea midline Respiratory: CTA bilaterally, normal effort, no wheezing/crackles CV: RRR, no murmur, cap refill <2 GI: Soft, nondistended, nontender, no masses MSK: No obvious deformities Skin: Warm, dry, intact Neuro: A&O x3, speech NL, sensory and motor grossly intact, no focal deficits Psych: Normal affect, normal mood, not suicidal or homicidal (CEDRIC WRIGHT MD) Current Patient Data Lab Results Laboratory Tests Test 11/15/19 14:56 White Blood Count 6.8 x10^3/uL (4.0-11.0) Red Blood Count 2.67 x10^6/uL (4.30-5.70) L Hemoglobin 8.8 g/dL (13.0-17.5) L Hematocrit 26.6 % (39.0-53.0) L Mean Corpuscular Volume 100 fL (79-100) Mean Corpuscular Hemoglobin 33 pg (25-35) Mean Corpuscular Hemoglobin Concent 33 g/dL (31-37) Red Cell Distribution Width 23.9 % (11.5-14.5) H Platelet Count 94 x10^3/uL (140-400) L Neutrophils (%) (Auto) 88 % (31-73) H Lymphocytes (%) (Auto) 5 % (24-48) L Monocytes (%) (Auto) 6 % (0-9) Eosinophils (%) (Auto) 0 % (0-3) Basophils (%) (Auto) 1 % (0-3) Neutrophils # (Auto) 6.0 x10^3uL (1.8-7.7) Lymphocytes # (Auto) 0.4 x10^3/uL (1.0-4.8) L Monocytes # (Auto) 0.4 x10^3/uL (0.0-1.1) Eosinophils # (Auto) 0.0 x10^3/uL (0.0-0.7) Basophils # (Auto) 0.0 x10^3/uL (0.0-0.2) Platelet Estimate Pending Sodium Level 133 mmol/L (136-145) L Potassium Level 4.4 mmol/L (3.5-5.1) Chloride Level 97 mmol/L (98-107) L Carbon Dioxide Level 25 mmol/L (21-32) Anion Gap 11 (6-14) Blood Urea Nitrogen 34 mg/dL (8-26) H Creatinine 1.3 mg/dL (0.7-1.3) Estimated GFR (Cockcroft-Gault) 53.5 BUN/Creatinine Ratio 26 (6-20) H Glucose Level 162 mg/dL (70-99) H Calcium Level 8.4 mg/dL (8.5-10.1) L Total Bilirubin 1.7 mg/dL (0.2-1.0) H Aspartate Amino Transferase (AST) 33 U/L (15-37) Alanine Aminotransferase (ALT) 56 U/L (16-63) Alkaline Phosphatase 75 U/L (46-116) Troponin I Quantitative 0.020 ng/mL (0-0.055) NT-Zse-H-Type Natriuretic Peptide 602 pg/mL (0-449) H Total Protein 6.7 g/dL (6.4-8.2) Albumin 4.2 g/dL (3.4-5.0) Albumin/Globulin Ratio 1.7 (1.0-1.7) (CEDRIC WRIGHT MD) EKG EKG [] (CEDRIC WRIGHT MD) Radiology/Procedures Radiology/Procedures [] (CEDRIC WRIGHT MD) Course & Med Decision Making Course & Med Decision Making Pertinent Labs and Imaging studies reviewed. (See chart for details) Patient is a 79-year-old male who presents to the emergency room with shortness of breath. He believes it is because he is in need of a blood transfusion. It feels very similar to the previous episodes. Hemoglobin at this time is under 9.6. Given his standing orders from oncology will order a blood transfusion at this time there are no beds in the hospital and patient can be discharged after the transfusion so will go ahead and transfusion here in the emergency room and plan to discharge him after transfusion. Patient discussed with Dr. Ortiz the oncoming physician who will assume care (CEDRIC WRIGHT MD) Course & Med Decision Making See Dr. Wright chart for detail. Pt. completed his transfusions with out complication. Did get lasix and fentanyl prior to discharge home. Pt. keep follow up with primary and oncology. Impression: 1. Anemia 2. Hx. MDS 3. Hx. CHF (ANIBAL ORTIZ MD) Dragon Disclaimer Dragon Disclaimer This electronic medical record was generated, in whole or in part, using a voice recognition dictation system. (CEDRIC WRIGHT MD) Departure Departure: Impression: Primary Impression: Anemia Additional Impression: CHF (congestive heart failure) Disposition: HOME/RESIDENCE PRIOR TO ADM Condition: STABLE Referrals: BERTRAM MARCELO MD (PCP) Problem Qualifiers CEDRIC WRIGHT MD Nov 15, 2019 16:58 ANIBAL ORTIZ MD Nov 16, 2019 09:27
[2019-11-15 17:08] LABS: PLT ESTIMATE DECREASED (ADEQUATE)
[2019-11-15 17:09] LABS: ANISOCYTOSIS MOD; POIKILOCYTOSIS SLIGHT
[2019-11-15] MEDS ORDERED: diphenhydrAMINE 50 MG/ML VIAL ONE (18:02)
[2019-11-15 18:28] VITALS: BP 148/77
[2019-11-15 18:45] VITALS: BP 121/59
[2019-11-15 19:45] VITALS: BP 105/47
[2019-11-15 20:45] VITALS: BP 118/59
[2019-11-15] MEDS: FUROSEMIDE 40 MG/4 ML VIAL IVP PRN (21:49)
[2019-11-15 23:10] VITALS: BP 125/50
[2019-11-15 23:35] VITALS: BP 133/75
[2019-11-16 00:40] VITALS: BP 131/56
[2019-11-16 01:37] VITALS: BP 149/98
[2019-11-16 01:42] VITALS: BP 149/98
[2019-11-16] MEDS ORDERED: HEPARIN PF 500 UNIT/5 ML DISP.SYRIN. ONE (01:53)
[2019-11-16] MEDS: FUROSEMIDE 40 MG/4 ML VIAL IVP PRN (01:57)
== END 2019-11-16 02:08 | disposition home or self-care (01) ==
LOC: ER 13:50
DX: D64.9 Anemia, unspecified (principal); I50.9 Heart failure, unspecified; F17.210 Nicotine dependence, cigarettes, uncomplicated; Z99.81 Dependence on supplemental oxygen; Z88.8 Allergy status to other drugs, medicaments and biological substances
CPT/HCPCS: 36415; 36430; 71045; 80053; 83880; 84484; 85025; 86850; 86900; 86901; 86920; 96374; 96375; 96376; 99285; J1940; J3010; P9016; Q0163

== ENCOUNTER 2019-12-13 22:26 | Emergency (ER) | payer MEDICARE, BC ==
[~2019-12-13] VITALS: Ht 170.2 cm; Wt 74.1 kg
[~2019-12-13 22:26] MED LIST changes: +AMLO-186 PO; -AMLO5TAB10 PO
--- NOTE | 2019-12-13 22:30 | PHYS DOC ---
Past History Past Medical History: No Pertinent History, Anemia, Anxiety, CAD, Cancer, CHF, COPD, Other Additional Past Medical Histor: leukemia Past Medical History Myelodysplastic disorder Past Surgical History: Angioplasty, Knee Replacement, Other Additional Past Surgical Histo: AAA repair, endarterectomy Smoking: Cigarettes, Less than 1pk/day Alcohol Use: None Drug Use: None General Adult HPI: HPI: ".. I am pretty sure.. my Hgb is down in the 8 range.. because I am short of breath.. and I was at 9 when we last checked...".. " When in gets down in the 8 range.. and start getting really short of breath.. and start getting angina chest pain... " Patient is a 79 year old male who presents with above hx and complaints increase dyspnea, chest discomfort, and generalized weakness. 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 Patient follows at oncology Dr. Strange. Pt. has hx of CHF and CADz.. Pt. is chronically oxygen dependent at 2 Lit. nasal cannula to maintain oxygen saturation. Patient has history of multiple transfusions secondary to his myelodysplastic disorder. Patient follows with Dr. Escudero as a primary. Patient denies any recent travel outside the [place] area. No specific ill contacts. Patient has past history of [id number] smoking history. Patient has past history of TIAs, CVAs, A. fib, CHF, aortic abdomen aneurysm repair, chronic bronchitis, depression, anxiety, pneumonia, interstitial lung disease, O2 to dependent, chronically elevated D-dimers, hiatal hernia, obesity, arthritis, migraines and has required chelated due to accumulation iron. Patient is also had history of cholecystectomy, bowel surgery, orthopedic surgery right knee x2, carotid endarterectomy. Review of Systems: Review of Systems: Constitutional: Denies fever or chills Eyes: Denies change in visual acuity HENT: Denies nasal congestion or sore throat Respiratory: Complains of increased shortness of breath Cardiovascular: Complains of chest discomfort chest pain and ankle edema GI: Denies abdominal pain, nausea, vomiting, bloody stools or diarrhea : Denies dysuria Musculoskeletal: Complains of generalized weakness and fatigue Integument: Denies rash Neurologic: Denies headache, focal weakness or sensory changes Endocrine: Denies polyuria or polydipsia Lymphatic: Denies swollen glands Psychiatric: Denies depression or anxiety Family History: Family History: Family history of anemia dysplastic disorders, cancer, coronary artery disease Current Medications: Current Meds: See nursing for home meds Allergies: Allergies: Allergies Coded Allergies Type Severity Reaction Last Updated Verified erythromycin base Allergy Intermediate 10/13/19 Yes naproxen Allergy Intermediate 10/13/19 Yes pyridostigmine Allergy Intermediate 10/13/19 Yes Physical Exam: PE: Constitutional: In moderate acute distress, non-toxic appearance. [] HENT: Normocephalic, atraumatic, bilateral external ears normal, oropharynx moist, no oral exudates, nose normal. [] Eyes: PERRLA, EOMI, conjunctiva pale, no discharge. [] Neck: Normal range of motion, no tenderness, supple, no stridor. Endarterectomy scar. No bruits Cardiovascular:Heart rate regular rhythm, no murmur, PMI to left Lungs & Thorax: Bilateral breath sounds equal at apex of basilar crackles on auscultation. Does have scattered wheezes. Abdomen: Bowel sounds normal, soft, no tenderness, no masses, no pulsatile masses. Midline abdomen aortic aneurysm repair. Skin: Warm, dry, no erythema, venous stasis changes in legs Back: No tenderness, no CVA tenderness. [] Extremities: No tenderness, no cyanosis, no clubbing, ROM intact, ankle edema. Arthritic change Neurologic: Alert and oriented X 3, moves all extremities on request,, has distal sensory sensory function, reports no new focal deficits. Psychologic: Affect anxious, judgement normal, mood normal. [] EKG: EKG: My interpretation EKG shows a sinus rhythm at 88 bpm. There is some nonspecific T and ST changes. But no findings of acute STEMI with contralateral changes. Similar to prior EKGs on file. [] Radiology/Procedures: Radiology/Procedures: [] Heart Score: HEART Score for Chest Pain: HEART Score for Chest Pain Response (Comments) Value History Moderately Suspicious 1 ECG Nonspecific Repolarizatio 1 Age > 65 2 Risk Factors 1 or 2 Risk Factors 1 Troponin < Normal Limit 0 Total 5 Risk Factors: Risk Factors: DM, Current or recent (<one month) smoker, HTN, HLP, family h istory of CAD, obesity. Risk Scores: Score 0 - 3: 2.5% MACE over next 6 weeks - Discharge Home Score 4 - 6: 20.3% MACE over next 6 weeks - Admit for Clinical Observation Score 7 - 10: 72.7% MACE over next 6 weeks - Early Invasive Strategies Course & Med Decision Making: Course & Med Decision Making Pertinent Labs and Imaging studies reviewed. (See chart for details) Patient be transfused 2 unit of PRBC with his protocol by the Lasix 20 with each unit, Benadryl 50 IV and Tylenol 1 g. Plan admission to hospital for complete type and crossmatch and transfusion. However no beds available due to nursing shortage. Will transfuse 2 units in the emergency department and discharge home if no acute complications. Pt. Son in law- Agustín Waterford tray drier. Calls to [facility]- no response. Pt. demands discharge after completion of transfusion to 2 unit of PRBCs' Impression: 1. Myelodysplastic disorder 2. 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 History of coronary artery disease and angina 4. Chronic respiratory distress secondary to pulmonary fibrosis 5. Chronic hypoxia oxygen dependent 2 L 6. Diabetes-glucose 138 7. Elevated BUN and creatinine 1.7-renal insufficiency 8. CHF-BNP 1047 9. Elevated D-dimer 1.49 [] Emelia Disclaimer: Emelia Disclaimer: This electronic medical record was generated, in whole or in part, using a voice recognition dictation system. Departure Departure: Disposition: 01 DC HOME SELF CARE/HOMELESS Condition: STABLE Referrals: BERTRAM ESCUDERO MD (PCP) Emelia Disclaimer This chart was dictated in whole or in part using Voice Recognition software in a busy, high-work load, and often noisy Emergency Department environment. It may contain unintended and wholly unrecognized errors or omissions. ANIBAL PATEL MD Dec 13, 2019 22:30
[2019-12-13] MEDS ORDERED: IV NORMAL SALINE 1,000ML 1,000 ML IV SCH (22:45)
[2019-12-13] MEDS ORDERED: FUROSEMIDE 40 MG/4 ML VIAL IVP ONE (23:00)
[2019-12-13] MEDS ORDERED: diphenhydrAMINE 50 MG/ML VIAL IVP ONE (23:00)
[2019-12-13] MEDS ORDERED: ACETAMINOPHEN 500 MG TABLET PO ONE (23:00)
[2019-12-14] MEDS ORDERED: HYDROmorphone PF 2 MG/ML VIAL ONE (00:41)
[2019-12-14] MEDS ORDERED: HYDROmorphone PF 2 MG/ML VIAL IVP ONE (00:45)
[2019-12-14 00:46] LABS: BASO % 0 % (0-3); EOS % 0 % (0-3); HEMOGLOBIN 8.4 g/dL (13.0-17.5); LYMPH # 0.6 x10^3/uL (1.0-4.8); LYMPH % 10 % (24-48); MEAN CORPUSCULAR HEMOGLOBIN 32 pg (25-35); MEAN CORPUSCULAR HGB CONC 34 g/dL (31-37); MEAN CORPUSCULAR VOLUME 96 fL (79-100); MONO # 0.6 x10^3/uL (0.0-1.1); MONO % 9 % (0-9); NEUT # 4.9 x10^3uL (1.8-7.7); NEUT % 80 % (31-73); PLATELET COUNT 93 x10^3/uL (140-400); RED BLOOD COUNT 2.62 x10^6/uL (4.30-5.70); RED CELL DISTRIBUTION WIDTH 25.4 % (11.5-14.5); WHITE BLOOD COUNT 6.2 x10^3/uL (4.0-11.0)
[2019-12-14 00:55] LABS: BACTERIA,URINE 0 /HPF (0-FEW); BILIRUBIN,URINE NEG (NEG); CLARITY,URINE CLEAR; COLOR,URINE YELLOW; GLUCOSE,URINE NEG (NEG); NITRITE,URINE NEG (NEG); RBC,URINE 0 /HPF (0-2); UROBILINOGEN,URINE 0.2 mg/dL (0.2 mg/dL); WBC,URINE 0 /HPF (0-4)
[2019-12-14 00:56] LABS: SQUAMOUS EPITHELIAL CELL,UR OCC /LPF
[2019-12-14 00:57] LABS: CALCIUM 8.1 mg/dL (8.5-10.1); CREATININE 1.5 mg/dL (0.7-1.3); GFR 45.4; POTASSIUM 4.4 mmol/L (3.5-5.1)
[2019-12-14 01:09] LABS: DIRECT BILIRUBIN 0.3 mg/dL (0.0-0.2); MAGNESIUM 1.8 mg/dL (1.8-2.4); TOTAL BILIRUBIN 0.7 mg/dL (0.2-1.0); TOTAL PROTEIN 6.1 g/dL (6.4-8.2)
[2019-12-14 01:21] LABS: ANISOCYTOSIS MARKED; PLT ESTIMATE DECREASED (ADEQUATE)
[2019-12-14 01:22] LABS: HYPOCHROMIA SLIGHT
[2019-12-14] MEDS ORDERED: ONDANSETRON PF 4 MG/2 ML VIAL. IVP PRN (01:45)
[2019-12-14] MEDS ORDERED: HYDROmorphone PF 1 MG/ML DISP.SYRIN IV PRN (01:45)
[2019-12-14] MEDS ORDERED: ACETAMINOPHEN 325 MG TABLET PO PRN (01:45)
[2019-12-14] MEDS ORDERED: FUROSEMIDE 40 MG/4 ML VIAL IVP PRN (02:00)
--- NOTE | 2019-12-14 02:00 | EKG ---
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
[2019-12-14 05:07] VITALS: BP 97/59
[2019-12-14 05:22] VITALS: BP 97/59
[2019-12-14 07:20] VITALS: BP 123/70
[2019-12-14] MEDS ORDERED: IPRATRPIUM/ALBUTEROL 0.5/2.5MG 3 ML NEBU. NEB SCH (08:00)
[2019-12-14 08:10] VITALS: BP 106/56
[2019-12-14] MEDS ORDERED: diphenhydrAMINE 50 MG/ML VIAL IV SCH (09:00)
[2019-12-14] MEDS ORDERED: ACETAMINOPHEN 500 MG TABLET PO SCH (09:00)
== END 2019-12-14 08:18 | disposition home or self-care (01) ==
LOC: ER 22:26
DX: C94.6 Myelodysplastic disease, not elsewhere classified (principal); D64.89 Other specified anemias; J84.10 Pulmonary fibrosis, unspecified; R06.03 Acute respiratory distress; R06.02 Shortness of breath; R07.89 Other chest pain; R53.1 Weakness; R09.02 Hypoxemia; E11.9 Type 2 diabetes mellitus without complications; R79.89 Other specified abnormal findings of blood chemistry; N28.9 Disorder of kidney and ureter, unspecified; I50.9 Heart failure, unspecified; J44.9 Chronic obstructive pulmonary disease, unspecified; F41.9 Anxiety disorder, unspecified; F17.210 Nicotine dependence, cigarettes, uncomplicated; Z90.89 Acquired absence of other organs; Z98.890 Other specified postprocedural states
CPT/HCPCS: 36415; 80048; 80076; 81001; 83690; 83735; 83880; 84443; 84484; 85025; 85379; 85610; 85730; 86850; 86900; 86901; 86920; 93005; 96361; 96374; 96375; 99285; J1170; J1200; J1940; J7030; P9016

== ENCOUNTER 2019-12-29 19:23 | Emergency (ER) | payer MEDICARE, BC ==
[~2019-12-29] VITALS: Ht 170.2 cm; Wt 74.1 kg
[2019-12-29] MEDS ORDERED: IV NORMAL SALINE 1,000ML 1,000 ML IV ONE ×2 (19:45→22:15)
--- NOTE | 2019-12-29 20:02 | PHYS DOC ---
Past History Past Medical History: No Pertinent History, Anemia, Anxiety, CAD, Cancer, CHF, COPD, Other Additional Past Medical Histor: leukemia Past Surgical History: Angioplasty, Knee Replacement, Other Additional Past Surgical Histo: AAA repair, endarterectomy Smoking: Cigarettes, Less than 1pk/day Alcohol Use: None Drug Use: None General Adult EDM: Chief Complaint: SHORTNESS OF BREATH HPI: HPI: Patient is a 79 year old male who presents for evaluation of progressing shortness of air over the past couple of days. Presenting sats were 93%. Patient has a chronic history of dysplastic anemia and often requires blood transfusions. Patient normally seen at [facility]. He has a protocol that he usually receives transfusions when he drops below hemoglobin of 9. Patient has history of congestive heart failure. Patient is here with his daughter. Patient's physician is Dr. Marcelo. Patient is in mild to moderate distress on arrival. Review of Systems: Review of Systems: Constitutional: Denies fever or chills Eyes: Denies change in visual acuity HENT: Denies nasal congestion or sore throat Respiratory: Denies cough has shortness of breath Cardiovascular: Denies chest pain or edema GI: Denies abdominal pain, nausea, vomiting, bloody stools or diarrhea : Denies dysuria Musculoskeletal: Denies back pain or joint pain Integument: Denies rash Neurologic: Denies headache, focal weakness or sensory changes Endocrine: Denies polyuria or polydipsia Lymphatic: Denies swollen glands Psychiatric: Denies depression or anxiety Current Medications: Current Meds: Current Medications Medications (Trade) Dose Ordered Sig/Rod Start Time Stop Time Status Last Admin Dose Admin Sodium Chloride 1,000 ml @ 1,000 mls/hr 1X ONCE 12/29/19 19:45 12/29/19 19:42 DC Allergies: Allergies: Allergies Coded Allergies Type Severity Reaction Last Updated Verified erythromycin base Allergy Intermediate 12/14/19 Yes naproxen Allergy Intermediate 12/14/19 Yes pyridostigmine Allergy Intermediate 12/14/19 Yes Physical Exam: PE: Constitutional: Well developed, well nourished, moderate acute distress. [] HENT: Normocephalic, atraumatic, bilateral external ears normal, oropharynx moist, no oral exudates, nose normal. [] Eyes: PERRL, EOMI, conjunctiva normal, no discharge. [] Neck: Normal range of motion, no tenderness, supple. [] Cardiovascular:Heart rate regular rhythm, no murmur [] Lungs & Thorax: Bilateral breath sounds clear to auscultation but diminished breath sounds bilaterally [] Abdomen: Bowel sounds normal, soft, no tenderness, no masses. [] Skin: Warm, dry, no erythema, no rash. [] Back: No tenderness. [] Extremities: No tenderness, no cyanosis, ROM intact, no edema. [] Neurologic: Alert and oriented, normal motor function, normal sensory function, no focal deficits noted. [] Psychologic: Affect normal, judgement normal, mood normal. [] Current Patient Data: Labs: Laboratory Tests Test 12/29/19 20:35 White Blood Count 7.5 x10^3/uL Red Blood Count 2.75 x10^6/uL Hemoglobin 8.8 g/dL Hematocrit 26.4 % Mean Corpuscular Volume 96 fL Mean Corpuscular Hemoglobin 32 pg Mean Corpuscular Hemoglobin Concent 33 g/dL Red Cell Distribution Width 24.8 % Platelet Count 108 x10^3/uL Neutrophils (%) (Auto) 85 % Lymphocytes (%) (Auto) 7 % Monocytes (%) (Auto) 8 % Eosinophils (%) (Auto) 0 % Basophils (%) (Auto) 1 % Neutrophils # (Auto) 6.3 x10^3uL Lymphocytes # (Auto) 0.5 x10^3/uL Monocytes # (Auto) 0.6 x10^3/uL Eosinophils # (Auto) 0.0 x10^3/uL Basophils # (Auto) 0.0 x10^3/uL Platelet Estimate Pending Sodium Level 135 mmol/L Potassium Level 4.7 mmol/L Chloride Level 100 mmol/L Carbon Dioxide Level 25 mmol/L Anion Gap 10 Blood Urea Nitrogen 26 mg/dL Creatinine 1.3 mg/dL Estimated GFR (Cockcroft-Gault) 53.5 BUN/Creatinine Ratio 20 Glucose Level 111 mg/dL Calcium Level 7.9 mg/dL Total Bilirubin 0.9 mg/dL Aspartate Amino Transf (AST/SGOT) 32 U/L Alanine Aminotransferase (ALT/SGPT) 60 U/L Alkaline Phosphatase 75 U/L Total Protein 6.4 g/dL Albumin 3.9 g/dL Albumin/Globulin Ratio 1.6 Current Medications Medications (Trade) Dose Ordered Sig/Rod Route PRN Reason Start Time Stop Time Status Last Admin Dose Admin Sodium Chloride 1,000 ml @ 1,000 mls/hr 1X ONCE IV 12/29/19 19:45 12/29/19 19:42 DC Vital Signs: Vital Signs Date Time Temp Pulse Resp B/P (MAP) Pulse Ox O2 Delivery O2 Flow Rate FiO2 12/29/19 19:25 98.2 89 20 124/76 (92) 98 Room Air EKG: EKG: [] Radiology/Procedures: Radiology/Procedures: [address] [address] IMAGING REPORT Signed PATIENT: TERELL CALDWELL ACCOUNT: [id number] : 1940 LOCATION: ER AGE: 79 SEX: M EXAM STATUS: REG ER ORD. PHYSICIAN: ANGELITO TIERNEY DO REASON: short of air PROCEDURE: CHEST AP ONLY Examination: CHEST AP ONLY History: Reason: short of air / Spl. Instructions: / History: Comparison: 11/15/2019. Findings: AP portable upright frontal view of the chest was obtained. Left internal jugular infusion port catheter tip terminates at the superior cavoatrial junction. Limited pulmonary inflation is evident. The cardiomediastinal silhouette is normal. Lungs are clear other than minimal right basilar discoid atelectasis.. There is no pneumothorax. No pleural effusion is appreciated. No acute bone abnormality. IMPRESSION: No acute cardiopulmonary process. Electronically signed by: Agustin Awad MD (12/29/2019 8:31 PM) [facility] DICTATED AND SIGNED BY: AGUSTIN AWAD MD DATE: 12/29/192030 CC: BERTRAM MARCELO MD; ANGELITO TIERNEY DO ~ [] Heart Score: Risk Factors: Risk Factors: DM, Current or recent (<one month) smoker, HTN, HLP, family history of CAD, obesity. Risk Scores: Score 0 - 3: 2.5% MACE over next 6 weeks - Discharge Home Score 4 - 6: 20.3% MACE over next 6 weeks - Admit for Clinical Observation Score 7 - 10: 72.7% MACE over next 6 weeks - Early Invasive Strategies Course & Med Decision Making: Course & Med Decision Making Pertinent Labs and Imaging studies reviewed. (See chart for details) [] Dragon Disclaimer: Dragon Disclaimer: This electronic medical record was generated, in whole or in part, using a voice recognition dictation system. 213 Dr. Marcelo was contacted to discuss case. He agreed to transfuse patient 1 unit of packed red blood cells. He wanted to talk to pathologist before considering the second unit since patient was not been anemic yet. Patient has a protocol before transfusion which included Tylenol 6 and 50 mg p.o., Benadryl 50 mg IV as well as Lasix 20 mg after each unit. Patient was requesting something stronger for pain. He requested 4 mg of IV Dilaudid as he states that is his usual dose. I told her I did not feel comfortable with that dose of medication but will give him Dilaudid [address] Marcelo agreed with treatment plan Departure Departure: Impression: Primary Impression: Anemia Qualified Codes: D64.9 - Anemia, unspecified Additional Impression: Dyspnea Qualified Codes: R06.00 - Dyspnea, unspecified Disposition: 09 ADMITTED INPT THIS HOSP Admitting Physician: Bertram Marcelo Condition: STABLE Referrals: BERTRAM MARCELO MD (PCP) ANGELITO TIERNEY DO Dec 29, 2019 20:01
--- NOTE | 2019-12-29 20:35 | RAD ---
Examination: CHEST AP ONLY History: Reason: short of air / Spl. Instructions: / History: Comparison: 11/15/2019. Findings: AP portable upright frontal view of the chest was obtained. Left internal jugular infusion port catheter tip terminates at the superior cavoatrial junction. Limited pulmonary inflation is evident. The cardiomediastinal silhouette is normal. Lungs are clear other than minimal right basilar discoid atelectasis.. There is no pneumothorax. No pleural effusion is appreciated. No acute bone abnormality. IMPRESSION: No acute cardiopulmonary process. Electronically signed by: Agustin Fong MD (12/29/2019 8:31 PM) [facility]
[2019-12-29 21:05] LABS: BASO % 1 % (0-3); EOS % 0 % (0-3); HEMATOCRIT 26.4 % (39.0-53.0); HEMOGLOBIN 8.8 g/dL (13.0-17.5); LYMPH # 0.5 x10^3/uL (1.0-4.8); LYMPH % 7 % (24-48); MEAN CORPUSCULAR HEMOGLOBIN 32 pg (25-35); MEAN CORPUSCULAR HGB CONC 33 g/dL (31-37); MEAN CORPUSCULAR VOLUME 96 fL (79-100); MONO # 0.6 x10^3/uL (0.0-1.1); MONO % 8 % (0-9); NEUT # 6.3 x10^3uL (1.8-7.7); NEUT % 85 % (31-73); PLATELET COUNT 108 x10^3/uL (140-400); RED BLOOD COUNT 2.75 x10^6/uL (4.30-5.70); RED CELL DISTRIBUTION WIDTH 24.8 % (11.5-14.5); WHITE BLOOD COUNT 7.5 x10^3/uL (4.0-11.0)
[2019-12-29 21:15] LABS: ALBUMIN 3.9 g/dL (3.4-5.0); ALBUMIN/GLOBULIN RATIO 1.6 (1.0-1.7); CALCIUM 7.9 mg/dL (8.5-10.1); CREATININE 1.3 mg/dL (0.7-1.3); GFR 53.5; POTASSIUM 4.7 mmol/L (3.5-5.1); TOTAL BILIRUBIN 0.9 mg/dL (0.2-1.0); TOTAL PROTEIN 6.4 g/dL (6.4-8.2)
[2019-12-29] MEDS ORDERED: ACETAMINOPHEN 325 MG TABLET PO ONE (21:45)
[2019-12-29] MEDS ORDERED: FUROSEMIDE 40 MG/4 ML VIAL IVP ONE (21:45)
[2019-12-29] MEDS ORDERED: diphenhydrAMINE 50 MG/ML VIAL IVP ONE (21:45)
[2019-12-29] MEDS ORDERED: HYDROmorphone PF 1 MG/ML DISP.SYRIN IVP ONE (21:45)
[2019-12-29 21:57] LABS: PLT ESTIMATE DECREASED (ADEQUATE); ROULEAUX PRESENT
[2019-12-29 21:58] LABS: ANISOCYTOSIS MOD
[2019-12-29] MEDS ORDERED: ONDANSETRON PF 4 MG/2 ML VIAL. IVP PRN (22:00)
[2019-12-29] MEDS ORDERED: HYDROmorphone PF 1 MG/ML DISP.SYRIN IV PRN (22:00)
[2019-12-30 03:26] VITALS: BP 105/62
[2019-12-30 03:41] VITALS: BP 94/59
[2019-12-30 04:40] VITALS: BP 103/59
[2019-12-30 05:40] VITALS: BP 103/59
[2019-12-30 06:35] VITALS: BP 103/59
[2019-12-30 07:50] LABS: HEMATOCRIT 32.5 % (39.0-53.0); HEMOGLOBIN 10.7 g/dL (13.0-17.5)
[2019-12-30 13:41] VITALS: BP 112/49
[2019-12-30] MEDS ORDERED: HEPARIN PF 500 UNIT/5 ML DISP.SYRIN. IVP ONE (14:00)
== END 2019-12-30 14:52 | disposition left against medical advice (07) ==
LOC: ER 19:23
DX: D64.9 Anemia, unspecified (principal); R06.02 Shortness of breath; F41.9 Anxiety disorder, unspecified; I25.10 Atherosclerotic heart disease of native coronary artery without angina pectoris; I50.9 Heart failure, unspecified; J44.9 Chronic obstructive pulmonary disease, unspecified; Z86.2 Personal history of diseases of the blood and blood-forming organs and certain disorders involving the immune mechanism; Z98.61 Coronary angioplasty status; F17.210 Nicotine dependence, cigarettes, uncomplicated; Z88.1 Allergy status to other antibiotic agents; Z88.8 Allergy status to other drugs, medicaments and biological substances
CPT/HCPCS: 36415; 36430; 71045; 80053; 85014; 85018; 85025; 86850; 86900; 86901; 86920; 96361; 96374; 96375; 96376; 99285; J1170; J1200; J1940; J7030; P9016

== ENCOUNTER 2020-02-09 19:14 | Inpatient (IN) | payer MEDICARE, BC ==
[~2020-02-09] VITALS: Ht 170.2 cm; Wt 72.3 kg
[~2020-02-09 19:14] MED LIST changes: -DOCU-150 PO; +DOCU-158 PO; -LIDO30CR TP; +LIDO30CR2 TP; +MIRT-8 PO; -MIRT30TA3 PO
[2020-02-09 19:30] VITALS: BP 112/56
[2020-02-09] MEDS ORDERED: ACETAMINOPHEN 325 MG TABLET PO PRN (20:00)
[2020-02-09] MEDS ORDERED: HEPARIN PF 500 UNIT/5 ML DISP.SYRIN. IVP PRN (20:00)
[2020-02-09] MEDS ORDERED: NITROGLYCERIN SUBLINGUAL 0.4 MG BOTTLE OF 25. SL PRN (20:30)
[2020-02-09] MEDS ORDERED: BISACODYL 10 MG SUPP.RECT PR PRN (20:30)
[2020-02-09] MEDS ORDERED: BENZONATATE 100 MG CAPSULE. PO PRN (20:30)
[2020-02-09] MEDS ORDERED: oxyCODONE/APAP 10/325 1 TAB TABLET PO PRN (20:30)
[2020-02-09] MEDS ORDERED: LOPERAMIDE 2 MG CAPSULE PO PRN (20:30)
[2020-02-09] MEDS ORDERED: ONDANSETRON ODT 4 MG TAB.RAPDIS PO PRN (20:45)
[2020-02-09 20:53] VITALS: BP 131/57
[2020-02-09] MEDS ORDERED: ATORVASTATIN CALCIUM 20 MG TABLET PO SCH (21:00)
[2020-02-09] MEDS ORDERED: TEMAZEPAM 15 MG CAPSULE PO SCH (21:00)
[2020-02-09] MEDS ORDERED: diphenhydrAMINE 50 MG/ML VIAL IVP ONE (21:00)
[2020-02-09] MEDS ORDERED: MIRTAZAPINE 30 MG TABLET PO SCH (21:00)
[2020-02-09] MEDS: IPRATRPIUM/ALBUTEROL 0.5/2.5MG 3 ML NEBU. NEB SCH (21:00)
[2020-02-09] MEDS: SENNOSIDES 8.6 MG TABLET PO SCH (21:43)
[2020-02-09] MEDS: DICLOFENAC SODIUM 1% TOPICAL GEL 100GM TUBE. TP SCH (21:43)
[2020-02-09] MEDS ORDERED: FUROSEMIDE 20 MG/2 ML VIAL IVP ONE (23:00)
[2020-02-10] MEDS ORDERED: ALBUTEROL SULFATE 2.5 MG/3 ML NEBU. NEB PRN
[2020-02-10 00:25] VITALS: BP 96/44
[2020-02-10] MEDS ORDERED: FUROSEMIDE 20 MG/2 ML VIAL IVP ONE (03:30)
[2020-02-10 06:09] LABS: BASO % 1 % (0-3); EOS % 0 % (0-3); HEMATOCRIT 28.7 % (39.0-53.0); HEMOGLOBIN 9.6 g/dL (13.0-17.5); LYMPH # 0.5 x10^3/uL (1.0-4.8); LYMPH % 14 % (24-48); MEAN CORPUSCULAR HEMOGLOBIN 33 pg (25-35); MEAN CORPUSCULAR HGB CONC 34 g/dL (31-37); MEAN CORPUSCULAR VOLUME 98 fL (79-100); MONO # 0.4 x10^3/uL (0.0-1.1); MONO % 10 % (0-9); NEUT # 2.9 x10^3uL (1.8-7.7); NEUT % 75 % (31-73); PLATELET COUNT 100 x10^3/uL (140-400); RED BLOOD COUNT 2.92 x10^6/uL (4.30-5.70); WHITE BLOOD COUNT 3.9 x10^3/uL (4.0-11.0)
[2020-02-10 06:10] VITALS: BP 131/59
[2020-02-10 06:36] LABS: ANISOCYTOSIS MOD
[2020-02-10 06:37] LABS: PLT ESTIMATE DECREASED (ADEQUATE)
[2020-02-10] MEDS: SENNOSIDES 8.6 MG TABLET PO SCH (09:00)
[2020-02-10] MEDS ORDERED: NON FORMULARY ITEM (Tiotropium Bromide (Spiriva) 18 MCG) IH SCH (09:00)
[2020-02-10] MEDS ORDERED: MULTIVITAMIN I-VITE TABLET. PO SCH (09:00)
[2020-02-10] MEDS ORDERED: ASPIRIN CHEWABLE 81 MG TABLET. PO SCH (09:00)
[2020-02-10] MEDS: DICLOFENAC SODIUM 1% TOPICAL GEL 100GM TUBE. TP SCH (09:00)
[2020-02-10] MEDS ORDERED: HYDROCORTISONE 10 MG TABLET PO SCH (09:00)
[2020-02-10] MEDS ORDERED: FUROSEMIDE 80 MG TABLET PO SCH (09:00)
[2020-02-10] MEDS ORDERED: POTASSIUM CHLORIDE 10 MEQ TABLET.ER. PO SCH (09:00)
[2020-02-10] MEDS ORDERED: FOLIC ACID 1 MG TABLET PO SCH (09:00)
[2020-02-10] MEDS ORDERED: CITALOPRAM 20 MG TABLET. PO SCH (09:00)
[2020-02-10] MEDS: IPRATRPIUM/ALBUTEROL 0.5/2.5MG 3 ML NEBU. NEB SCH ×2 (09:15→09:29)
[2020-02-10 09:49] LABS: CALCIUM 7.4 mg/dL (8.5-10.1); CREATININE 1.2 mg/dL (0.7-1.3); GFR 58.7; POTASSIUM 3.6 mmol/L (3.5-5.1)
[2020-02-10] MEDS ORDERED: SPIRONOLACTONE 25 MG TABLET PO SCH (12:00)
--- NOTE | 2020-02-10 16:20 | RAD ---
Exam: Chest one view INDICATION: Shortness of breath dyspnea TECHNIQUE: Frontal view of the chest Comparisons: 12/29/2019 FINDINGS: Left anterior chest wall port with catheter tip at the atrial caval junction. The cardiomediastinal silhouette and pulmonary vessels are within normal limits. Strandy opacities at the lung bases bilaterally. No pleural effusions. IMPRESSION: Bibasilar strandy airspace disease likely related to atelectasis. Developing infectious process is di fficult to exclude. Electronically signed by: Adebayo Gaming MD (02/10/2020 4:17 PM) [facility]
--- NOTE | 2020-02-10 20:47 | HP ---
ADMIT DATE: HISTORY OF PRESENT ILLNESS: A 79-year-old male came in with generalized weakness, has myelodysplastic disorder and the patient was seen by his ophthalmic technologist/oncologist and was told to come in for a unit of packed RBCs. This was cleared with Dr. Butler who agreed to the patient's admission or observation for infusion only. The patient was feeling weak and tired and run down. Other than that, the patient denied chest pain, did have some shortness of breath and weakness as noted. PAST MEDICAL HISTORY: Endarterectomy on 01/14/2014 right carotid, right-sided neck numbness since endarterectomy, cardiac symptoms, heart murmur, congestive heart failure, AAA repair, cardiac catheterization, Plavix, hypercholesterolemia, bronchitis, interstitial lung disease, pneumonia, wears 2-3 liters nasal cannula constantly, cholecystectomy, obstructive bowel problems, abdominal surgery, bowel surgery, obesity, bone cancer myelodysplastic, orthopedic right knee surgeries x 2, no hardware ____ depression, blood disorders, anemia, blood transfusions, multiple. IMMUNIZATIONS: Tetanus and influenza, pneumococcal up-to-date. ALLERGIES: ERYTHROMYCIN, NAPROXEN AND PYRIDOSTIGMINE. SOCIAL HISTORY: The patient used to be a smoker, having smoked for several years. Denies alcohol or drug use. Full code. REVIEW OF SYSTEMS: The patient denies any headaches, visual change, blurred vision, double vision. Does have shortness of breath and some weakness noted. No chest pain, abdominal pain ____ baseline for him. MEDICATIONS: The patient's medications were reconciled as noted in the chart. PHYSICAL EXAMINATION: GENERAL: Pleasant white male. VITAL SIGNS: Blood pressure 130/57, respiratory rate 19, pulse 94, afebrile. HEENT: The patient's head was atraumatic, normocephalic. Eyes: PERRLA without jaundice. The mouth and throat were normal. NECK: Supple without ____ thyromegaly. LUNGS: Diminished, but clear. CARDIOVASCULAR: Regular sinus rhythm. ABDOMEN: Soft, nontender, no rebound or guarding. Positive bowel sounds, no hepatosplenomegaly was noted. EXTREMITIES: No clubbing, cyanosis, nor edema. NEUROLOGIC: The patient was alert and oriented x 3. LABORATORY DATA: The patient's hemoglobin, I believe, was in the 8 range before transfusion. White count of 3.9. The patient's chemistries, 140, 3.6, BUN and creatinine 24 and 1.2, blood sugar 140. A1c of 7. Uric acid not obtained at this time. In any case, the patient was admitted. IMPRESSION: Anemia, myelodysplastic disorder, dyspnea, weakness. PLAN: The patient will be transfused 1 unit of packed RBCs, stabilized and he was discharged home. BERTRAM MARCELO MD DR: DONALDO/nts JOB#: [id number] / [id number]
--- NOTE | 2020-02-12 21:15 | DS ---
DATE OF DISCHARGE: 02/10/2020 HOSPITAL COURSE: A 79-year-old gentleman with history of myelodysplastic anemia. The patient was given an order by his director of spa and guest experience/oncologist to receive another unit of packed RBCs. He was admitted for observation for that transfusion. In any case, the patient had his unit of packed RBCs. Hemoglobin came up to 9.6 and hematocrit 28. Platelet count low at 100,000. Chemistries were all basically normal except for blood sugar of about 140. The patient made good progress. There were no complications. The patient was discharged home and he will follow up accordingly as an outpatient with his director of spa and guest experience/oncologist. IMPRESSION: Anemia, myelodysplastic disorder, dyspnea, generalized weakness, type 2 diabetes, morbid obesity. BERTRAM MARCELO MD DR: DONALDO/silvia JOB#: [id number] / [id number]
== END 2020-02-10 10:30 | disposition home or self-care (01) | DRG 842 ==
LOC: ICU 19:14
PROVIDERS: ADMIT Family Medicine; ATTEND Family Medicine
DX: C94.6 Myelodysplastic disease, not elsewhere classified (principal); D64.9 Anemia, unspecified; E11.9 Type 2 diabetes mellitus without complications; E66.01 Morbid (severe) obesity due to excess calories; E78.00 Pure hypercholesterolemia, unspecified; I50.9 Heart failure, unspecified; Z86.79 Personal history of other diseases of the circulatory system; Z87.891 Personal history of nicotine dependence; Z90.49 Acquired absence of other specified parts of digestive tract; Z68.25 Body mass index [BMI] 25.0-25.9, adult; Z88.8 Allergy status to other drugs, medicaments and biological substances
CPT/HCPCS: 36415; 36430; 71045; 80048; 85025; 86850; 86900; 86901; 86920; 94640; J1200; P9016

== ENCOUNTER 2020-05-16 21:45 | Emergency (ER) | payer MEDICARE, BC ==
[~2020-05-16] VITALS: Ht 170.2 cm; Wt 72.3 kg
[~2020-05-16 21:45] MED LIST changes: +DOCU-150 PO; -DOCU-158 PO; +LIDO30CR TP; -LIDO30CR2 TP; -MIRT-8 PO; +MIRT30TA3 PO
--- NOTE | 2020-05-16 22:00 | PHYS DOC ---
Past History Past Medical History: No Pertinent History, Anemia, Anxiety, CAD, Cancer, CHF, COPD, Other Additional Past Medical Histor: leukemia Past Surgical History: Angioplasty, Knee Replacement, Other Additional Past Surgical Histo: AAA repair, endarterectomy Smoking: Cigarettes, Less than 1pk/day Alcohol Use: None Drug Use: None General Adult EDM: Chief Complaint: SHORTNESS OF BREATH HPI: HPI: ".. I am going to need a transfusion.. I can tell.. I am so weak.. and get so short of breath...:'.." Here is the established protocol.. ".. " This is what is to happen.. " They told me to come in tomorrow morning.. and get the out pt. transfusion... of two units.. but... I can't wait... I known I am too ...low.." Patient is a 80 year old male who presents with weakness, dyspnea, chest discomfort and request for transfusion of 2 units of packed RBCs. Patient longstanding myelo dysplastic disorder and has been followed by channel cementer insole machine/oncologist he no longer produces RBCs insufficient quality, therefore requiring frequent transfusions of packed RBCs. Patient myelodysplastic disorder has caused multiple other somatic complaints. Patient does follow with Dr. Mora-primary, Dr. Butler-cardiology, oncology Dr. Salinas, and pulmonology.. Patient has a standing order sets for his transfusions. His outpatient order set allows him to receive 2 units of packed RBCs when his hemoglobin is less than 9.0. His pretransfusion meds are Tylenol 650 mg, Benadryl 50 mg IV, Lasix 20 mg IV after each unit for a total of 40 mg of Lasix, and heparin flush posttransfusion. Patient has a port for transfusion. However patient received inpatient transfusions his hemoglobin has to below 7 or have significant dyspnea, chest pain, hypotension, or active GI bleeding . Pt. then will receive only 1 unit at a time until significant symptoms resolved if he is inpatient. Patient received the same pre transfusion meds Patient has significant medical history of endarterectomy on 2013 right carotid, right-sided neck paralysis and numbness since endarterectomy, cardiac angina, heart murmur, congestive heart failure, AAA repair, cardiac catheterizations, hypercholesterol, bronchitis, interstitial lung disease, pneumonia, O2 due to pended at 2 to 3 L nasal cannula, cholecystectomy, obstructive bowel due to adhesions, and abdomen surgery, obesity, bone cancer- myelodysplastic, orthopedic knee surgeries ,x2 of knees on the right has had 2 surgeries, depression, anemia, multiple transfusions and has become very difficult to type and cross. Patient's tetanus is updated, his Pneumovax is current and does get yearly influenza vaccination. Patient reports he is c urrently compliant with all his meds including Plavix. Patient has quit smoking. Use alcohol or drugs. Patient is a full code. Review of Systems: Review of Systems: Constitutional: Denies fever or chills Eyes: Denies change in visual acuity HENT: Denies nasal congestion or sore throat Respiratory: Complains of dyspnea with activity Cardiovascular: Denies chest pain or edema GI: Denies abdominal pain, nausea, vomiting, bloody stools or diarrhea : Denies dysuria Musculoskeletal: Complains of generalized weakness Integument: Denies rash Neurologic: Denies headache, focal weakness or sensory changes Endocrine: Denies polyuria or polydipsia Lymphatic: Denies swollen glands Psychiatric: History of depression and anxiety Family History: Family History: Noncontributory to presentation Current Medications: Current Meds: See nursing for home meds Allergies: Allergies: Allergies Coded Allergies Type Severity Reaction Last Updated Verified erythromycin base Allergy Intermediate 12/14/19 Yes naproxen Allergy Intermediate 12/14/19 Yes pyridostigmine Allergy Intermediate 12/14/19 Yes Physical Exam: PE: Constitutional: Mild distress, chronically ill in appearance. [] HENT: Normocephalic, atraumatic, bilateral external ears normal, oropharynx moist, no oral exudates, nose normal. [] Eyes: PERRLA, EOMI, conjunctiva normal, no discharge. [] Neck: Normal range of motion, no tenderness, supple, no stridor. [] Right endarterectomy scars Cardiovascular: Tachycardia heart rate regular rhythm, no murmur, PMI to the left. Monitor shows a sinus rhythm. Decreased pedal pulses Lungs & Thorax: Bilateral breath sounds equal apex with scattered wheezes auscultation [] port appears to be noninflamed. Surgical scar. Few basilar crackles more purulent than on right base. Abdomen: Bowel sounds normal, soft, no tenderness, old surgery scars, mild distention no masses, no pulsatile masses. [] Skin: Warm, dry, no erythema, no rash. Poor turgor Back: No tenderness, no CVA tenderness. [] Extremities: No tenderness, no cyanosis, no clubbing, ROM intact, no edema. Knee surgery scars. Arthritic changes Neurologic: Alert and oriented X 3, moves all extremities on request, is ambulatory, decreased distal sensory, no new focal deficits noted. [] Psychologic: Affect very anxious, judgement normal, mood depressed EKG: EKG: My interpretation EKG shows a sinus tachycardia at 102 bpm. Does have a right bundle branch block. No findings of acute STEMI of contralateral changes. [place] baseline. [] Radiology/Procedures: Radiology/Procedures: [][address] [address] IMAGING REPORT Signed PATIENT: TERELL CALDWELL ACCOUNT: [id number] : 1940 LOCATION: ER AGE: 80 SEX: M EXAM STATUS: REG ER ORD. PHYSICIAN: ANIBAL PATEL MD REASON: dyspnea PROCEDURE: PORTABLE CHEST 1V XR CHEST 1V 05/16/2020 10:19 PM INDICATION: Dyspnea COMPARISON: 02/10/2020 TECHNIQUE: Portable frontal view of the chest is provided. FINDINGS: The cardiomediastinal silhouette is within normal limits. Left chest wall infusion port catheter is identified with the distal tip projecting over the cavoatrial junction. There is subsegmental atelectasis at the right lung base versus scarring. No significant pleural effusions. No pulmonary vascular congestion. Surgical clips identified at the right neck base. No suspicious osseous abnormality. IMPRESSION: Aeration of the lungs appears similar to the prior examination. Electronically signed by: Kendra Cunningham MD (05/16/2020 10:39 PM) [facility] DICTATED AND SIGNED BY: KENDRA CUNNINGHAM MD DATE: 05/16/202236 CC: BERTRAM MARCELO MD; ANIBAL PATEL MD ~MTH0 0 Heart Score: C/O Chest Pain: No HEART Score for Chest Pain: HEART Score for Chest Pain Response (Comments) Value History Moderately Suspicious 1 ECG Nonspecific Repolarizatio 1 Age > 65 2 Risk Factors 1 or 2 Risk Factors 1 Troponin < Normal Limit 0 Total 5 Risk Factors: Risk Factors: DM, Current or recent (<one month) smoker, HTN, HLP, family history of CAD, obesity. Risk Scores: Score 0 - 3: 2.5% MACE over next 6 weeks - Discharge Home Score 4 - 6: 20.3% MACE over next 6 weeks - Admit for Clinical Observation Score 7 - 10: 72.7% MACE over next 6 weeks - Early Invasive Strategies Course & Med Decision Making: Course & Med Decision Making Pertinent Labs and Imaging studies reviewed. (See chart for details) Patient observed for some time in the emergency department with no significant dysrhythmias or exacerbation of symptoms. No problems maintaining saturations. Patient's hemoglobin came back 8.9. Informed patient per hospital policy blood would not be released for 2 units unless he met other criteria. If patient wished to have the 2 units of packed RBCs to return in the morning and receive them per standing protocol in outpatient clinic. Patient advised he wanted two units so he would return in the morning. Impression: 1. Anemia-due to myelodysplastic syndrome-hemoglobin tonight was 8.9 2. Macrocytic indices of 102 and thrombocytopenia at 101 3. Diabetes glucose 203 4. Mild elevation BUN 30 creatinine 1.4 5 . BNP elevated 785 6. Anxiety [] Dragon Disclaimer: Dragon Disclaimer: This electronic medical record was generated, in whole or in part, using a voice recognition dictation system. Departure Departure: Referrals: BERTRAM MARCELO MD (PCP) Emelia Disclaimer This chart was dictated in whole or in part using Voice Recognition software in a busy, high-work load, and often noisy Emergency Department environment. It may contain unintended and wholly unrecognized errors or omissions. ANIBAL PATEL MD May 16, 2020 22:00
[2020-05-16] MEDS ORDERED: FAMOTIDINE 20 MG/2 ML VIAL IVP ONE (22:15)
[2020-05-16] MEDS ORDERED: IV NORMAL SALINE 1,000ML 1,000 ML IV SCH (22:15)
[2020-05-16] MEDS ORDERED: diphenhydrAMINE 50 MG/ML VIAL IV ONE (22:15)
[2020-05-16] MEDS ORDERED: FUROSEMIDE 40 MG/4 ML VIAL IVP ONE (22:15)
[2020-05-16] MEDS ORDERED: diphenhydrAMINE 50 MG/ML VIAL IVP ONE (22:30)
[2020-05-16] MEDS ORDERED: ACETAMINOPHEN 500 MG TABLET PO ONE (22:30)
--- NOTE | 2020-05-16 22:42 | RAD ---
XR CHEST 1V 05/16/2020 10:19 PM INDICATION: Dyspnea COMPARISON: 02/10/2020 TECHNIQUE: Portable frontal view of the chest is provided. FINDINGS: The cardiomediastinal silhouette is within normal limits. Left chest wall infusion port catheter is i dentified with the distal tip projecting over the cavoatrial junction. There is subsegmental atelectasis at the right lung base versus scarring. No significant pleural effu sions. No pulmonary vascular congestion. Surgical clips identified at the right neck base. No suspicious osseous abnormality. IMPRESSION: Aeration of the lungs appears similar to the prior examination. Electronically signed by: Tonia Askew MD (05/16/2020 10:39 PM) [facility]
[2020-05-16 23:49] LABS: BASO % 0 % (0-3); EOS % 0 % (0-3); HEMATOCRIT 26.2 % (39.0-53.0); HEMOGLOBIN 8.9 g/dL (13.0-17.5); LYMPH # 0.7 x10^3/uL (1.0-4.8); LYMPH % 9 % (24-48); MEAN CORPUSCULAR HEMOGLOBIN 35 pg (25-35); MEAN CORPUSCULAR HGB CONC 34 g/dL (31-37); MEAN CORPUSCULAR VOLUME 102 fL (79-100); MONO # 0.7 x10^3/uL (0.0-1.1); MONO % 9 % (0-9); NEUT # 6.1 x10^3uL (1.8-7.7); NEUT % 82 % (31-73); PLATELET COUNT 101 x10^3/uL (140-400); RED BLOOD COUNT 2.57 x10^6/uL (4.30-5.70); RED CELL DISTRIBUTION WIDTH 23.3 % (11.5-14.5); WHITE BLOOD COUNT 7.5 x10^3/uL (4.0-11.0)
[2020-05-17 00:09] LABS: CALCIUM 7.8 mg/dL (8.5-10.1); CREATININE 1.4 mg/dL (0.7-1.3); POTASSIUM 4.2 mmol/L (3.5-5.1)
[2020-05-17 00:21] LABS: DIRECT BILIRUBIN 0.3 mg/dL (0.0-0.2); MAGNESIUM 1.5 mg/dL (1.8-2.4); TOTAL BILIRUBIN 0.8 mg/dL (0.2-1.0); TOTAL PROTEIN 6.3 g/dL (6.4-8.2)
[2020-05-17 03:15] VITALS: BP 136/70
--- NOTE | 2020-05-17 17:05 | EKG ---
[address] [address] Test Date: 2020-05-16 Test Time: 22:20:15 Pat Name: TERELL CALDWELL Department: Room: Gender: M Faculty Research Physician: : 1940 Requested By: ANIBAL PATEL Order Number: [id number] Reading MD: Measurements Intervals [place] Rate: 102 P: 0 MN: 120 QRS: 4 QRSD: 74 T: 98 QT: 264 QTc: 347 Interpretive Statements SINUS TACHYCARDIA INCOMPLETE RIGHT BUNDLE BRANCH BLOCK NO SPECIFIC ECG ABNORMALITIES RI6.02 No previous ECG available for comparison
== END 2020-05-17 03:15 | disposition home or self-care (01) ==
LOC: ER 21:45
DX: D46.9 Myelodysplastic syndrome, unspecified (principal); D63.8 Anemia in other chronic diseases classified elsewhere; D69.6 Thrombocytopenia, unspecified; E11.9 Type 2 diabetes mellitus without complications; R79.89 Other specified abnormal findings of blood chemistry; F41.9 Anxiety disorder, unspecified; I25.10 Atherosclerotic heart disease of native coronary artery without angina pectoris; J44.9 Chronic obstructive pulmonary disease, unspecified; I50.9 Heart failure, unspecified; F17.210 Nicotine dependence, cigarettes, uncomplicated; E78.00 Pure hypercholesterolemia, unspecified; Z98.61 Coronary angioplasty status; Z88.1 Allergy status to other antibiotic agents; Z88.8 Allergy status to other drugs, medicaments and biological substances
CPT/HCPCS: 36415; 71045; 80048; 80076; 82550; 83690; 83735; 83880; 84443; 84484; 85025; 85610; 85730; 86850; 86900; 86901; 93005; 96361; 96374; 96375; 99285; J1940; J2060; J3490; J7030

== ENCOUNTER 2020-08-21 19:43 | Inpatient (IN) | payer MEDICARE, BC ==
[~2020-08-21] VITALS: Ht 170.2 cm; Wt 72.6 kg
[~2020-08-21 19:43] MED LIST changes: -DOCU-150 PO; +DOCU-158 PO; -LIDO30CR TP; +LIDO30CR2 TP; +MIRT-8 PO; -MIRT30TA3 PO
--- NOTE | 2020-08-21 19:49 | PHYS DOC ---
Past History Past Medical History: No Pertinent History, Anemia, Anxiety, CAD, Cancer, CHF, COPD, Other Additional Past Medical Histor: leukemia Past Surgical History: Angioplasty, Knee Replacement, Other Additional Past Surgical Histo: AAA repair, endarterectomy Smoking: Cigarettes, Less than 1pk/day Alcohol Use: None Drug Use: None General Adult HPI: HPI: ".. I feel like my blood levels have dropped a lot.. I know my clinic visit the Hgb was 9.7.. but it feels... lower... " Patient is a 80 year old male who presents with above hx and complaints of increased dyspnea, fatigue, and weakness. Patient has long standing history of myelodysplastic disorder and frequently in need of a transfusion of packed RBCs. Patient has been significant history of endarterectomy on 2013 right carotid, right neck weakness since endarterectomy, cardiac complains of angina, congestive heart failure, AAA repair, COPD, multiple cardiac catheterizations, hypercholesterolemia, bronchitis, and tissue lung disease, pneumonia, chronic oxygen dependent at 2 to 3 L, obstructive bowel issues, obesity, depression, anemia, anxiety , panic disorder and deconditioning. Patient normally follows with Dr. Marcelo. Follows with Dr. Butler for cardiology. Follows at for his mild dysplastic disorder. Review of Systems: Review of Systems: Constitutional: Denies fever or chills Eyes: Denies change in visual acuity HENT: Denies nasal congestion or sore throat Respiratory: Complains of shortness of breath Cardiovascular: Denies chest pain or edema GI: Denies abdominal pain, nausea, vomiting, bloody stools or diarrhea : Denies dysuria Musculoskeletal: Complains of generalized weakness. Integument: Denies rash Neurologic: Denies headache, focal weakness or sensory changes Endocrine: Denies polyuria or polydipsia Lymphatic: Denies swollen glands Psychiatric: Denies depression or anxiety Family History: Family History: Noncontributory to presentation Current Medications: Current Meds: See nursing for his home meds. Allergies: Allergies: Allergies Coded Allergies Type Severity Reaction Last Updated Verified erythromycin base Allergy Intermediate 12/14/19 Yes naproxen Allergy Intermediate 12/14/19 Yes pyridostigmine Allergy Intermediate 12/14/19 Yes Physical Exam: PE: Constitutional: Moderate acute distress, non-toxic appearance. [] HENT: Normocephalic, atraumatic, bilateral external ears normal, oropharynx moist, no oral exudates, nose normal. [] Eyes: PERRLA, EOMI, conjunctiva pale , no discharge. [] Neck: Normal range of motion, no tenderness, supple, no stridor. [] Cardiovascular: Irregular heart rate regular rhythm, no murmur, PMI to the left. Bedside monitor shows sinus rhythm with multiple PVCs and PAC ACEs Lungs & Thorax: Bilateral breath sounds equal apex with scattered wheezing on auscultation [] midline sternotomy scar Abdomen: Bowel sounds decreased, soft, no tenderness, no masses, no pulsatile masses. Old surgery scar Skin: Warm, dry, no erythema, no rash. Pale Back: No tenderness, no CVA tenderness. [] Extremities: No tenderness, no cyanosis, no clubbing, ROM intact, no edema. Arthritic changes. Old surgery scars. Neurologic: Alert and oriented X 3, moves all extremities on request, has distal sensory, sensory loss on the right side of neck,, no new focal deficits noted. [] Psychologic: Affect very anxious, judgement normal, mood normal. [] EKG: EKG: My interpretation of EKG at 2000 hrs. oh 1 minutes. Shows a sinus rhythm at 82 bpm. Does have occasional PVCs. Atrial premature complexes and ST and T abnormalities consistent with anterior septal ischemia. Or ventricular strain. Overall pattern however similar to prior EKGs on file. [] Radiology/Procedures: Radiology/Procedures: [][place] [address] IMAGING REPORT Signed PATIENT: TERELL CALDWELL ACCOUNT: [id number] : 1940 LOCATION: SOUTH AGE: 80 SEX: M EXAM STATUS: ADM IN ORD. PHYSICIAN: ANIBAL PATEL MD REASON: dyspnea PROCEDURE: PORTABLE CHEST 1V Exam: Chest one view INDICATION: Dyspnea TECHNIQUE: Frontal view of the chest Comparisons: 05/16/2020 FINDINGS: Right anterior chest wall port with catheter tip at the SVC. The cardiomediastinal silhouette and pulmonary vessels are within normal limits. Strandy bibasilar airspace disease. No pleural effusion IMPRESSION: Bibasilar atelectasis. Electronically signed by: Adebayo Gimenez MD (08/21/2020 11:48 PM) [facility] DICTATED AND SIGNED BY: ADEBAYO GIMENEZ MD DATE: 08/21/202346 CC: BERTRAM MARCELO MD; ANIBAL PATEL MD ~MTH0 0 Heart Score: C/O Chest Pain: Yes HEART Score for Chest Pain: HEART Score for Chest Pain Response (Comments) Value History Moderately Suspicious 1 ECG Nonspecific Repolarizatio 1 Age > 65 2 Risk Factors 1 or 2 Risk Factors 1 Troponin < Normal Limit 0 Total 5 Risk Factors: Risk Factors: DM, Current or recent (<one month) smoker, HTN, HLP, family history of CAD, obesity. Risk Scores: Score 0 - 3: 2.5% MACE over next 6 weeks - Discharge Home Score 4 - 6: 20.3% MACE over next 6 weeks - Admit for Clinical Observation Score 7 - 10: 72.7% MACE over next 6 weeks - Early Invasive Strategies Course & Med Decision Making: Course & Med Decision Making Pertinent Labs and Imaging studies reviewed. (See chart for details) Discussed presentation, testing and treatment plan with Dr. Marcelo. Patient to be admitted to his service. Impression: 1. Generalized fatigue and weakness 2. Dyspnea 3. Anemia hemoglobin 8.5 4. Macrocytic indices 101, 5. Thrombocytopenia at 81 6. Elevated D-dimer 1.38 7. Mild hypomagnesium 1.7 8. CHF BNP 1336 9. History of myelodysplastic anemia 10. History of anxiety disorder [] Dragon Disclaimer: Dragon Disclaimer: This electronic medical record was generated, in whole or in part, using a voice recognition dictation system. Departure Departure: Referrals: BERTRAM MARCELO MD (PCP) Emelia Disclaimer This chart was dictated in whole or in part using Voice Recognition software in a busy, high-work load, and often noisy Emergency Department environment. It may contain unintended and wholly unrecognized errors or omissions. ANIBAL PATEL MD Aug 21, 2020 19:49
[2020-08-21] MEDS ORDERED: IPRATRPIUM/ALBUTEROL 0.5/2.5MG 3 ML NEBU. NEB ONE (20:00)
[2020-08-21] MEDS ORDERED: IV RINGERS SOLUTION,LACTATED 1,000 ML IV SCH (20:00)
--- NOTE | 2020-08-21 21:20 | EKG ---
[address] [address] Test Date: 2020-08-21 Test Time: 20:01:37 Pat Name: TERELL CALDWELL Department: Room: Gender: M Commissary Officer: : 1940 Requested By: ANIBAL PATEL Order Number: [id number] Reading MD: Measurements Intervals [place] Rate: 82 P: 31 PA: 116 QRS: 9 QRSD: 88 T: 10 QT: 376 QTc: 442 Interpretive Statements SINUS RHYTHM VENTRICULAR PREMATURE COMPLEX(ES) ATRIAL PREMATURE COMPLEX(ES) ST & T ABNORMALITY, CONSIDER ANTEROSEPTAL ISCHEMIA OR LEFT VENTRICULAR STRAIN ABNORMAL ECG RI6.02 No previous ECG available for comparison
[2020-08-21] MEDS ORDERED: LORazepam 1 MG TABLET PO ONE (21:30)
[2020-08-21 21:46] LABS: BASO % 0 % (0-3); EOS % 0 % (0-3); HEMATOCRIT 24.9 % (39.0-53.0); HEMOGLOBIN 8.5 g/dL (13.0-17.5); LYMPH # 0.7 x10^3/uL (1.0-4.8); LYMPH % 13 % (24-48); MEAN CORPUSCULAR HEMOGLOBIN 35 pg (25-35); MEAN CORPUSCULAR HGB CONC 34 g/dL (31-37); MEAN CORPUSCULAR VOLUME 101 fL (79-100); MONO # 0.4 x10^3/uL (0.0-1.1); MONO % 7 % (0-9); NEUT # 4.4 x10^3uL (1.8-7.7); NEUT % 79 % (31-73); PLATELET COUNT 81 x10^3/uL (140-400); RED BLOOD COUNT 2.45 x10^6/uL (4.30-5.70); WHITE BLOOD COUNT 5.5 x10^3/uL (4.0-11.0)
[2020-08-21 22:06] LABS: HEMOGLOBIN ISTAT 8.2 gm/dL; POTASSIUM ISTAT 4.8 mmol/L (3.5-5.0)
[2020-08-21 22:11] LABS: ALBUMIN 4.2 g/dL (3.4-5.0); DIRECT BILIRUBIN 0.3 mg/dL (0.0-0.2); MAGNESIUM 1.7 mg/dL (1.8-2.4); TOTAL PROTEIN 5.8 g/dL (6.4-8.2)
[2020-08-21 22:22] LABS: ANISOCYTOSIS MOD; PLT ESTIMATE DECREASED (ADEQUATE)
[2020-08-21] MEDS ORDERED: ONDANSETRON PF 4 MG/2 ML VIAL. IVP PRN (22:45)
[2020-08-21] MEDS ORDERED: FUROSEMIDE 40 MG/4 ML VIAL IVP ONE (22:45)
[2020-08-21] MEDS ORDERED: MAGNESIUM HYDROXIDE 2,400 MG/30 ML ORAL.SUSP. PO ONE (22:45)
[2020-08-21] MEDS ORDERED: ACETAMINOPHEN 325 MG TABLET PO PRN ×2 (22:45→23:30)
--- NOTE | 2020-08-21 23:05 | NUR ---
The patient, TERELL CALDWELL, 80 y/o, M admitted by BERTRAM MARCELO MD, to room 111, was given written information regarding hospital policies, unit procedures and contact persons. Valuables were checked and left with the pt. Dr. Marcelo called for orders. Blood transfusion ordered x2; ordered entered. Waiting for processing. Will continue to monitor.
[2020-08-21 23:18] VITALS: BP 131/66
[2020-08-21] MEDS ORDERED: oxyCODONE/APAP 10/325 1 TAB TABLET PO PRN (23:30)
[2020-08-21] MEDS ORDERED: HEPARIN PF 500 UNIT/5 ML DISP.SYRIN. IVP ONE (23:30)
[2020-08-21] MEDS ORDERED: diphenhydrAMINE 50 MG/ML VIAL IVP ONE ×2 (23:30)
--- NOTE | 2020-08-21 23:51 | RAD ---
Exam: Chest one view INDICATION: Dyspnea TECHNIQUE: Frontal view of the chest Comparisons: 05/16/2020 FINDINGS: Right anterior chest wall port with catheter tip at the SVC. The cardiomediastinal silhouette and pulmonary vessels are within normal limits. Strandy bibasilar airspace disease. No pleural effusion IMPRESSION: Bibasilar atelectasis. Electronically signed by: Adebayo Gaming MD (08/21/2020 11:48 PM) [facility]
[2020-08-22] VITALS (10 sets, daily range): BP systolic 87–123; BP diastolic 46–63
--- NOTE | 2020-08-22 03:48 | NUR ---
Patient admitted for low HGB. He takes breathing tx PRN at home and would like to have PRN tx while here not scheduled.
[2020-08-22] MEDS ORDERED: diphenhydrAMINE 50 MG/ML VIAL ONE ×2 (05:03→05:04)
--- NOTE | 2020-08-22 05:52 | NUR ---
Blood transfusion started at 0538. Tubing primed with normal saline and then primed with blood. Transfusion started 75 ml/hr; patient monitored closely for 15 minutes. No reaction noted, transfusion increased to 120 ml/hr. Will continue to monitor.
[2020-08-22] MEDS ORDERED: HEPARIN PF 500 UNIT/5 ML DISP.SYRIN. IVP PRN (07:15)
[2020-08-22] MEDS ORDERED: IPRATRPIUM/ALBUTEROL 0.5/2.5MG 3 ML NEBU. NEB SCH (08:00)
[2020-08-22] MEDS ORDERED: APIXABAN 5 MG TABLET. PO SCH (09:00)
[2020-08-22] MEDS: FUROSEMIDE 20 MG/2 ML VIAL IVP PRN ×2 (09:10→12:37)
--- NOTE | 2020-08-22 10:25 | NUR ---
Nursing Note Blood Transfusion-2nd unit blood transfusion started at 0924 tubing primed with normal saline first then primed with blood transfusion started at 60, patient monitored closely x 15min. No reaction noted, transfusion increased to 120.
[2020-08-22] MEDS ORDERED: IPRATRPIUM/ALBUTEROL 0.5/2.5MG 3 ML NEBU. NEB PRN (10:30)
[2020-08-22] MEDS ORDERED: LOPERAMIDE 2 MG CAPSULE PO PRN (11:45)
[2020-08-22] MEDS ORDERED: NITROGLYCERIN SUBLINGUAL 0.4 MG BOTTLE OF 25. SL PRN (11:45)
[2020-08-22] MEDS ORDERED: BENZONATATE 100 MG CAPSULE. PO PRN (11:45)
[2020-08-22] MEDS ORDERED: BISACODYL 10 MG SUPP.RECT PR PRN (11:45)
[2020-08-22] MEDS ORDERED: ALBUTEROL SULFATE 2.5 MG/3 ML NEBU. NEB PRN (12:00)
[2020-08-22] MEDS ORDERED: ONDANSETRON ODT 4 MG TAB.RAPDIS PO PRN (12:00)
[2020-08-22] MEDS ORDERED: SPIRONOLACTONE 25 MG TABLET PO SCH (12:00)
--- NOTE | 2020-08-22 12:57 | NUR ---
Nursing Note Discharge Pt blood transfusion ended at 1237. Pt had no adverse reactions and refused to stay for the one hour post-transfusion monitoring period. Pt's daughter was called to pick him up. Pt accompanied by staff via wheelchair to the car. Pt given written and verbal discharge education. No scripts given.
--- NOTE | 2020-08-22 13:46 | HP ---
ADMIT DATE: 08/21/2020 HISTORY OF PRESENT ILLNESS: A 80-year-old male with long history of myelodysplastic disorder, came in through the emergency room with increased shortness of breath, general weakness and the like. He also notes increased dyspnea and is symptomatic with drop in his hemoglobin. This is very common scenario for this individual's undergoing chemotherapy and the like down at . He has O positive blood. The patient in turn was admitted not only for transfusion, but also continue to monitor for signs of his heart failure and the like. PAST MEDICAL HISTORY: Right carotid endarterectomy in 2013, headaches, numbness, right-sided neck numbness since endarterectomy, chronic atrial fibrillation, aneurysm, congestive heart failure, AAA repair, Plavix anticoagulation, respiratory disorder, bronchitis, interstitial lung disease. Oxygen administration, wears 2-3 liters of nasal cannula all the time. Cholecystectomy, obstructive bowel disease, hiatal hernia, abdominal aortic aneurysm, bowel surgery, obesity, musculoskeletal disorder, bone cancer, arthritis, orthopedic surgery, psychiatric problems of depression, anemia as noted, blood transfusions, seen by Dr. Powers, noted organisational psychologist at . Tetanus and pneumococcal vaccinations are all up to date. FAMILY HISTORY: Positive for heart disease, lung disease, cancers, coronary artery disease, gallstones, hypertension, COPD, carotid artery stenosis, aortic stenosis repair, abdominal aortic aneurysm. ALLERGIES: ERYTHROMYCIN, NAPROXEN, PYRIDOSTIGMINE. SOCIAL HISTORY: The patient is a partial code. The patient does have a previous history of smoking, distant. Denies hard alcohol or drug use. Neurologically stable partial code is noted. REVIEW OF SYSTEMS: The patient does have increased shortness of breath. Denies chest pain. Does have some exertional dyspnea. PHYSICAL EXAMINATION: GENERAL: The patient on exam, is a white male with multiple ecchymoses to his arms and legs. VITAL SIGNS: Blood pressure 94/60, respiration 18, pulse 70, afebrile, 3 liters 96. The patient is alert and oriented, weak, pale appearing. EYES: PERRLA, conjugate. Mouth and throat were normal. NECK: Supple. No JVD or thyromegaly. LUNGS: Diminished throughout, poor movement of air, some crackles in the bases. CARDIOVASCULAR: with a II/ systolic ejection murmur. ABDOMEN: Soft, nontender, no rebound or guarding. Positive bowel sounds, no hepatosplenomegaly was noted. EXTREMITIES: No clubbing, cyanosis or edema. Extremities also show marked ecchymosis to both arms and scratched dry skin to his legs. NEUROLOGIC: Alert and oriented. LABORATORY DATA: The patient's hemoglobin 8.5 down to 8.2, decreasing. Platelets down to 81,000. White count 5. The patient's chemistries did show an elevated BNP of 1300. Cardiac enzymes negative. Magnesium slightly low at 1.7, . Continue to monitor patient accordingly, give 1 unit of packed RBCs. Continue with diuresis and make further evaluation. IMPRESSION: Acute on top of chronic diastolic heart failure, anemia of chronic disease secondary to myelodysplastic disorder, thrombocytopenia, chronic kidney disease stage IIIA, anxiety. The patient will be admitted for further evaluation and treatment and make adjustments on his home medications and will continue to be monitored for any change in respiratory status. ALVIN/JUDY DR: DONALDO/silvia TID: [id number]
[2020-08-22] MEDS ORDERED: SENNOSIDES 8.6 MG TABLET PO SCH (21:00)
[2020-08-22] MEDS ORDERED: DICLOFENAC SODIUM 1% TOPICAL GEL 100GM TUBE. TP SCH (21:00)
[2020-08-22] MEDS ORDERED: ATORVASTATIN CALCIUM 20 MG TABLET PO SCH (21:00)
[2020-08-22] MEDS ORDERED: TEMAZEPAM 15 MG CAPSULE PO SCH (21:00)
[2020-08-22] MEDS ORDERED: MIRTAZAPINE 30 MG TABLET PO SCH (21:00)
[2020-08-23] MEDS ORDERED: HYDROCORTISONE 10 MG TABLET PO SCH (09:00)
[2020-08-23] MEDS ORDERED: ASPIRIN CHEWABLE 81 MG TABLET. PO SCH (09:00)
[2020-08-23] MEDS ORDERED: POTASSIUM CHLORIDE 20 MEQ TABLET.ER. PO SCH (09:00)
[2020-08-23] MEDS ORDERED: MULTIVITAMIN I-VITE TABLET. PO SCH (09:00)
[2020-08-23] MEDS ORDERED: NON FORMULARY ITEM (Folic Acid 1 CAP) PO SCH (09:00)
[2020-08-23] MEDS ORDERED: NON FORMULARY ITEM (Tiotropium Bromide (Spiriva) 18 MCG) IH SCH (09:00)
[2020-08-23] MEDS ORDERED: CITALOPRAM 20 MG TABLET. PO SCH (09:00)
[2020-08-23] MEDS ORDERED: FUROSEMIDE 80 MG TABLET PO SCH (09:00)
[2020-08-23 14:11] LABS: THYROID STIM HORMONE (TSH) 1.658 uIU/mL (0.358-3.740)
== END 2020-08-22 13:08 | disposition home or self-care (01) | DRG 840 ==
LOC: ER 19:43 → 1 SOUTH 22:34
PROVIDERS: ADMIT Family Medicine; ATTEND Family Medicine
PROC: 30233N1 Transfusion of Nonautologous Red Blood Cells into Peripheral Vein, Percutaneous Approach (ICD-10-PCS; principal; 2020-08-22)
DX: C94.6 Myelodysplastic disease, not elsewhere classified (principal); I50.33 Acute on chronic diastolic (congestive) heart failure; I48.20 Chronic atrial fibrillation, unspecified; J98.11 Atelectasis; D63.8 Anemia in other chronic diseases classified elsewhere; D69.6 Thrombocytopenia, unspecified; E78.00 Pure hypercholesterolemia, unspecified; E83.42 Hypomagnesemia; F41.0 Panic disorder [episodic paroxysmal anxiety]; J44.9 Chronic obstructive pulmonary disease, unspecified; N18.31 Chronic kidney disease, stage 3a; Z79.01 Long term (current) use of anticoagulants; Z82.49 Family history of ischemic heart disease and other diseases of the circulatory system; Z82.5 Family history of asthma and other chronic lower respiratory diseases; Z86.79 Personal history of other diseases of the circulatory system; Z87.891 Personal history of nicotine dependence; Z96.659 Presence of unspecified artificial knee joint; Z99.81 Dependence on supplemental oxygen; E66.9 Obesity, unspecified; F32.9 Major depressive disorder, single episode, unspecified; E11.22 Type 2 diabetes mellitus with diabetic chronic kidney disease
CPT/HCPCS: 36415; 36430; 71045; 80047; 80061; 80076; 82550; 83690; 83735; 83880; 84443; 84484; 85025; 85379; 85610; 85730; 86850; 86900; 86901; 86920; 87040; 93005; 94640; J1200; J1940; J7120; P9016; 99285-25

== ENCOUNTER 2020-09-01 19:40 | Emergency (ER) | payer MEDICARE, BC ==
[~2020-09-01] VITALS: Ht 170.2 cm; Wt 72.6 kg
[2020-09-01 21:19] LABS: BASO % 0 % (0-3); EOS % 0 % (0-3); HEMATOCRIT 27.1 % (39.0-53.0); HEMOGLOBIN 9.2 g/dL (13.0-17.5); LYMPH # 0.5 x10^3/uL (1.0-4.8); LYMPH % 8 % (24-48); MEAN CORPUSCULAR HEMOGLOBIN 34 pg (25-35); MEAN CORPUSCULAR HGB CONC 34 g/dL (31-37); MEAN CORPUSCULAR VOLUME 101 fL (79-100); MONO # 0.5 x10^3/uL (0.0-1.1); MONO % 8 % (0-9); NEUT # 5.5 x10^3uL (1.8-7.7); NEUT % 84 % (31-73); PLATELET COUNT 90 x10^3/uL (140-400); RED BLOOD COUNT 2.68 x10^6/uL (4.30-5.70); RED CELL DISTRIBUTION WIDTH 21.3 % (11.5-14.5); WHITE BLOOD COUNT 6.5 x10^3/uL (4.0-11.0)
[2020-09-01 21:24] LABS: CALCIUM 7.7 mg/dL (8.5-10.1); CREATININE 1.4 mg/dL (0.7-1.3); POTASSIUM 4.9 mmol/L (3.5-5.1)
[2020-09-01 21:30] LABS: ALBUMIN 4.1 g/dL (3.4-5.0); ALBUMIN/GLOBULIN RATIO 1.9 (1.0-1.7); TOTAL PROTEIN 6.3 g/dL (6.4-8.2)
--- NOTE | 2020-09-01 21:35 | PHYS DOC ---
Past History Past Medical History: No Pertinent History, Anemia, Anxiety, CAD, Cancer, CHF, COPD, Other Additional Past Medical Histor: leukemia Past Surgical History: Angioplasty, Knee Replacement, Other Additional Past Surgical Histo: AAA repair, endarterectomy Smoking: Cigarettes, Less than 1pk/day Alcohol Use: Heavy Drug Use: None General Adult EDM: Chief Complaint: SHORTNESS OF BREATH HPI: HPI: ".. I am fatigued.. I feeling like I need another transfusion.. having more generalized muscle and bone pain..." Myelo dysplastic disorder. Patient complains of generalized myalgia, arthralgia, fatigue and malaise. Patient has had frequent ED visits for evaluation of his chronic anemia secondary to his myelodysplastic disorder. Patient has undergone chemotherapy at . Has had frequent transfusion with his admissions here. Patient's blood type is O+. Has been admitted for transfusions but also to monitor for his heart failure. 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 Does have a history of chronic bronchitis and interstitial lung disease. Patient does continue to smoke. Patient has had previous surgeries of cholecystectomy, endarterectomy, obstructive bowel disease, hiatal hernia, aortic aneurysm. Patient follows locally with Dr. Escudero. Follows with with . No recent change in meds. No recent travel. No specific ill contacts. Review of Systems: Review of Systems: Constitutional: Denies fever or chills Eyes: Denies change in visual acuity HENT: Denies nasal congestion or sore throat Respiratory: Denies cough or shortness of breath Cardiovascular: Denies chest pain or edema GI: Denies abdominal pain, nausea, vomiting, bloody stools or diarrhea : Denies dysuria Musculoskeletal: Complains of generalized myalgia and arthralgia and fatigue. Integument: Denies rash Neurologic: Denies headache, focal weakness or sensory changes Endocrine: Denies polyuria or polydipsia Lymphatic: Denies swollen glands Psychiatric: Denies depression or anxiety Family History: Family History: Noncontributory to presentation Current Medications: Current Meds: See nursing for home meds Allergies: Allergies: Allergies Coded Allergies Type Severity Reaction Last Updated Verified erythromycin base Allergy Intermediate 09/01/20 Yes naproxen Allergy Intermediate 09/01/20 Yes pyridostigmine Allergy Intermediate 09/01/20 Yes Physical Exam: PE: Constitutional: Chronically ill and appearance. [] HENT: Normocephalic, atraumatic, bilateral external ears normal, oropharynx moist, no oral exudates, nose normal. [] Eyes: PERRLA, EOMI, conjunctiva normal, no discharge. [] Neck: Normal range of motion, no tenderness, supple, no stridor. Old surgical scars-right side of neck. Cardiovascular: Tachycardia. PMI to the left. Occasional PVC per monitor Lungs & Thorax: Bilateral breath sounds equal apex with scattered wheezes. Vascular access port on right chest wall. Old surgery scars Abdomen: Bowel sounds normal, soft, no tenderness, no masses, no pulsatile masses. Old surgery scars Skin: Warm, dry, no erythema, no rash. Poor turgor Back: No tenderness, no CVA tenderness. [] Extremities: No tenderness, no cyanosis, no clubbing, ROM intact, ankle edema. Arthritic changes. Arthritic changes. Knee surgical scars. No cording appreciated Neurologic: Alert and oriented X 3, moves all extremities on request, does have some plantar sensation loss, no new focal deficits noted. [] Psychologic: Affect anxious, judgement normal, mood depressed. Current Patient Data: Labs: Laboratory Tests Test 09/01/20 20:47 White Blood Count 6.5 x10^3/uL (4.0-11.0) Red Blood Count 2.68 x10^6/uL (4.30-5.70) L Hemoglobin 9.2 g/dL (13.0-17.5) L Hematocrit 27.1 % (39.0-53.0) L Mean Corpuscular Volume 101 fL (79-100) H Mean Corpuscular Hemoglobin 34 pg (25-35) Mean Corpuscular Hemoglobin Concent 34 g/dL (31-37) Red Cell Distribution Width 21.3 % (11.5-14.5) H Platelet Count 90 x10^3/uL (140-400) L Neutrophils (%) (Auto) 84 % (31-73) H Lymphocytes (%) (Auto) 8 % (24-48) L Monocytes (%) (Auto) 8 % (0-9) Eosinophils (%) (Auto) 0 % (0-3) Basophils (%) (Auto) 0 % (0-3) Neutrophils # (Auto) 5.5 x10^3uL (1.8-7.7) Lymphocytes # (Auto) 0.5 x10^3/uL (1.0-4.8) L Monocytes # (Auto) 0.5 x10^3/uL (0.0-1.1) Eosinophils # (Auto) 0.0 x10^3/uL (0.0-0.7) Basophils # (Auto) 0.0 x10^3/uL (0.0-0.2) Platelet Estimate Pending Sodium Level 141 mmol/L (136-145) Potassium Level 4.9 mmol/L (3.5-5.1) Chloride Level 103 mmol/L (98-107) Carbon Dioxide Level 28 mmol/L (21-32) Anion Gap 10 (6-14) Blood Urea Nitrogen 27 mg/dL (8-26) H Creatinine 1.4 mg/dL (0.7-1.3) H Estimated GFR (Cockcroft-Gault) 49.0 BUN/Creatinine Ratio 19 (6-20) Glucose Level 108 mg/dL (70-99) H Calcium Level 7.7 mg/dL (8.5-10.1) L Total Bilirubin 1.0 mg/dL (0.2-1.0) Aspartate Amino Transferase (AST) 33 U/L (15-37) Alanine Aminotransferase (ALT) 54 U/L (16-63) Alkaline Phosphatase 96 U/L (46-116) Total Protein 6.3 g/dL (6.4-8.2) L Albumin 4.1 g/dL (3.4-5.0) Albumin/Globulin Ratio 1.9 (1.0-1.7) H Vital Signs: Vital Signs Date Time Temp Pulse Resp B/P (MAP) Pulse Ox O2 Delivery O2 Flow Rate FiO2 09/01/20 20:01 97.8 88 20 115/51 92 3.0 EKG: EKG: [] Radiology/Procedures: Radiology/Procedures: [] Heart Score: C/O Chest Pain: N/A HEART Score for Chest Pain: HEART Score for Chest Pain Response (Comments) Value History Moderately Suspicious 1 ECG Nonspecific Repolarizatio 1 Age > 65 2 Risk Factors 1 or 2 Risk Factors 1 Total 5 Risk Factors: Risk Factors: DM, Current or recent (<one month) smoker, HTN, HLP, family history of CAD, obesity. Risk Scores: Score 0 - 3: 2.5% MACE over next 6 weeks - Discharge Home Score 4 - 6: 20.3% MACE over next 6 weeks - Admit for Clinical Observation Score 7 - 10: 72.7% MACE over next 6 weeks - Early Invasive Strategies Course & Med Decision Making: Course & Med Decision Making dPertinent Labs and Imaging studies reviewed. (See chart for details) Patient advised he did not currently meet transfusion levels. Hemoglobin tonight was 9.2. Platelets were 101. Patient to follow-up with Dr. Escudero and KRISTEN. Impression: 1. Myelodysplastic cancer 2. Chronic anemia and thrombocytopenia with macrocytic indices 3. COPD 4. Renal failure stage III 5. Chronic heart failurewith diastolic dysfunction 6. Chronic pain and fibromyalgia [] Dragon Disclaimer: Dragon Disclaimer: This electronic medical record was generated, in whole or in part, using a voice recognition dictation system. Departure Departure: Referrals: BERTRAM ESCUDERO MD (PCP) Emelia Disclaimer This chart was dictated in whole or in part using Voice Recognition software in a busy, high-work load, and often noisy Emergency Department environment. It may contain unintended and wholly unrecognized errors or omissions. ANIBAL PATEL MD Sep 01, 2020 21:35
[2020-09-01 21:45] VITALS: BP 113/53
[2020-09-01] MEDS ORDERED: MORPHINE SULFATE 10 MG/ML SYRINGE. SQ ONE (21:45)
[2020-09-01 21:52] LABS: ANISOCYTOSIS MOD; PLT ESTIMATE DECREASED (ADEQUATE)
== END 2020-09-01 21:54 | disposition home or self-care (01) ==
LOC: ER 19:40
DX: C94.6 Myelodysplastic disease, not elsewhere classified (principal); D64.89 Other specified anemias; D69.6 Thrombocytopenia, unspecified; N18.30 Chronic kidney disease, stage 3 unspecified; I50.30 Unspecified diastolic (congestive) heart failure; G89.29 Other chronic pain; M79.7 Fibromyalgia; I48.91 Unspecified atrial fibrillation; F17.210 Nicotine dependence, cigarettes, uncomplicated; F10.20 Alcohol dependence, uncomplicated; E66.9 Obesity, unspecified; Z68.25 Body mass index [BMI] 25.0-25.9, adult; Z86.73 Personal history of transient ischemic attack (TIA), and cerebral infarction without residual deficits; Z98.61 Coronary angioplasty status; Z79.02 Long term (current) use of antithrombotics/antiplatelets; Z88.1 Allergy status to other antibiotic agents; Z88.8 Allergy status to other drugs, medicaments and biological substances; Y90.9 Presence of alcohol in blood, level not specified
CPT/HCPCS: 36415; 80053; 85025; 96372; 99283; J2270

== ENCOUNTER 2020-09-10 21:42 | Emergency (ER) | payer MEDICARE, BC ==
[~2020-09-10] VITALS: Ht 170.2 cm; Wt 72.6 kg
[2020-09-10 22:15] VITALS: BP 132/82
--- NOTE | 2020-09-10 22:30 | PHYS DOC ---
Past History Past Medical History: No Pertinent History, Anemia, Anxiety, CAD, Cancer, CHF, COPD, Other Additional Past Medical Histor: leukemia Past Surgical History: Angioplasty, Knee Replacement, Other Additional Past Surgical Histo: AAA repair, endarterectomy Smoking: Cigarettes, Less than 1pk/day Alcohol Use: Heavy Drug Use: None General Adult EDM: Chief Complaint: SHORTNESS OF BREATH HPI: HPI: 80-year-old male presents with worsening shortness of breath and anxiety. The patient was out to eat with his family celebrating a birthday. The restaurant got very warm and the patient began to feel more short of breath than normal. He is on 2 L all the time. After he got home, he continued to feel short of breath and just "my nerves are shot. I just do not feel right." He called his son and had them bring him to the emergency room for evaluation. The patient did take 0.5 Xanax prior to arrival. They also bumped up his oxygen to 3 L at home. He denies chest pain or diaphoresis. Review of Systems: Review of Systems: Constitutional: Denies fever or chills Eyes: Denies change in visual acuity HENT: Denies nasal congestion or sore throat Respiratory: Denies cough or shortness of breath Cardiovascular: Denies chest pain or edema GI: Denies abdominal pain, nausea, vomiting, bloody stools or diarrhea : Denies dysuria Musculoskeletal: Denies back pain or joint pain Integument: Denies rash Neurologic: Denies headache, focal weakness or sensory changes Endocrine: Denies polyuria or polydipsia Lymphatic: Denies swollen glands Psychiatric: Denies depression or anxiety Allergies: Allergies: Allergies Coded Allergies Type Severity Reaction Last Updated Verified erythromycin base Allergy Intermediate 09/01/20 Yes naproxen Allergy Intermediate 09/01/20 Yes pyridostigmine Allergy Intermediate 09/01/20 Yes Physical Exam: PE: Constitutional: Well developed, well nourished, no acute distress, non-toxic appearance. [] HENT: Normocephalic, atraumatic, bilateral external ears normal, oropharynx moist, no oral exudates, nose normal. [] Eyes: PERRLA, EOMI, conjunctiva normal, no discharge. [] Neck: Normal range of motion, no tenderness, supple, no stridor. [] Cardiovascular:Heart rate regular rhythm, no murmur [] Lungs & Thorax: Bilateral breath sounds clear to auscultation [] Abdomen: Bowel sounds normal, soft, no tenderness, no masses, no pulsatile masses. [] Skin: Warm, dry, no erythema, no rash. [] Back: No tenderness, no CVA tenderness. [] Extremities: No tenderness, no cyanosis, no clubbing, ROM intact, no edema. [] Neurologic: Alert and oriented X 3, normal motor function, normal sensory function, no focal deficits noted. [] Psychologic: Affect normal, judgement normal, mood normal. [] Current Patient Data: Vital Signs: Vital Signs Date Time Temp Pulse Resp B/P (MAP) Pulse Ox O2 Delivery O2 Flow Rate FiO2 09/10/20 22:15 98.6 78 18 132/82 95 Nasal Cannula 3.0 EKG: EKG: Irregular rhythm, rate 78, normal axis, no ST elevation or depression, A. fib. [] Radiology/Procedures: Radiology/Procedures: [] Impressions: EXAMINATION: Chest radiograph. VIEWS: Single view COMPARISON: 08/21/2020 INDICATION:80 years, Male, shortness of breath. FINDINGS: Normal cardiomediastinal silhouette. Similar bibasilar subsegmental atelectasis versus scarring. No focal consolidation. No pleural effusion or pneumothorax. No acute osseous process. Left Mediport catheter terminates in the right atrium. IMPRESSION: Similar bibasilar subsegmental atelectasis and/or scarring. Otherwise, no acute cardiopulmonary process. Electronically signed by: Dee Cheney MD (09/10/2020 10:57 PM) [facility] DICTATED AND SIGNED BY: DEE CHENEY MD DATE: 09/10/20 [id number] CC: SHADE DUPREE DO; BERTRAM MARCELO MD ~MTH0 0 Heart Score: C/O Chest Pain: No Risk Factors: Risk Factors: DM, Current or recent (<one month) smoker, HTN, HLP, family history of CAD, obesity. Risk Scores: Score 0 - 3: 2.5% MACE over next 6 weeks - Discharge Home Score 4 - 6: 20.3% MACE over next 6 weeks - Admit for Clinical Observation Score 7 - 10: 72.7% MACE over next 6 weeks - Early Invasive Strategies Course & Med Decision Making: Course & Med Decision Making Pertinent Labs and Imaging studies reviewed. (See chart for details) EKG is unremarkable. Chest x-ray is negative for acute findings. He has stable old findings. See official report for more details. His hemoglobin is 9.4, but this is better than his last several hemoglobins in the chart. The rest the patient's labs are similar to his previous. I do not see anything acutely concerning. He may have gotten a little emotionally distressed with the hot environment. The extra heat and humidity in the air may have also made him feel like he needed a bit more oxygen. He is comfortable now in the room. He is st able for discharge at this time. [] Dragon Disclaimer: Dragon Disclaimer: This electronic medical record was generated, in whole or in part, using a voice recognition dictation system. Departure Departure: Impression: Primary Impression: Dyspnea Qualified Codes: R06.02 - Shortness of breath Disposition: HOME / SELF CARE / HOMELESS Condition: STABLE Referrals: BERTRAM MARCELO MD (PCP) Patient Instructions: Shortness of Breath, [id number] SHADE DUPREE DO Sep 10, 2020 22:30
--- NOTE | 2020-09-10 22:59 | EKG ---
[address] [address] Test Date: 2020-09-10 Test Time: 22:18:12 Pat Name: TERELL CALDWELL Department: Room: Gender: M Pain Management Nurse: : 1940 Requested By: SHADE DUPREE Order Number: [id number] Reading MD: Measurements Intervals [place] Rate: 78 P: GA: QRS: 13 QRSD: 88 T: 5 QT: 342 QTc: 393 Interpretive Statements IRREGULAR RHYTHM, NO P-WAVE FOUND QRS(T) CONTOUR ABNORMALITY CONSIDER INFERIOR MYOCARDIAL DAMAGE T ABNORMALITY IN ANTEROSEPTAL LEADS ABNORMAL ECG RI6.02 No previous ECG available for comparison
--- NOTE | 2020-09-10 23:00 | RAD ---
EXAMINATION: Chest radiograph. VIEWS: Single view COMPARISON: 08/21/2020 INDICATION:80 years, Male, shortness of breath. FINDINGS: Normal cardiomediastinal silhouette. Similar bibasilar subsegmental atelectasis versus scarring. No f ocal consolidation. No pleural effusion or pneumothorax. No acute osseous process. Left Mediport cath eter terminates in the right atrium. IMPRESSION: Similar bibasilar subsegmental atelectasis and/or scarring. Otherwise, no acute cardiopulmonary proce ss. Electronically signed by: Dee Cheney MD (09/10/2020 10:57 PM) [facility]
[2020-09-10 23:02] LABS: BASO % 1 % (0-3); EOS % 1 % (0-3); HEMATOCRIT 28.2 % (39.0-53.0); HEMOGLOBIN 9.4 g/dL (13.0-17.5); LYMPH # 0.5 x10^3/uL (1.0-4.8); LYMPH % 8 % (24-48); MEAN CORPUSCULAR HEMOGLOBIN 34 pg (25-35); MEAN CORPUSCULAR HGB CONC 33 g/dL (31-37); MEAN CORPUSCULAR VOLUME 101 fL (79-100); MONO # 0.5 x10^3/uL (0.0-1.1); MONO % 8 % (0-9); NEUT # 4.5 x10^3uL (1.8-7.7); NEUT % 82 % (31-73); PLATELET COUNT 86 x10^3/uL (140-400); RED BLOOD COUNT 2.79 x10^6/uL (4.30-5.70); RED CELL DISTRIBUTION WIDTH 21.1 % (11.5-14.5); WHITE BLOOD COUNT 5.5 x10^3/uL (4.0-11.0)
[2020-09-10 23:10] LABS: CREATININE 1.2 mg/dL (0.7-1.3); GFR 58.6; POTASSIUM 4.5 mmol/L (3.5-5.1)
[2020-09-10 23:18] LABS: ALBUMIN/GLOBULIN RATIO 1.9 (1.0-1.7); TOTAL BILIRUBIN 0.9 mg/dL (0.2-1.0); TOTAL PROTEIN 6.1 g/dL (6.4-8.2)
[2020-09-10 23:24] LABS: ANISOCYTOSIS MOD; PLT ESTIMATE DECREASED (ADEQUATE)
[2020-09-10 23:31] LABS: BACTERIA,URINE 0 /HPF (0-FEW); BILIRUBIN,URINE NEG (NEG); CLARITY,URINE CLEAR; COLOR,URINE YELLOW; GLUCOSE,URINE NEG (NEG); NITRITE,URINE NEG (NEG); RBC,URINE 0 /HPF (0-2); SQUAMOUS EPITHELIAL CELL,UR OCC /LPF; UROBILINOGEN,URINE 0.2 mg/dL (0.2 mg/dL); WBC,URINE RARE /HPF (0-4)
[2020-09-10] MEDS ORDERED: MORPHINE SULFATE 2 MG/ML DISP.SYRIN. ONE (23:51)
[2020-09-11] MEDS ORDERED: MORPHINE SULFATE 2 MG/ML DISP.SYRIN. IV ONE
[2020-09-11] MEDS ORDERED: MORPHINE SULFATE 2 MG/ML DISP.SYRIN. IM ONE
== END 2020-09-10 23:54 | disposition home or self-care (01) ==
LOC: ER 21:42
DX: R06.02 Shortness of breath (principal); F17.210 Nicotine dependence, cigarettes, uncomplicated; Z88.6 Allergy status to analgesic agent; Z87.898 Personal history of other specified conditions; Z88.1 Allergy status to other antibiotic agents
CPT/HCPCS: 36415; 71045; 80053; 81001; 84484; 85025; 93005; 96372; 99285; J2270

== ENCOUNTER 2020-09-18 10:48 | Emergency (ER) | payer MEDICARE, BC ==
[~2020-09-18] VITALS: Ht 170.2 cm; Wt 84.8 kg
[2020-09-18] MEDS ORDERED: MORPHINE SULFATE 4 MG/ML DISP.SYRIN. IV ONE (11:00)
--- NOTE | 2020-09-18 11:06 | PHYS DOC ---
Past History Past Medical History: No Pertinent History, Anemia, Anxiety, CAD, Cancer, CHF, COPD, Other Additional Past Medical Histor: leukemia Past Surgical History: Angioplasty, Knee Replacement, Other Additional Past Surgical Histo: AAA repair, endarterectomy Smoking: Cigarettes, Less than 1pk/day Alcohol Use: Heavy Drug Use: None General Adult EDM: Chief Complaint: MECHANICAL FALL HPI: HPI: Patient is a 72 year old male with past medical history of transfusion dependent myelodysplastic syndrome, CAD, CHF, COPD on 3 L/min nasal cannula at baseline who presents with a mechanical fall. Tripped on a curb and went down onto his left side. He skinned his knee and had a skin tear on his left arm. He has some wrist discomfort and left chest wall pain. Denies use of blood thinner. Is on an aspirin 81 mg daily. No LOC. No confusion. Denies neck pain or midline back pain. Review of Systems: Review of Systems: Constitutional: Denies fever or chills Eyes: Denies change in visual acuity HENT: Denies nasal congestion or sore throat Respiratory: Denies cough or shortness of breath Cardiovascular: Denies chest pain or edema GI: Denies abdominal pain, nausea, vomiting, bloody stools or diarrhea : Denies dysuria Musculoskeletal: Left chest wall pain, left hip pain, left wrist pain Integument: Skin tears to left leg and left arm Neurologic: Denies headache, focal weakness or sensory changes Endocrine: Denies polyuria or polydipsia Lymphatic: Denies swollen glands Psychiatric: Denies depression or anxiety Family History: Family History: No pertinent family history Current Medications: Current Meds: Current Medications Medications (Trade) Dose Ordered Sig/Rod Start Time Stop Time Status Last Admin Dose Admin Lidocaine (Lidoderm) 1 patch DAILY 09/19/20 09:00 UNV Miscellaneous (Lidoderm Patch Removal) 1 ea QHS 09/18/20 21:00 UNV Morphine Sulfate (Morphine 4mg Syringe) 4 mg 1X ONCE 09/18/20 11:00 09/18/20 11:01 UNV Allergies: Allergies: Allergies Coded Allergies Type Severity Reaction Last Updated Verified erythromycin base Allergy Intermediate 09/01/20 Yes naproxen Allergy Intermediate 09/01/20 Yes pyridostigmine Allergy Intermediate 09/01/20 Yes Physical Exam: PE: Constitutional: Chronically ill-appearing. On 3 L/min nasal cannula at baseline. [] HENT: Small abrasion to the left forehead. [] Eyes: PERRLA, EOMI, conjunctiva normal, no discharge. [] Neck: No midline C-spine tenderness. Normal range of motion. [] Cardiovascular:Heart rate regular rhythm, no murmur [] Lungs & Thorax: Breath sounds present bilaterally. No chest wall crepitus. Severe tenderness to palpation in the left lateral chest wall. [] Abdomen: Soft, nondistended, nontender. [] Skin: large skin tear to the posterior L forearm. Smaller skin tear to left knee. [] Back: No tenderness, no CVA tenderness. [] Extremities: Complains of mild tenderness over the distal wrist, and tenderness over the left hip joint. Normal range of motion of the wrist, elbow, shoulder and bilateral extremities. Normal range of motion of the knees and hips b ilaterally as well. [] Neurologic: Alert and oriented X 3, normal motor function, normal sensory function, no focal deficits noted. [] Psychologic: Affect normal, judgement normal, mood normal. [] EKG: EKG: [] Radiology/Procedures: Radiology/Procedures: [] Heart Score: C/O Chest Pain: N/A (Traumatic chest pain) Risk Factors: Risk Factors: DM, Current or recent (<one month) smoker, HTN, HLP, family history of CAD, obesity. Risk Scores: Score 0 - 3: 2.5% MACE over next 6 weeks - Discharge Home Score 4 - 6: 20.3% MACE over next 6 weeks - Admit for Clinical Observation Score 7 - 10: 72.7% MACE over next 6 weeks - Early Invasive Strategies Course & Med Decision Making: Course & Med Decision Making Pertinent Labs and Imaging studies reviewed. (See chart for details) Patient is a 80-year-old gentleman who presents with mechanical fall. Main complaints are skin tears on his left upper and lower extremities, and left chest wall pain. On arrival is afebrile and hemodynamically stable. Satting well on his baseline 3 L per nasal cannula. Exam pertinent for large skin tears on the left forearm and a smaller one in his left knee. These do not appear to be amenable to repair with suture. Will bandage with local wound care. Also pertinent for left chest wall tenderness. Will obtain CT imaging of the head, neck given evidence of head trauma, and chest/abdomen pelvis. 1110 X-ray of the left wrist shows an intra-articular radial fracture and an ulnar styloid fracture. We will dress his arm skin tears and then to place a sugar tong splint for stabilization of his nondisplaced fracture. CT head and neck were negative. CT chest/abdomen/pelvis showed left 69 rib fractures, left pubic body fracture and associated hematoma. Fortunately, he is remained hemodynamically stable. He will require transfer to a trauma center. His preference is for [facility]. I will call to discuss with their transfer center. 1320 Accepted by transfer center to [facility] on behalf of Dr. Canchola of the trauma service. 1327 Dragon Disclaimer: Dragon Disclaimer: This electronic medical record was generated, in whole or in part, using a voice recognition dictation system. Departure Departure: Impression: Primary Impression: Multiple fractures of ribs, left side, initial encounter for closed fracture Additional Impressions: Pubic bone fracture Pelvic hematoma Fracture of left radius and ulna Disposition: 02 SHORT TERM HOSPITAL Condition: STABLE Referrals: BERTRAM MARCELO MD (PCP) HERRERA TORRES MD Sep 18, 2020 11:06
[2020-09-18] MEDS ORDERED: IOHEXOL 300 MG/ML 75 ML VIAL. IV ONE (11:15)
[2020-09-18] MEDS ORDERED: LIDOCAINE (700MG/PATCH) PATCH. TD SCH (11:30)
[2020-09-18 12:16] LABS: BASO % 0 % (0-3); EOS % 0 % (0-3); HEMATOCRIT 32.9 % (39.0-53.0); HEMOGLOBIN 10.9 g/dL (13.0-17.5); LYMPH # 0.4 x10^3/uL (1.0-4.8); LYMPH % 5 % (24-48); MEAN CORPUSCULAR HEMOGLOBIN 33 pg (25-35); MEAN CORPUSCULAR HGB CONC 33 g/dL (31-37); MEAN CORPUSCULAR VOLUME 98 fL (79-100); MONO # 0.5 x10^3/uL (0.0-1.1); MONO % 6 % (0-9); NEUT % 88 % (31-73); PLATELET COUNT 79 x10^3/uL (140-400); RED BLOOD COUNT 3.34 x10^6/uL (4.30-5.70); RED CELL DISTRIBUTION WIDTH 21.3 % (11.5-14.5)
[2020-09-18 12:26] LABS: CALCIUM 7.8 mg/dL (8.5-10.1); CREATININE 1.2 mg/dL (0.7-1.3); GFR 58.6; POTASSIUM 4.5 mmol/L (3.5-5.1)
[2020-09-18 12:31] LABS: ALBUMIN/GLOBULIN RATIO 1.8 (1.0-1.7); TOTAL PROTEIN 6.2 g/dL (6.4-8.2)
--- NOTE | 2020-09-18 12:45 | RAD ---
EXAM: CT head and cervical spine without contrast INDICATION: Fall COMPARISON: CT head 12/07/2015 TECHNIQUE: Axial CT imaging through the head and cervical spine without intravenous contrast. Sagitta l and coronal reformats were obtained of the cervical spine. One or more of the following individualized dose reduction techniques were utilized for this examinat ion: 1. Automated exposure control 2. Adjustment of the mA and/or kV according to patient size 3. Use of iterative reconstruction technique. FINDINGS: CT head: No intracranial hemorrhage, acute infarct, or mass lesion. Ventricles and sulci are mildly enlarged. There is mild periventricular white matter hypoattenuation. The calvarium is intact. Visualized porti on of sinuses and mastoid air cells are clear. CT cervical spine: No acute fracture or listhesis. There is mild reversal lordosis and leftward curvature of the cervica l spine. There is moderate disc space narrowing at C5-C6 and C6-C7 with uncovertebral joint prolifera tion resulting in moderate to severe foraminal narrowing bilaterally. Mild disc space narrowing at th e remaining levels. There is severe foraminal narrowing at C3-C4 on the left due to severe facet arth rosis. Moderate facet arthrosis at C2-C3 and milder facet arthrosis elsewhere. No bony canal narrowin g. Prevertebral soft tissue is normal. There are calcifications in the carotid arteries and surgical clips in the right neck. IMPRESSION: 1. No acute intracranial abnormality. 2. No acute osseous abnormality of the cervical spine. Electronically signed by: Elenita Eng MD (09/18/2020 12:43 PM) [id number]
--- NOTE | 2020-09-18 12:48 | RAD ---
Three-view left wrist dated 09/18/2020. No comparison available. CLINICAL INDICATION: Pain after fall. FINDINGS: 3 views left wrist show comminuted intra-articular fracture of the distal radius with mild articular surface depression and minimal displacement. There is a avulsion fracture at the ulnar styloid. Carpa l bones are grossly intact. Mild degenerative change of the first carpometacarpal joint and scaphotra pezial joint. IMPRESSION: 1. Intra-articular impacted fracture of the distal radius. 2. Ulnar styloid avulsion. Electronically signed by: Celestine Deluca MD (09/18/2020 12:45 PM) [id number]
[2020-09-18] MEDS ORDERED: HYDROmorphone PF 1 MG/ML DISP.SYRIN IVP ONE ×2 (13:00→14:30)
--- NOTE | 2020-09-18 13:10 | RAD ---
EXAM: CT CHEST, ABDOMEN, AND PELVIS WITH CONTRAST INDICATION: Fall, left-sided rib pain and left hip pain. Shortness of breath COMPARISON: CT chest 09/01/[address] abdomen and pelvis 04/20/2019 TECHNIQUE: Helical CT imaging performed of the chest, abdomen and pelvis after administration of 60 m L Omnipaque 300 intravenous contrast. Sagittal and coronal reformats were obtained. One or more of the following individualized dose reduction techniques were utilized for this examinat ion: 1. Automated exposure control 2. Adjustment of the mA and/or kV according to patient size 3. Use of iterative reconstruction technique. FINDINGS: CHEST: Thyroid gland and thoracic inlet: Unchanged 1 cm nodule extending posteriorly from the left thyroid l obe. Heart and great vessels: Heart is enlarged, unchanged. No pericardial effusion. There are coronary ar all calcifications. The thoracic aorta is normal in caliber without evidence of dissection. There ar e calcifications in the thoracic aorta and great vessels. Mediastinum and rex: Unchanged small right paratracheal and AP window lymph nodes.. Lungs and pleura: There are mild confluent opacities in the posterior right middle lobe and posterior lower lobes, likely atelectasis. Mild centrilobular emphysema. No pneumothorax. Trace left pleural f luid. Chest wall and axillae: No axillary lymphadenopathy. There is a left Port-A-Cath with tip at the supe rior cavoatrial junction. Bones: There is a nondisplaced left posterior sixth rib fracture and mildly displaced left posterior, seventh, eighth, and ninth rib fractures. ABDOMEN AND PELVIS: Liver: The liver is normal in size. There is a 1.5 cm cyst in the right hepatic lobe. Gallbladder/Biliary Tree: Gallbladder surgically absent. Bile ducts are normal. Pancreas: Normal Spleen: The spleen is enlarged measuring 18.6 cm in AP diameter. Unchanged 1.7 cm subcapsular hypoden se lesion in the spleen. Adrenal Glands: Normal. Kidneys/Ureters/Bladder: Kidneys are normal in size. There is a 1 cm exophytic cystic lesion in the r ight kidney. There is left nephrolithiasis. No hydronephrosis. Ureters are normal. Urinary bladder un remarkable. Reproductive Organs: Prostate gland is normal. Stomach, small bowel, and colon: Stomach is normal. No small bowel obstruction. Appendix and colon ar e unremarkable. 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 There are surgical clips around the aorta and abdominal branch vessels. Distal aorta is ectatic measuring 3 cm. Lymph Nodes: Multiple small gastrohepatic ligament lymph nodes are unchanged.. Peritoneum and retroperitoneum: There is a small hematoma in the pelvis between the pubic symphysis a nd left superior pubic ramus and bladder. No other free fluid or free air. Bones: There is a nondisplaced fracture of the left pubic body and superior pubic ramus. Miscellaneous: There are surgical changes of ventral hernia and left inguinal hernia repair. IMPRESSION: 1. Left posterior sixth-ninth rib fractures. No pneumothorax. 2. Left pubic body and superior pubic ramus fractures. 3. Small hematoma in the pelvis between the bladder and left superior pubic ramus. 4. Other unchanged chronic findings as above. Electronically signed by: Elenita Eng MD (09/18/2020 1:07 PM) [id number]
[2020-09-18 14:28] VITALS: BP 119/63
[2020-09-18 17:51] LABS: PLT ESTIMATE DECREASED (ADEQUATE)
[2020-09-18] MEDS ORDERED: PATCH REMOVAL. MC SCH (21:00)
== END 2020-09-18 14:51 | disposition short-term general hospital (02) ==
LOC: ER 10:48
DX: S22.42XA Multiple fractures of ribs, left side, initial encounter for closed fracture (principal); S32.502A Unspecified fracture of left pubis, initial encounter for closed fracture; S52.572A Other intraarticular fracture of lower end of left radius, initial encounter for closed fracture; S52.612A Displaced fracture of left ulna styloid process, initial encounter for closed fracture; F17.210 Nicotine dependence, cigarettes, uncomplicated; Z88.6 Allergy status to analgesic agent; W01.0XXA Fall on same level from slipping, tripping and stumbling without subsequent striking against object, initial encounter; Y93.89 Activity, other specified; Y92.89 Other specified places as the place of occurrence of the external cause; Y99.8 Other external cause status
CPT/HCPCS: 29125; 36415; 70450; 71260; 72125; 73110; 74177; 80053; 85025; 96374; 96375; 96376; 99285; J1170; J2270; Q9967